=== PATIENT | female | born 2000 | race Caucasian/White ===

== ENCOUNTER 2024-02-21 16:10 | Outpatient (CLI) | payer OTHER, SELFPAY ==
[2024-02-21 16:43] LABS: Basophils Absolute Auto 0.1 K/mm3 (0.0-0.1); Basophils Percent Auto 0.7 % (0.2-1.2); Eosinophils Absolute Auto 0.1 K/mm3 (0-0.3); Eosinophils Percent Auto 1.1 % (0-4.4); Hematocrit 42.3 % (37.0-47.0); Hemoglobin 13.8 g/dL (12.0-15.0); Immature Granulocyte Absolute 0.02 K/mm3 (0.00-0.031); Immature Granulocyte Percent A 0.3 % (0-0.5); Lymphocytes Absolute Auto 2.08 K/mm3 (0.9-3.2); Mean Corpuscular HGB Conc 32.6 g/dl (32-36); Mean Corpuscular Hemoglobin 29.4 pg (26-34); Mean Platelet Volume 10.2 fl (7.4-10.4); Monocytes Absolute Auto 0.5 K/mm3 (0.1-0.6); Monocytes Percent Auto 6.3 % (2.6-8.5); Neutrophils Absolute Auto 4.7 K/mm3 (1.3-6.7); Neutrophils Percent Auto 63.6 % (45.5-73.1); Platelet Count Result 220 k/mm3 (150-375); Red Cell Distribution Width 12.1 % (11.5-14.5); White Blood Count 7.4 K/mm3 (4.5-10.0)
[2024-02-21 16:57] LABS: Alanine Aminotransferase 15 U/L (6-35); Albumin Level 5.1 g/dL (3.5-5.1); Alkaline Phosphatase 67 U/L (38-126); Anion Gap 8 mmol/L (4-12); Aspartate Amino Transferase 27 U/L (14-36); Bilirubin,Total 0.5 mg/dL (0.2-1.3); Blood Urea Nitrogen 12 mg/dL (7-17); Calcium 9.6 mg/dL (8.4-10.2); Carbon Dioxide 25 mmol/L (22-30); Chloride 103 mmol/L (98-107); Estimated Glomerular Filt Rate > 60; Glucose 76 mg/dL (65-110); Potassium 3.9 mmol/L (3.4-5.0); Sodium 136 mmol/L (137-145)
[2024-02-23 01:19] LABS: Progesterone 12.8 ng/mL
== END 2024-02-21 16:11 | disposition home or self-care (01) ==
PROVIDERS: PCP Internal Medicine; Visit Provider Obstetrics & Gynecology
DX: O36.80X0 Pregnancy with inconclusive fetal viability, not applicable or unspecified (principal); Z3A.00 Weeks of gestation of pregnancy not specified
CPT/HCPCS: 36415; 80053; 84144; 84702; 85025

== ENCOUNTER 2024-02-23 13:59 | Outpatient (CLI) | payer OTHER, SELFPAY | END 2024-02-23 14:00 | disposition home or self-care (01) | LOC: ANHLAB 14:01 | PROVIDERS: PCP Internal Medicine; Visit Provider Obstetrics & Gynecology | DX: O36.80X0 Pregnancy with inconclusive fetal viability, not applicable or unspecified (principal); O20.0 Threatened abortion; Z3A.01 Less than 8 weeks gestation of pregnancy | CPT/HCPCS: 36415; 84702; 86850; 86900; 86901 ==

== ENCOUNTER 2024-05-10 09:32 | Outpatient (CLI) | payer MEDICAID, SELFPAY ==
[2024-05-10 10:02] LABS: Hematocrit 37.3 % (37.0-47.0); Hemoglobin 12.5 g/dL (12.0-15.0); Mean Corpuscular HGB Conc 33.5 g/dl (32-36); Mean Corpuscular Hemoglobin 30.2 pg (26-34); Mean Corpuscular Volume 90.1 fl (80-100); Mean Platelet Volume 10.3 fl (7.4-10.4); Platelet Count Result 190 k/mm3 (150-375); Red Blood Count 4.14 M/mm3 (4.2-5.4); Red Cell Distribution Width 13.2 % (11.5-14.5); White Blood Count 8.5 K/mm3 (4.5-10.0)
[2024-05-10 10:50] LABS: HIV 1/2 Ab P24 Ag Result Negative (Negative)
[2024-05-10 10:57] LABS: Hepatitis B Surface Antigen Negative (Negative)
[2024-05-10 11:00] LABS: Rubella IgG Antibody > 110.0 IU/ML
[2024-05-11 10:19] LABS: Varicella IgG Antibody <135.00 index
[2024-05-11 10:33] LABS: Rapid Plasma Reagin Non-Reactive (NonReactive)
[2024-05-11 12:28] LABS: CMV IgG Antibody <0.60 U/mL
[2024-05-18 20:24] LABS: CF Result NEGATIVE (NEGATIVE)
== END 2024-05-10 09:33 | disposition home or self-care (01) ==
LOC: ANHLAB 09:33
PROVIDERS: Student in an Organized Health Care Education/Training Program; PCP Internal Medicine; Visit Provider Obstetrics & Gynecology
DX: Z34.90 Encounter for supervision of normal pregnancy, unspecified, unspecified trimester (principal)
CPT/HCPCS: 36415; 81220; 84702; 85027; 86592; 86644; 86703; 86747; 86762; 86787; 86850; 86900; 86901; 87086; 87088; 87340; G0432

== ENCOUNTER 2025-02-09 00:30 | Day surgery (SDC) | payer OTHER, SELFPAY ==
--- NOTE | 2025-02-02 15:32 | PC.NURSE ---
Report to the Outpatient Waiting Room, entrance under the green pavilion located off [facility], at time _0945_ on date _[id number]_. Planned Procedure Time: _1145_.? Time changes happen often and if your time is changed the preop area will call you the afternoon before. - You and your visitor will be asked to self-screen and do not enter if you have any COVID symptoms. Please call surgeon if you need to reschedule. - A mask is optional within the hospital at this time. Patients may have clear liquids (water, carbonated beverages, clear teas, apple juice) until 3 hours prior to surgery with a maximum of 20 ounces. - No food from midnight until time of surgery and no smoking, or chewing tobacco (or any form of nicotine). No chewing gum, candy or mints. Take only the following medications with a SIP of water on the morning of surgery: ___None____ DO NOT STOP ANY OF YOUR OTHER PRESCRIPTION MEDICATIONS PRIOR TO SURGERY EXCEPT THE FOLLOWING Hold all vitamins and supplements for 3 days per anesthesiologist. Medications to discontinue per physician Date to take last ksqy___[id number]____ Please no make-up, nail citizen of [place], hairspray, perfume, deodorant, or body powder the day of surgery.? No jewelry (including any body piercings) or valuables the day of surgery, leave them at home.? Please take a shower or bath the night before, or the morning of, surgery with an antibacterial soap.? Wear comfortable, loose fitting clothing.? - Jewelry must be removed prior to entering the operating room.? Rings and piercings that are not removed may be cut off. - The hospital will not accept responsibility for valuables.? - Please leave all valuables, including medications, at home the day of surgery. If you are going home after surgery, a licensed pedicab driver must drive you home.? - NO public transportation without another adult if you receive anesthesia. - We recommend that an adult stay with you for 24 hours following discharge. - We also recommend that you do not drive, make important decision, drink alcoholic beverages, or take any drugs that were not prescribed by your health care provider for at least 24 hours after your discharge time. Follow any additional instructions given to you from your surgeon. Telephone instructions given to __Gemma___and asked if any additional questions and then verbalized understanding. Patient advised to call surgeon office or pre surgery nurse liaison [phone] if any additional questions.
[2025-02-02 15:36] VITALS: BMI 21.0
[2025-02-09] VITALS (8 sets, daily range): BP systolic 83–123; BP diastolic 52–85; PULSE 63–79; RESP 14–20; TEMP 36.2–36.5; O2SAT 97–100; BMI 20.2
--- OUTSIDE RECORDS SUMMARY | 2025-02-09 00:32 | XMS_ITS | Clinical Summary ---
Author Organization [facility] Address [address] [place] [address] Care Team Providers Care Body Art Technician Name Role Phone Unavailable Primary Care Provider Unavailabl e Source Comments [facility],non-owned Affiliates and Associated Physician Practices is amultiple site organization consisting of ambulatory clinics and hospital sitesin [place], [place], [place] and [place]. This disclosure is being madepursuant to the Care Everywhere program and may not contain all information available regarding this patient. Last updated 18.[facility] Allergies Active Allergy Reactions Criticality Noted Date Comments Amoxicillin Unknown 04/18/2024 Doxycycline Unknown 04/18/2024 Penicillins Unknown Medium 04/18/2024 Medications * Be aware that medications may not be up to date on this document. Alwaysverify current medications with the patient. Vit-Fe Fumarate-FA ( vitamin) 28-0.8 MG tablet Take 1 (one) tablet by mouth once daily Active ferrous sulfate 325 (65 FE) MG tablet Take 1 (one) tablet by mouth once daily Active Resolved Problems Problem Noted Date Diagnosed Date Resolved Date PRISON: abnormality in pr egnancy (HCC) - Gastroschisis 04/18/2024 05/15/2024 Overview (05/15/2024): Images from the original note were not included. PRISON PATIENT--PLEASE CALL [phone] (ex 2) IF TRIAGED OR ADMITTED Care Provider: Dr. Kimmie Howard [place] [facility] [place] consultants involved: Claudy; JOEL-Jessica Diagnosis: Gastroschisis Planned surveillance: Initial PRISON appointment on 05/25/2024- Patient called on 05/15 to cancel all PRISON appointments. Did not want to reschedule at this time. Stated continuing care elsewhere. Delivery location: Delivery mode: Desired Delivery [place]: follow up: Pharmacy Technician Assistant: Autopsy indicated: Genetics note: Traffic Safety Administrator Concerns: Care plan based on evaluation and is subject to change based on assessment. See Images or Cardiac under Chart Review for US/ ECHO/ MRI reports. Social History Tobacco Use Types Packs/Day Years Used Date Smoking Tobacco: Never Smokeless Tobacco: Never Tobacco Cessation:Counseling Given: Not Answered Alcohol Use Standard Drinks/Week Comments Not Currently 0 (1 standard drink = 0.6 oz pur e alcohol) Comments No Sex and Gender Information Value Date Recorded Sex Assigned at Not on file Legal Sex Female 9:00 AM CDT Gender Identity Not on file Sexual Orientation Not on file Plan of Treatment Health Maintenance Due Date Last Done Comments PAP SMEAR 2001 HIV SCREENING 2016 HPV VACCINE (1 - 3-dose series) 2016 CHLAMYDIA/GONORRHEA SCREENING 2017 MENINGOCOCCAL (Group B) VACCINE SHARED DECISION-MAKING (1 of 2 - Standard) 2017 HEPATITIS C SCREENING 11/26/2019 DTAP/TDAP/TD VACCINES (1 - Tdap) 2020 HEPATITIS B VACCINE (1 of 3 - 19+ 3-dose series) 2020 COVID-19 VACCINE (2 - season) 2024 07/01/2023 DEPRESSION SCREENING 10/11/2024 INFLUENZA VACCINE (Season Ended) 2025 07/12/2019, 08/07/2015, 06/27/2014, Additional history exists ZOSTER VACCINE (1 of 2) 2051 HIB VACCINE Aged Out No longer eligi ble based on patient's age to complete this topic MENINGOCOCCAL GROUPS A/C/Y/W VACCINE Aged Out No longer eligible based on patient's age to complete this topic PNEUMOCOCCAL VACCINE Aged Out No long er eligible based on patient's age to complete this topic Insurance MEDICAID - [place]
--- OUTSIDE RECORDS SUMMARY | 2025-02-09 00:32 | XMS_ITS | Encounter Summary ---
Author Organization [employer] Address [address] [place] [address] Care Team Providers Care Nail Technician Teacher Name Role Phone Hilda Del Rio MD Primary Care Provider [phone] Reason for Visit * Reason Comments Medication Refill Encounter Details Date Type Department Care Team (Late st Contact Info) Description 11/20/2013 Refill [place] [facility] [address] [id number] [facility] [place] [address] Saundra Suarez MD [address] [place] [address] [address] [place] [address] Social History Tobacco Use Types Packs/Day Years Used Date Smoking Tobacco: Never Smokeless Tobacco: Never Alcohol Use Standard Drinks/Week Comments No 0 (1 standard drink = 0.6 oz pur e alcohol) Comments No Sex and Gender Information Value Date Recorded Sex Assigned at Not on file Legal Sex Female 4:12 AM PRODUCT STEWARD Gender Identity Not on file Sexual Orientation Not on file Occupation Industry Job Start Date Job End Date Not on file Not on file Not on file Not on file documented as of this encounter Plan of Treatment Not on file documented as of this encounter Visit Diagnoses Not on filedocumented in this encounter Care Teams Nail Technician Teacher Relationship Specialty Start Date End Date Hilda Del Rio MD PCP - General Pediatrics 09/17/13 documented as of this encounter
--- OUTSIDE RECORDS SUMMARY | 2025-02-09 00:32 | XMS_ITS | Encounter Summary ---
Author Organization [facility] Healthcare Address [address] [place] [address] Care Team Providers Care Bagging Machine Operator Name Role Phone Maya Uriostegui NP Primary Care Provider [phone] Encounter Details Date Type Department Care Team (Late st Contact Info) Description 02/08/2025 Encounter [facility] [address] [place] [id number] Social History Tobacco Use Types Packs/Day Years Used Date Smoking Tobacco: Never Passive Smoke Exposure: Never Smokeless Tobacco: Never Alcohol Use Standard Drinks/Week Comments No 0 (1 standard drink = 0.6 oz pur e alcohol) Social Connection and Isolation Panel [NHANES] A nswer Date Recorded In a typical week, how many times do you talk on the phone with family, friends, or neighbors? Three times a week 09/25/20 How often do you get togethe r with friends or relatives? Three times a week 09/25/2024 How often do you attend chur or christianity services? 1 to 4 times per year 09/25/2024 Do you belong to any clubs o r organizations such as buddhist groups, unions, fraternal or athletic groups, or school groups? No 09/25/2024 How often do you attend meet ings of the clubs or organizations you belong to? Never 09/25/2024 Are you , , di vorced, , never , or living with a partner? Living with partner 09/25/2024 AUDIT-C Answer Date Recorded Q1: How often do you have a drink containing alcohol? Never 02/05/2025 Q2: How many drinks containi ng alcohol do you have on a typical day when you are drinking? Patient does not drink Q3: How often do you have si x or more drinks on one occasion? Never 02/05/2025 Overall Financial Resource Strain (CARDIA) Answe r Date Recorded How hard is it for you to pa y for the very basics like food, housing, medical care, and heating? Not hard at all 09/25/2024 PHQ-2 Answer Date Recorded PHQ-2 Total Score (If total score is 3 or more points, staff should administer the PHQ-9) 0 02/05/2025 Hunger Vital Sign Answer Date Recorded Within the past 12 months, y ou worried that your food would run out before you got the money to buy more. Never true 09/25/20 24 Within the past 12 months, t he food you bought just didn't last and you didn't have money to get more. Never true 09/25/2024 PRAPARE - Transportation Answer Date Re corded In the past 12 months, has l ack of transportation kept you from medical appointments or from getting medications? No 09/10 In the past 12 months, has l ack of transportation kept you from meetings, work, or from getting things needed for daily living? No 09/25/2024 [place] Depression Scale Answer Date Recorded [place] Depression Scale Total 11 11/07/2024 The thought of harming myself has occurred to me . Never 11/07/2024 Housing Stability Vital Sign Answer Jose e Recorded In the last 12 months, was t here a time when you were not able to pay the mortgage or rent on time? No 09/25/2024 In the past 12 months, how m any times have you moved where you were living? 0 09/25/2024 At any time in the past 12 m [facility], were you homeless or living in a jail (including now)? No 09/25/2024 Personal Safety Answer Date Recorded Have you ever been in or are you currently in a harmful physical or emotional relationship or is someone making you feel afraid or unsafe? Denies 09/23/2024 Comments No Sex and Gender Information Value Date Recorded Sex Assigned at Not on file Legal Sex Female 11:28 PM SENIOR OPERATIONS ANALYST Gender Identity Not on file Sexual Orientation Not on file documented as of this encounter Miscellaneous Notes * Note - Kate Bradford RN - 02/07/2025 3:53 PM CDT This note was copied from a baby's chart. Consult Note Patient name: Mine Alicea Mother's Name: Merly Vitale Mother's Age: 23 y.o. 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 Discussed her daily milk volumes. Volumes are steady. I encouraged continued pumping. Mother has no other concerns at this time. Support and encouragement offered. Pumping History: Amount pumped per day: 28-30 oz documented in this encounter Plan of Treatment Not on file documented as of this encounter Visit Diagnoses Not on filedocumented in this encounter Care Teams Bagging Machine Operator Relationship Specialty Start Date End Date Maya Uriostegui NP [address] [address] [place] [address] PCP - General Internal Medicine 02/05/25 documented as of this encounter
--- OUTSIDE RECORDS SUMMARY | 2025-02-09 00:33 | XMS_ITS | Encounter Summary ---
Author Organization [employer] Address [address] [place] [address] Care Team Providers Care Continuous Absorption Process Operator Name Role Phone Hilda Del Rio MD Primary Care Provider [phone] Encounter Details Date Type Department Care Team (Latest Contact Info) Description 05/02/2007 Outpatient Historical [facility] JosepGomez MD [address] [facility] [address] [place] [address] Unspecified Chest Pain (Primary Dx) Social History Tobacco Use Types Packs/Day Years Used Date Smoking Tobacco: Never Assessed Comments Unknown Sex and Gender Information Value Date Recorded Sex Assigned at Not on file Legal Sex Female 4:12 AM GARMENT SORTER Gender Identity Not on file Sexual Orientation Not on file documented as of this encounter Plan of Treatment Not on file documented as of this encounter Visit Diagnoses Diagnosis Chest pain, unspecified- Primary documented in this encounter Care Teams Continuous Absorption Process Operator Relationship Specialty Start Date End Date Hilda Del Rio MD PCP - General Pediatrics 09/17/13 documented as of this encounter
--- OUTSIDE RECORDS SUMMARY | 2025-02-09 00:34 | XMS_ITS | Encounter Summary ---
Author Organization [employer] Address [address] [place] [address] Care Team Providers Care Scrum Coach Name Role Phone Hilda Del Rio MD Primary Care Provider [phone] Encounter Details Date Type Department Care Team (Late st Contact Info) Description 05/02/2007 Outpatient Historical [facility] Support Serv. (Peds Cardiology-[facility]) [address] [place] [address] Gomez Car MD [address] [place] [address] Social History Tobacco Use Types Packs/Day Years Used Date Smoking Tobacco: Never Assessed Comments Unknown Sex and Gender Information Value Date Recorded Sex Assigned at Not on file Legal Sex Female 4:12 AM SOIL FERTILITY EXTENSION SPECIALIST Gender Identity Not on file Sexual Orientation Not on file documented as of this encounter Plan of Treatment Not on file documented as of this encounter Visit Diagnoses Not on filedocumented in this encounter Care Teams Scrum Coach Relationship Specialty Start Date End Date Hilda Del Rio MD PCP - General Pediatrics 09/17/13 documented as of this encounter
--- OUTSIDE RECORDS SUMMARY | 2025-02-09 00:34 | XMS_ITS | Encounter Summary ---
Author Organization [facility] Address [address] [place] [address] Phone Care Team Providers Care Food Beverage Manager Name Role Phone Ruperto Stovall MD Primary Care Provider [phone] Provider, None Primary Care Provider Unavailabl e Provider, None Primary Care Provider Unavailabl e Encounter Details Date Type Department Care Team (Late st Contact Info) Description 09/22/2023 Lab Requisition [facility] [address] [place] [address] Steve Del Cid, PAC [address] [place] [address] Encounter for pre-employment examination Social History Tobacco Use Types Packs/Day Years Used Date Smoking Tobacco: Never Smokeless Tobacco: Never Alcohol Use Standard Drinks/Week Comments Yes 0 (1 standard drink = 0.6 oz pur e alcohol) occasionally Comments No Sex and Gender Information Value Date Recorded Sex Assigned at Not on file Legal Sex Female 8:11 PM CDT Gender Identity Not on file Sexual Orientation Not on file documented as of this encounter Plan of Treatment Not on file documented as of this encounter Procedures Procedure Name Priority Date/Time Associated Diagnosis Comments QUANTIFERON-TB GOLD PLUS Routine 09/22/2023 10:50 AM COLLAR SHAPER OPERATOR Encounter for pre-employment examination documented in this encounter Results * QUANTIFERON-TB GOLD PLUS (09/22/2023 10:50 AM COLLAR SHAPER OPERATOR) NIL CONTROL 0.00 <8.01 IU/mL 09/24/2023 10:[address] [facility] TB ANTIGEN 1 0.04 <0.35 IU/mL 09/24/2023 10:[address] [facility] TB ANTIGEN 2 0.00 <0.35 IU/mL 09/24/2023 10:[address] [facility] MITOGEN CONTROL 10.00 >0.49 IU/mL 09/24/20 10:[address] [facility] INTEPRETATION TB NEGATIVE NEGATIVE, NEGATIVE (TB antigen response less than 25% of internal negative control value) 09/24/2023 10:[address] [facility] Comment:No immune response t o Mycobacterium tuberculosis antigens was noted. M. tuberculosis infection unlikely. Blood No Phlebotomy Charged / Unknown 09/22/2023 10:50 AM COLLAR SHAPER OPERATOR 09/22/2023 12:21 PM [facility] - 09/24/2023 10:22 AM [facility] A POSITIVE QUANTIFERON-TB GOLD PLUS RESULT SHOULD NOT BE THE SOLE OR DEFINITIVE BASIS FOR DETERMINING INFECTION WITH M.TUBERCULOSIS. Diagnosing or excluding tuberculosis disease, and assessing the probability of LTBI, requires a combination of epidemiological, historical, medical and diagnostic findings (e.g., acid fast bacilli (AFB) smear and culture, chest xray) that should be taken into account when interpreting QFT-Plus results. Furthermore, the magnitude of the measured gamma interferon level cannot be correlated to stage or degree of infection, level of immune responsiveness, or likelihood for progression to active disease. The Nil control adjusts for background (e.g., elevated levels of circulating gamma interferon or presence of heterophile antibodies). The Mitogen control serves as an internal positive control and verifies each specimen tested can produce a gamma interferon response. Low mitogen may occur with insufficient lymphocytes, reduced lymphocyte activity due to improper specimen handling, filling/mixing of the mitogen tube, or inability of the patient's lymphocytes to generate gamma interferon. Infection with other Mycobacteria, including M. kansasii, M. szulgai, and M. marinum, may cause false positive results. A negative QuantiFERON-TB Gold Plus result does not preclude the possibility of M. tuberculosis infection or tuberculosis disease: false negative results can be due to incorrect blood sample collection/ improper handling of the specimen, stage of infection (e.g., specimen obtained prior to the development of cellular immune response), co-morbid conditions which affect immune function, or other individual immunological factors. The minimum number of lymphocytes required for a reliable test has not been established and may also be variable. Diagnostic testing for Mycobacterium tuberculosis using Interferon Gamma Release Assays should follow applicable published guidelines, including when testing in populations such as children, women, and HIV-infected or otherwise immunocompromised individuals. https://www.cdc.gov/tb/publications/guidelines/testing.htm us Steve Del Cid [facility] IMMUNOLOGY ORDERABLES Final Result [facility] [address] [place] [address], documented in this encounter Visit Diagnoses Diagnosis Encounter for pre-employment examination Health examination of defined subpopulation documented in this encounter Additional Health Concerns Infection Onset Date Last Indicated Resolved Time COVID - 19 08/21/2024 08/21/2024 08/21/2024 10:3 0 AM COLLAR SHAPER OPERATOR COVID - 19 09/18/2024 09/18/2024 09/18/2024 6:53 PM COLLAR SHAPER OPERATOR documented as of this encounter Care Teams Food Beverage Manager Relationship Specialty Start Date End Date Ruperto Stovall MD [facility] [place] [address] PCP - General Internal Medicine 05/18/23 12/12/23 Provider, None [place] PCP - General 12/13/23 09/17/24 Provider, None [place] PCP - General 09/18/24 documented as of this encounter
--- OUTSIDE RECORDS SUMMARY | 2025-02-09 00:34 | XMS_ITS | Encounter Summary ---
Author Organization [facility] Healthcare Address [address] [place] [address] Care Team Providers Care Branch Services Manager Name Role Phone No, Physician Primary Care Provider [phone] Maya Uriostegui NP Primary Care Provider [phone] Encounter Details Date Type Department Care Team (Late st Contact Info) Description 12/23/2024 Results Follow-Up [facility] Medical [facility] [address] [place] [id number] Eloisa Carr, ROGER [address] [facility] [address] [place] [address] Social History Tobacco Use Types Packs/Day Years [...] 09/25/2024 How often do you attend chur ch or islam services? 1 to 4 times per year 09/25/2024 Do you belong to any clubs o r organizations such as bahai groups, unions, fraternal or athletic groups, or school groups? No 09/25/2024 How often do you attend meet ings of the clubs or organizations you belong to? Never 09/25/2024 Are you , , di vorced, , never , or living with a partner? Living with partner 09/25/2024 Overall Financial Resource Strain (CARDIA) Answe r Date Recorded How hard is it for you to pa y for the very basics like food, housing, medical care, and heating? Not hard at all 09/25/2024 PHQ-2 Answer Date Recorded PHQ-2 Total Score (If total score is 3 or more points, staff should administer the PHQ-9) 0 06/17/2023 Hunger Vital Sign Answer Date Recorded Within [...] things needed for daily living? No 09/25/2024 [place] Depression Scale Answer Date Recorded [place] Depression Scale Total 11 11/07/2024 The thought [...] any time in the past [address] [facility], were you homeless or living in a chcf (including now)? No 09/25/2024 Personal Safety Answer Date Recorded Have you ever been in or are you currently in a harmful physical or emotional relationship or is someone making you feel afraid or unsafe? Denies 09/23/2024 Comments No Sex and Gender Information Value Date Recorded Sex Assigned at Not on file Legal Sex Female 11:28 PM [employer] Gender Identity Not on file Sexual Orientation Not on file documented as of this encounter Miscellaneous Notes * Result Encounter Note - Tiffany Samuel CMA - 12/23/2024 10:13 AM CDT Pt has called and results were relayed. Tiffany * Result Encounter Note - Tiffany Samuel CMA - 12/23/2024 9:20 AM CDT Called with no answer. Voicemail was left asking the patient to give clinic a call. Tiffany documented in this encounter Plan of Treatment Not on file documented as of this encounter Visit Diagnoses Not on filedocumented in this encounter Care Teams Branch Services Manager Relationship Specialty Start Date End Date No, Physician PCP - General 06/07/24 02/04/25 Maya Uriostegui NP [address] [address] PCP - General Internal Medicine 02/05/25 documented as of this encounter
--- OUTSIDE RECORDS SUMMARY | 2025-02-09 00:34 | XMS_ITS | Encounter Summary ---
Author Organization [facility] Address [address] [place] [address] Phone Care Team Providers Care Commercial Driver Name Role Phone Hilda Del Rio MD Primary Care Pro vider Donna Chaudhary MD Primary Care Provider Ruperto Stovall MD Primary Care Provider + No, Physician Primary Care Provider [phone] Maya Uriostegui NP Primary Care Provider [phone] Encounter Details Date Type Department Care Team (Late st Contact Info) Description 12/13/2018 Ophth Exam [facility] Ophthalmology [address] [place] [address] 1st [place] [id number] Christine Miles MD PhD [address] [id number] Social History Tobacco Use Types Packs/Day Years Used Date Smoking Tobacco: Never Smokeless Tobacco: Never Alcohol Use Standard Drinks/Week Comments No 0 (1 standard drink = 0.6 oz pur e alcohol) Comments No Sex and Gender Information Value Date Recorded Sex Assigned at Not on file Legal Sex Female 11:28 PM REFUND SPECIALIST Gender Identity Not on file Sexual Orientation Not on file documented as of this encounter Plan of Treatment Not on file documented as of this encounter Visit Diagnoses Not on filedocumented in this encounter Eye Exam Visual Acuity (Near card) Right eye Left eye Near sc 20/20 20/20 Tonometry (Tonopen, 4:16 PM) Right eye Left eye Pressure 17 17 Pupils Pupils Dark Light Shape React APD Right eye PERRL 4 2 Round Brisk None Left eye PERRL 4 2 Round Brisk None Visual Pate Right eye Left eye Full Full Extraocular Movement Right eye Left eye Full, Ortho Full, Ortho Neuro/Psych Oriented x3: Yes Mood/Affect: Normal Dilation Both eyes: 1.0% Mydriacyl, 1 .0% Cyclogyl @ 4:17 PM External Exam Right eye Left eye External Normal Normal There is a small nodule in the left occipital area, no redness/tenderness/warmth, about 1cm in diameter Slit Lamp Exam Right eye Left eye Lids/Lashes Normal. No obvious l id swelling, nontender, no erythema/warmth/pain. No proptosis Normal Conjunctiva/Sclera White and quiet. few follicles in the inferior palpebral conj, no granuloma White and quiet. few follicles in the inferior palpebral conj, no granuloma Cornea Clear. No KP Clear. No KP Anterior Chamber Deep and quiet. No hypopyon Alicia p and quiet. No hypopyon Iris Round and reactive. No nodules R ound and reactive. No nodules Lens Clear Clear Vitreous Normal Normal Fundus Exam Right eye Left eye Disc Normal. Sharp margin. No edema N ormal. Sharp margin. No edema C/D Ratio 0.25 0.25 Macula Normal. No exudates or macular s tar Normal. No exudates or macular star Vessels Normal. No exudates Normal Periphery Normal. No lesions Normal. No le caryn. Care Teams Commercial Driver Relationship Specialty Start Date End Date Hilda Del Rio MD PCP - General 01/20/12 07/26/19 Donna Chaudhary MD PCP - General Pediatrics 07/27/19 10/20/21 Ruperto Stovall MD [address] [place] [address] PCP - General Internal Medicine 10/21/21 06/06/24 No, Physician PCP - General 06/07/24 02/04/25 Maya Uriostegui NP [address] [address] PCP - General Internal Medicine 02/05/25 documented as of this encounter
--- OUTSIDE RECORDS SUMMARY | 2025-02-09 00:34 | XMS_ITS | Clinical Summary ---
Author Organization [facility] Address [address] [place] [id number] Phone Care Team Providers Care Hazard Waste Handler Name Role Phone Hilda Del Rio MD Primary Care Provider [phone] Allergies Active Allergy Reactions Criticality Noted Date Comments Penicillins Hives,Rash High 09/17/2013 Medications norethindrone-e .estradiol-iron (LO LOESTRIN FE) 1 mg-10 mcg (24)/10 mcg (2) Tablet per tablet Take 1 Tablet by mouth daily at bedtime. 28 Tablet 1 06/29/2017 2:08 PM CDT 06/29/2017 Active DULoxetine (CYMBALTA) 20 mg Capsule, Delayed Release(E.C.) Take 1 Capsule (20 mg) by mouth 2 times daily. 60 Capsule 1 06/29/2017 2:08 PM CDT 06/29/2017 Active Active Problems Problem Noted Date Diagnosed Date DMDD (disruptive mood dysregulation disorder) Anxiety disorder 11/13/2013 Affective psychosis, bipolar Severe episode of recurrent major depressive disorder, without psychotic features Family History Medical History Relation Name Comments Alcohol abuse Maternal Aunt Depression Maternal Uncle Depression Mother Relation Name Status Comments Father Alive Maternal Aunt Maternal Uncle Mother Alive Social History Tobacco Use Types Packs/Day Years Used Date Smoking Tobacco: Never Smokeless Tobacco: Never Tobacco Cessation:Counseling Given: No Alcohol Use Standard Drinks/Week Comments No 0 (1 standard drink = 0.6 oz pur e alcohol) Comments No Sex and Gender Information Value Date Recorded Sex Assigned at Not on file Legal Sex Female 4:12 AM WOOD ROOM HAND Gender Identity Not on file Sexual Orientation Not on file Occupation Industry Job Start Date Job End Date Not on file Not on file Not on file Not on file Last Filed Vital Signs Vital Sign Reading Time Taken Comments Blood Pressure 121/69 06/29/2017 9:19 AM CDT Pulse 80 06/29/2017 9:19 AM CDT Temperature 36.4 C (97.6 F) 06/29/2017 9:19 AM CDT Respiratory Rate 18 06/29/2017 9:19 AM CDT Oxygen Saturation 98% 06/29/2017 9:19 AM CDT Inhaled Oxygen Concentration - - Weight 38.3 kg (84 lb 6.4 oz) 06/27/2017 9:38 AM CDT Height 149.9 cm (4' 11 ) 06/23/2017 3:28 PM CDT Body Mass Index 17.05 06/23/2017 3:28 PM CDT Plan of Treatment Health Maintenance Due Date Last Done Comments HPV VACCINES (1 - 3-dose series) 2016 CHLAMYDIA SCREENING (ANNUAL) 11-24 YEARS 04/11/2018 04/11/2017, 01/23/2017 DTAP/TDAP/TD VACCINES (1 - Tdap) 2020 HEPATITIS B VACCINES (1 of 3 - 19+ 3-dose series) 2020 CERVICAL CANCER SCREENING 2022 HPV/Cotest (21-29) 2022 PAP SMEAR 2022 INFLUENZA VACCINE (#1) 2024 Procedures Procedure Name Priority Date/Time Associated Diagnosis Comments GC/CHLAMYDIA, URINE Routine 04/11/2017 8 :41 AM CDT from Last 3 Months or Most Recently Relevant to Health Maintenance Results * GC/CHLAMYDIA, URINE (04/11/2017 8:41 AM CDT) CHLAMYDIA DNA AMPLIFICATION NOT DETECTED Not Detected 04/12/2017 11:45 AM CDT [facility] GC DNA AMPLIFICATION NOT DETECTED Not Detected 04/12/2017 11:45 AM CDT [facility] Urine URINE SPECIMEN / Unknown Collection / Unknown 04/11/2017 8:41 AM CDT 04/11/2017 8:44 AM CDT [facility] - 04/12/2017 11:45 AM CDT Results should not be used for the evaluation of suspected sexual abuse or for other medico-legal indications. The only legally accepted results are from culture. Results cannot be used to assess therapeutic success or failure since nucleic acids may persist following antimicrobial therapy. This test was developed and its performance characteristics determined by [facility]. It has not been cleared by U.S. Food and Drug Administration.The FDA has determined that such clearance or approval is not necessary. This test is used for clinical purposes. It should not be regarded as investigational or for research.This laboratory is certified under the Clinical Laboratory Improvement Amendments of 1988 (CLIA-88) as qualified to perform high complexity clinical laboratory testing. Stephanie Chavira MD URINE ORDERABLES COM Final Result [facility] CLIA# [id number] [address] [id number] from Last 3 Months or Most Recently Relevant to Health Maintenance Insurance RX [employer] Member Subscriber Plan / Payer (Ef fective for All Dates) Name:Merly Abad Relation to Subscriber:Child Name:Merly Abad Payer ID:Not on file Group ID:[facility] Type:RX Commercial Address: [address] [employer]) [facility] [place] [id number] [place] [address] Advance Directives For more information, please contact: [phone] * Full Code (Latest Code Status on File) Date Activated Date Inactivated Comments 06/23/2017 4:13 PM 06/29/2017 4:14 PM * Full Code Date Activated Date Inactivated Comments 06/09/2017 12:12 PM 06/16/2017 7:12 PM * Full Code Date Activated Date Inactivated Comments 04/08/2017 9:30 PM 04/14/2017 6:41 PM Care Teams Hazard Waste Handler Relationship Specialty Start Date End Date Hilda Del Rio MD PCP - General Pediatrics 09/17/13
--- OUTSIDE RECORDS SUMMARY | 2025-02-09 00:34 | XMS_ITS | Encounter Summary ---
Author Organization [facility] Address [address] [place] [address] Care Team Providers Care Clinical Data Specialist Name Role Phone Hilda Del Rio MD Primary Care Provider [phone] Encounter Details Date Type Department Care Team (Late st Contact Info) Description 06/03/2007 Outpatient Historical [facility] Gomez Car MD [address] [place] [address] Social History Tobacco Use Types Packs/Day Years Used Date Smoking Tobacco: Never Assessed Comments Unknown Sex and Gender Information Value Date Recorded Sex Assigned at Not on file Legal Sex Female 4:12 AM PIECER UP Gender Identity Not on file Sexual Orientation Not on file documented as of this encounter Plan of Treatment Not on file documented as of this encounter Visit Diagnoses Not on filedocumented in this encounter Care Teams Clinical Data Specialist Relationship Specialty Start Date End Date Hilda Del Rio MD PCP - General Pediatrics 09/17/13 documented as of this encounter
--- OUTSIDE RECORDS SUMMARY | 2025-02-09 00:34 | XMS_ITS | Clinical Summary ---
Author Organization [facility] Address [address] [place] [address] Phone Care Team Providers Care Clip Wrapper Name Role Phone Provider, None Primary Care Provider Unavailabl e Allergies Active Allergy Reactions Criticality Noted Date Comments Azithromycin Hives 08/11/2023 Clindamycin Hives 11/08/2022 Doxycycline Hives 11/08/2022 Penicillins Hives 11/08/2022 Medications No known medications Active Problems Estimated Date of Delivery Comme nts Yes 10/26/2024 No known active problems Social History Tobacco Use Types Packs/Day Years Used Date Smoking Tobacco: Never Smokeless Tobacco: Never Tobacco Cessation:Counseling Given: Not Answered Alcohol Use Standard Drinks/Week Comments Yes 0 (1 standard drink = 0.6 oz pur e alcohol) occasionally Estimated Date of Delivery Comme nts Yes 10/26/2024 Sex and Gender Information Value Date Recorded Sex Assigned at Not on file Legal Sex Female 8:11 PM CDT Gender Identity Not on file Sexual Orientation Not on file Last Filed Vital Signs Vital Sign Reading Time Taken Comments Blood Pressure 123/81 09/19/2024 12:11 AM PHONE TRIAGE SPECIALIST Pulse 100 09/19/2024 12:11 AM PHONE TRIAGE SPECIALIST Temperature 36.9 C (98.4 F) 09/18/2024 5:49 PM PHONE TRIAGE SPECIALIST Respiratory Rate 18 09/19/2024 12:11 AM PHONE TRIAGE SPECIALIST Oxygen Saturation 100% 09/19/2024 12:11 AM PHONE TRIAGE SPECIALIST Inhaled Oxygen Concentration - - Weight 59.9 kg (132 lb) 09/18/2024 5:49 PM PHONE TRIAGE SPECIALIST Height 157.5 cm (5' 2 ) 09/18/2024 5:49 PM PHONE TRIAGE SPECIALIST Body Mass Index 24.14 09/18/2024 5:49 PM PHONE TRIAGE SPECIALIST Plan of Treatment Health Maintenance Due Date Last Done Comments Hepatitis C Virus (HCV) Screening 2001 Meningococcal B Immunization (1 of 2 - Standard) 2017 Pap Smear 2022 SARS-COV-2 Immunization ( season) 2024 Pneumococcal Immunization Combined Aged Out 03/14/2003, 08/24/2002, 05/24/2002, Additional history exists No longer eligible based on patient's age to complete this topic Hepatitis B Immunization Completed 003, 08/24/2002, 01/04/2002, Additional history exists Human Papillomavirus (HPV) Immunization Completed 12/28/2013, 08/21/2013, 06/26/2013 Meningococcal Immunization (ACWY) Completed 07/12/2019, 06/26/2013 Influenza Immunization Completed , 07/12/2019, 08/07/2015, Additional history exists DTaP/Tdap/Td Immunization Discontinued 2023, 06/22/2012, 03/01/2007, Additional history exists TdaP Immunization Completed 08/14/2024, 06/22/2012 Respiratory Syncytial Virus (RSV) Immunization (Adult) Completed 08/31/2024 Rotavirus Immunization Aged Out No lo nger eligible based on patient's age to complete this topic Insurance [place] * Guarantor: [facility] Account Type Relation to Patient Date of Phone Billing Address Institutional Other [id number] [place] [address] Care Teams Clip Wrapper Relationship Specialty Start Date End Date Provider, None [place] PCP - General 09/18/24
--- OUTSIDE RECORDS SUMMARY | 2025-02-09 00:34 | XMS_ITS | Clinical Summary ---
Author Organization [facility] Address [address] [place] [address] Care Team Providers Care Manager Financial Reporting Name Role Phone Maya Uriostegui NP Primary Care Provider [phone] Allergies Active Allergy Reactions Criticality Noted Date Comments Amoxicillin Rash Medium 12/21/2024 Azithromycin Hives Medium 08/11/2023 Clindamycin Rash,Hives Medium 12/13/2018 Doxycycline Hives Medium 11/08/2022 Penicillins Hives,Rash Medium 11/08/2022 Reaction: RASH as child Has tolerated cephalosporins Medications vit no.124/iron/fol ic ( VITAMIN ORAL) Take 1 capsule by mouth daily 02/09/20 24 Active acetaminophen 500 mg capsuleIndicati ons:Pain Take 2 capsules (1,000 mg total) by mouth every 6 (six) hours as needed for pain 60 tablet 09/26/20 24 025 Discontin ued(Thera py completed ) docusate sodium (COLACE) 100 mg capsuleIndicati ons:constipatio n,Stool Softener Take 1 capsule (100 mg total) by mouth 2 (two) times a day as needed for constipation 30 capsule 09/26/20 24 025 Discontin ued(Thera py completed ) ibuprofen (ADVIL,MOTRIN) 600 mg tabletIndicatio ns:Cramps Take 1 tablet (600 mg total) by mouth every 6 (six) hours as needed for pain 60 tablet 09/26/20 24 025 Discontin ued(Patie nt Reported) polyethylene glycol (MIRALAX) 17 gram/dose bulk powder Take 17 g by mouth daily as needed (constipation) 289 g 09/26/20 24 025 Discontin ued(Thera py completed ) lidocaine (LIDODERM) 5 % Place 1 patch on the skin daily as needed for pain Remove & discard patch within 12 hours or as directed by MD. 10 patch 09/26/20 24 025 Discontin ued(Thera py completed ) cetirizine (ZyrTEC) 10 mg tablet Take 1 tablet (10 mg total) by mouth daily as needed for allergies 30 tablet 2 09/26/20 24 025 Discontin ued(Thera py completed ) fluticasone propionate (FLONASE) 50 mcg/actuation nasal sprayIndication s:Allergic rhinitis, unspecified seasonality, unspecified trigger Administer 2 sprays into each nostril daily 18.2 mL 12/22/19 25 025 Discontin ued(Thera py completed ) Active Problems Problem Noted Date Diagnosed Date History of pre-eclampsia 02/05/2025 Wellness examination 02/05/2025 Assessment & Plan (02/05/2025 4:38 PM CDT): Routine health maintenance objectives discussed and orders placed for any outstanding screening studies. Physical exam performed as above. Routine annual labs obtained and will be reviewed with patient when results available. Encouraged regular physical activity--moderate activity for a total of 150 minutes per week over 3-5 days. Encouraged healthy diet with regular fresh fruits and vegetables limited in processed carbohydrates. Orders: CBC with auto differential; Future Comprehensive metabolic panel; Future Lipid panel; Future Anxiety 02/05/2025 Assessment & Plan (02/05/2025 4:38 PM CDT): Patient would like to hold off on any anxiety medication at this time. BMI 20.0-20.9, adult 02/05/2025 Assessment & Plan (02/05/2025 4:38 PM CDT): History of ovarian cyst 05/12/2023 Assessment & Plan (09/10/2023 10:29 AM CAR COOPER): Discussed nature of ovarian cyst. Patient aware to help manage/decrease occurrence of ovarian cyst a low-dose oral combined contraceptive pill is often therapeutic. Patient does not desire to be on a form of hormonal control at this time. Can use [id number] NSAIDs for pain relief if needed. Assessment & Plan (05/12/2023 11:31 AM CDT): Pelvic ultrasound results from ER visit on May 03, 2023 reviewed. Patient aware cyst has ruptured and appears to be resolving appropriately. Continue to monitor symptoms and call if pelvic pain returns. Does not desire a form of hormonal contraceptive to help manage cycles and prevent cyst formation at this time. Resolved Problems Problem Noted Date Diagnosed Date Resolved Date care following vaginal delivery 09/23/2024 02/05/2025 Overview (09/26/2024): # ID: Afebrile. No signs/symptoms of infection. VZV NI: declines Varivax. # Heme: Hgb 10.5 > EBL 200 mL. Hemodynamically stable. #Sinus Congestion: Zyrtec ordered. # CV/Pulm: #Pre-eclampsia without severe features - Blood pressures well controlled on no medications . Asymptomatic, denies STAFFORD/RUQ pain/vision changes. CBC/CMP notable for AST/ALT 46/28 , UPC 0.7. Enrolled in home blood pressure monitoring. Text received. # GI/: Tolerating PO. Voiding spontaneously. # Pain: Moderately controlled with above regimen. Lidocaine patch added. # MOC: Declines until visit. # MOF: . Urine drug screen not indicated. Patient informed of results: N/A. # Post DVT prophylaxis: The patient has the following MAJOR risk factors none and the following MINOR risk factors preeclampsia. SCDs ordered for VTE prophylaxis. # Disposition: Follow up task visit with MFM scheduled 10/12. Desires discharge home today. Service Coverage These phones are service phones and carried 03/05 in house: R1 (first call) [phone] R1 alt (second call) [phone] R4 (Chief) [phone] Poor growth affecting management of mother in second trimester 07/31/2024 11/07/2024 Overview (09/11/2024): EFW 9%, AC 7%, PI wnl S/p counseling 08/14/2024 PI elevated- >99% 08/22/2024 PI 91% 09/11/2024 EFW 4%, AC 3%, PI >99% Plan: Continue q3 week growth US Weekly dopplers with BPP Weekly NSTs Delivery currently scheduled for 37w [facility] precautions reviewed Assessment & Plan (09/04/2024 10:19 AM CAR COOPER): PI wnl, BPP 05/18, [facility] precautions reviewed Assessment & Plan (07/31/2024 11:48 AM CDT): Reviewed increased risk of stillbirth with FGR and importance of weekly dopplers and 2x/weekly testing. [facility] precautions reviewed. Maternal varicella, non-immune 06/14/2024 11/07/2024 Overview (06/14/2024): For Varivax pp Supervision of high-risk pre gnancy, unspecified trimester 05/17/2024 11/07/2024 Overview (09/21/2024): [x] Full M Care; [x] Blue Team Referring Provider: Danielito White [] or Medicare Insurance [x] Dating Criteria: LESLY = 1T US [] Labs: Rh [O+], Ab [Neg], Rubella [Im], HIV [Neg], HepBSAg [Neg], RPR [NR ], Hep C [Neg], Varicella [Non-Im ], GC/CT [no records] [x] Aneuploidy NIPT LR [] Carrier Screening [x] CBC/Hgb 12.8/37.3/192k [x] UCx: Insignificant growth 07/11/2024 [] Pap: Never had, needs PP [x] Flu Shot (Jun-Sep): 07/11/24 GT [] COVID: counseled on risks of maternal and and pt declines [] LD ASA (if indicated) starting at 12 weeks: [] EPDS [ 11]; [facility] referral- discussed 2nd Tri Labs: [x] Anatomy ultrasound: Gastroschisis [x] CBC/1hr gtt at 24-28wks: 10.8/33.1/206k, 1hr GTT 121 [x] Tdap (27-36wks): GIVEN 08/14/2024 AM 3rd Tri Labs: [x] CBC/HIV/RPR: 10.4/32.1/236k HIV [NR] RPR [NR] [x] GBS: Negative on 09/04/2024 [x] GC/CT (if indicated): neg/neg [x] testing: Twice weekly testing d/t FGR [x] RSV- desires at 32w 08/31/2024 au Counseling [x] MOD: FCC to schedule at 37 weeks 2/2 elevated dopplers [x] Place of delivery: [facility] [x] Epidural: likely desires but has questions- anesthesia consult placed [x] Blood Products: willing to accept [x] MOC: s/p counseling and pt declines and plans for condoms [x] Method of feeding: breast [x] Meat Carrier: discussed, handouts previously provided [x] PP Depression Discussed: Assessment & Plan (09/11/2024 11:20 AM CAR COOPER): Discussed that the plan could change at anytime. Discussed that if dopplers became worse or if testing was no longer reassuring we could change the plan. 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 Payal SUAREZ on 05/1608/14/2024 elevated dopplers, no longer good study candidate Plan: [x] Serial ultrasounds q4w starting at 24 weeks [x] 2x/weekly testing 2/2 FGR [x] [facility] consultation [x] IOL at 37 weeks 2/2 elevated dopplers History of chlamydia infection 03/19/2023 05/12/2024 Neck mass 10/21/2021 05/12/2024 Patient underweight 07/04/2017 05/12/20 Overview (07/04/2017): Enc pt to not skip meals; enc 3 meals / day with high fat healthy snacks. Encounter for contraceptive management 07/04/2017 05/12/2024 Assessment & Plan (07/04/2017 8:42 PM CDT): The precert for Nexplanon; will insert the implant during 1st 5 days of menstrual cycle; if patient not cooperative in limiting her mother know when her period starts, will have mother bring her in for Nexplanon insertion. Encounters Date Type Department Care Team Description 02/08/[address] [address] 02/05/2025 4:17 PM CDT - 02/05/2025 11:59 PM CDT Hospital Encounter [address] [address] Wellness examination; Dizziness; Near syncope; Screening, lipid Discharge Disposition: Discharge to home or self care 02/05/2025 4:15 PM CDT Lab [facility] Outpatient Lab at [address] [address] Wellness examination (Primary Dx) 02/05/2025 3:30 PM CDT Office Visit [facility] Primary Care at [address] [address] Maya Uriostegui NP BMI 20.0-20.9, adult (Primary Dx); Wellness examination; Dizziness; Near syncope; Screening, lipid; Anxiety 02/05/[address] [address] 01/26/[address] [address] 01/20/[address] [address] 01/09/[address] [address] 12/31/2024 Encounter [place] [address] [place] [address] 12/23/2024 Encounter [place] [address] [address] [place] [address] 12/23/2024 Results Follow-Up [facility] at [address] [place] [address] Eloisa Carr NP 12/21/2024 10:19 AM CDT - 12/21/2024 11:59 PM CDT Hospital Encounter [address] [address] Sore throat Discharge Disposition: Discharge to home or self care 12/21/2024 9:00 AM CDT Office Visit [facility] at [place] [address] [place] [address] Sapphire Laws NP Allergic rhinitis, unspecified seasonality, unspecified trigger (Primary Dx); Sore throat 12/17/2024 Encounter [place] [address] [place] [address] 12/10/2024 Encounter [place] [address] [place] [address] 12/05/2024 Encounter [place] [address] [place] [address] 11/26/2024 Encounter [address] [address] [place] [address] 11/14/2024 Encounter [place] [address] [address] [place] [address] from Last 3 Months Immunizations Immunization Administration Dates Next Due DTaP 03/01/2007, 3,05/24/2002,03/24,02/01/2002 HPV, Quadrivalent 12/28/2013,08/21/2013,06/26/20 13 Hep A, Pediatric 06/29/2014,06/26/2013 Hep B, Adolescent or Pediatric 06/20/2003,2001 Hep B, Unspecified 08/24/2002,2001 HiB 03/14/2003, 2,03/24/2002,02/01 IPV 03/01/2007, 3,03/24/2002,02/01 Influenza LAIV (Nasal) 06/22/2012,08/27/2011, Influenza, Live, Intranasal, Quadrivalent 08/07/2015,06/27/2014,06/26/2013 Influenza, Quadrivalent, Spl it, Preservative Free, Intramuscular 07/12/2019 Influenza, Trivalent, Cell Culture-based MDCK, Preservative Free, Antibiotic Free, Intramuscular 07/11/2024 Influenza, Trivalent, Preser vative Free, Intramuscular 08/27/2005 MMR 03/01/2007,03/14/2003 Meningococcal Conjugate (Menveo) 07/12/2019,06/11 Pneumococcal Conjugate 7-Valent 03/14/20 03,08/24/2002,05/24/2002,02/01 RSV, Bivalent, Protein Subun it Rsvpref, Diluent (Abrysvo) 08/31/2024 Tdap 08/14/2024,06/22/2012 Varicella 09/26/2024(Deferred: Patient Refused),03/01/2007,12/12/2002 Surgical History Surgery Date Site/Laterality Comments WISDOM TOOTH EXTRACTION AVULSION TOENAIL PLATE Medical History Medical History Date Comments Anxiety Ear infection 05/09/2024 double Patient underweight 07/04/2017 Enc pt to no t skip meals; enc 3 meals / day with high fat healthy snacks. Neck mass 10/21/2021 History of chlamydia infection 03/19/2023 Family History Medical History Relation Name Comments Hypertension Father Heart disease Mother Thyroid disease Mother Relation Name Status Comments Father Alive Mother Alive Social History Tobacco Use Types Packs/Day Years Used Date Smoking Tobacco: Never Passive Smoke Exposure: Never Smokeless Tobacco: Never Tobacco Cessation:Counseling Given: Not Answered Alcohol Use Standard Drinks/Week Comments No 0 [...] often do you attend chur ch or confucianist services? 1 to 4 times per year 09/25/2024 Do you belong to any clubs o r organizations such as hindu groups, unions, fraternal or athletic groups, or [...] things needed for daily living? No 09/25/2024 Salem Depression Scale Answer Date Recorded Salem Depression Scale Total 11 11/07/2024 The thought [...] any time in the past 12 m [facility], were you homeless or living in a intermediate (including now)? No 09/25/2024 Personal Safety Answer Date Recorded Have you ever been in or are you currently in a harmful physical or emotional relationship or is someone making you feel afraid or unsafe? Denies 09/23/2024 Comments No Sex and Gender Information Value Date Recorded Sex Assigned at Not on file Legal Sex Female 11:28 PM CAR COOPER Gender Identity Not on file Sexual Orientation Not on file Obstetrics History Para Term AB IAB SAB Ectopic Multiple Livin g Live Births 1 1 0 1 0 0 0 0 0 1 1 Date Outcome GA Total Labor Labor/2nd/3rd Weight Sex Type Anes PTL Jessie A1 A5 Name Clin 2023 35w 3d 0h 17m 0h 10m/0h 07m 2.02 kg (4 lb 7.3 oz) F Vagina l Epidur al Livin g 5 5 Inder w J Ivy manzano, Mini Esteves MD Complications:None Delivery Location:[facility] Main C ampus ([facility] 58LD) Last Filed Vital Signs Vital Sign Reading Time Taken Comments Blood Pressure 100/64 02/05/2025 3:38 PM CDT Pulse 103 02/05/2025 3:38 PM CDT Temperature 37.2 C (99 F) 02/05/2025 3:38 PM CDT Respiratory Rate 16 02/05/2025 3:38 PM CDT Oxygen Saturation 98% 02/05/2025 3:38 PM CDT Inhaled Oxygen Concentration - - Weight 51.3 kg (113 lb) 02/05/2025 3:38 PM CDT Height 157.5 cm (5' 2 ) 02/05/2025 3:38 PM CDT Body Mass Index 20.67 02/05/2025 3:38 PM CDT Plan of Treatment Health Maintenance Due Date Last Done Comments Meningococcal B Vaccine (1 o f 2 - Standard) 2017 Chlamydia and Gonorrhea (GC/ CT) Screening 08/24/2025 08/24/2024, 06/17/2023, 05/03/2023, Additional history exists Depression Screening 02/05/2026 02/05/2025, 11/07/2024, 06/17/2023, Additional history exists Regular Well Visit/Exam 18-64 02/05/2026, 03/19/2023, 03/12/2022 Cervical Cancer Screening 03/19/2026 03/19/2023 DTaP/Tdap/Td Vaccine (8 - Td or Tdap) 08/14/2034 08/14/2024, 06/22/2012, 03/01/2007, Additional history exists Pneumococcal vaccine <65 Completed 003, 08/24/2002, 05/24/2002, Additional history exists Hepatitis B Screening Completed 06/20/2003 , 08/24/2002, 01/04/2002, Additional history exists Varicella Vaccines Completed 03/01/2007, 12/12/2002 HPV Vaccines Completed 12/28/2013, 08/11, 06/26/2013 Influenza Vaccine Completed 07/11/2024, , 08/07/2015, Additional history exists Hepatitis C Screening Completed 07/31/2024 Medical Devices Implanted Type Area Lining Strap Closer Device Identifier Shelf Expiration Date Model / Serial / Lot Nexplanon Left: Arm Procedures Procedure Name Priority Date/Time Associated Diagnosis Comments EGFR Routine 02/05/2025 4:17 PM CDT Wellness examination Dizziness Near syncope DIFFERENTIAL AUTO Routine 02/05/2025 4:1 7 PM CDT Wellness examination Dizziness Near syncope FERRITIN Routine 02/05/2025 4:17 PM CDT Dizziness Near syncope FOLATE Routine 02/05/2025 4:17 PM CDT Dizziness Near syncope VITAMIN D 25 HYDROXY Routine 02/05/2025 4:17 PM CDT Dizziness VITAMIN B12 Routine 02/05/2025 4:17 PM CDT Dizziness Near syncope THYROID FUNCTION CASCADE Routine 02/05/2025 4:17 PM CDT Dizziness Near syncope LIPID PANEL Routine 02/05/2025 4:17 PM CDT Wellness examination Screening, lipid IRON PROFILE W/ IBC Routine 02/05/2025 4 :17 PM CDT Dizziness Near syncope COMPREHENSIVE METABOLIC PANEL Routine 02/05/2025 4:17 PM CDT Wellness examination Dizziness Near syncope CBC WITH AUTO DIFFERENTIAL Routine 02/05/2025 4:17 PM CDT Wellness examination Dizziness Near syncope THROAT CULTURE Routine 12/21/2024 10:19 AM CDT Sore throat POCT RAPID STREP Routine 12/21/2024 9:51 AM CDT Sore throat N. GONORRHOEAE/C. TRACHOMATIS AMPLIFICATION Routine 08/24/2024 1:38 PM CAR COOPER Supervision of high-risk , unspecified trimester HEPATITIS C ANTIBODY Routine 07/31/2024 10:20 AM CDT Supervision of high-risk , unspecified trimester PAP WITH REFLEX TO HIGH RISK HPV Routine 03/19/2023 11:54 AM CDT Well woman exam from Last 3 Months or Most Recently Relevant to Health Maintenance Results * eGFR (02/05/2025 4:17 PM CDT) eGFR >90 >=60 mL/min/1. 73 m2 Comment: Interpretive Data Reference Interval Normal >/= 90 mL/min/1.73m2 Mildly decreased* 60 - 89 mL/min/1.73m2 Mildly to moderately decreased 45 - 59 mL/min/1.73m2 Moderately to severely decreased 30 - 44 mL/min/1.73m2 Severely decreased 15 - 29 mL/min/1.73m2 Kidney Failure < 15 mL/min/1.73m2 *Relative to young adult level Estimated glomerular filtration rate is determined by the 2020 CKD-EPI equation recommended by the National Kidney Foundation (A Unifying Approach to GFR Estimation: Recommendations of the NKF-ASK Task Force on Reassessing the Inclusion of Race in Diagnosing Kidney Disease, JASN 2020). The CKD-EPI equation should not be used for patients with unstable renal function and has not been validated in children and those over 70. Current interpretive data was last reviewed 2021. Blood 02/05/2025 4:17 PM CDT 02/05/2025 10:13 PM CDT Maya Uriostegui NP LAB BLOOD ORDERABLES Final Re sult [facility] [id number] Department [place] [address] * Differential, auto (02/05/2025 4:17 PM CDT) Neutrophil abs 3.27 1.50 - 6.50 K/cumm Imm gran abs 0.01 0.00 - 0.10 K/cumm [facility] Lymphocyte abs 2.31 0.80 - 3.30 K/cumm [facility] Monocyte abs 0.42 0.20 - 0.80 K/cumm [facility] Eosinophil abs 0.10 0.00 - 0.50 K/cumm [facility] Basophil abs 0.03 0.00 - 0.10 K/cumm [facility] Neutrophil pct 53.3 % [facility] Comment: Interpretive Data Percent cell count reference ranges are not reported, since discordance with absolute values may lead to misinterpretation of CBC data. Current Interpretive Data was last revised on 2018. Imm gran pct 0.2 % [facility] Comment: Interpretive Data Percent cell count reference ranges are not reported, since discordance with absolute values may lead to misinterpretation of CBC data. Current Interpretive Data was last revised on 2018. Lymphocyte pct 37.6 % [facility] Comment: Interpretive Data Percent cell count reference ranges are not reported, since discordance with absolute values may lead to misinterpretation of CBC data. Current Interpretive Data was last revised on 2018. Monocyte pct 6.8 % [facility] Comment: Interpretive Data Percent cell count reference ranges are not reported, since discordance with absolute values may lead to misinterpretation of CBC data. Current Interpretive Data was last revised on 2018. Eosinophil pct 1.6 % [facility] Comment: Interpretive Data Percent cell count reference ranges are not reported, since discordance with absolute values may lead to misinterpretation of CBC data. Current Interpretive Data was last revised on 2018. Basophil pct 0.5 % [facility] Comment: Interpretive Data Percent cell count reference ranges are not reported, since discordance with absolute values may lead to misinterpretation of CBC data. Current Interpretive Data was last revised on 2018. Blood 02/05/2025 4:17 PM CDT 02/05/2025 9:35 PM CDT Artimplant AB SHRINKER LAB BLOOD ORDERABLES Final Re sult Performing Organization Address [facility] Co de Phone Number ASHLEY [phone] [place] [address] * Thyroid Function [place] (02/05/2025 4:17 PM CDT) TSH 1.85 0.30 - 4.20 mcIUnit/mL Blood 02/05/2025 4:17 PM CDT 02/05/2025 9:35 PM CDT Artimplant AB SHRINKER LAB BLOOD ORDERABLES Final Re sult Performing Organization Address [facility] Co de Phone Number [facility] [address] [place] [address] * (ABNORMAL) Iron profile w/ IBC (02/05/2025 4:17 PM CDT) Iron 56 35 - 145 mcg/dl TIBC 313 250 - 400 mcg/dL [facility] Transferrin saturation 18(L) 20 - 50 % [facility] Blood 02/05/2025 4:17 PM CDT 02/05/2025 9:35 PM CDT Maya Uriostegui SHRINKER LAB BLOOD ORDERABLES Final Re sult ASHLEY [address] [place] [address] * (ABNORMAL) CBC with auto differential (02/05/2025 4:17 PM CDT) Pathologist [facility] WBC 6.14 3.80 - 9.90 K/cumm Hgb 13.2 11.9 - 15.5 g/dL [facility] Hct 41.1 35.6 - 45.5 % [facility] Plt 247 150 - 400 K/cumm [facility] MPV 10.5 9.1 - 12.3 fL [facility] RBC 4.57 3.90 - 5.20 M/cumm [facility] MCV 89.9 81.3 - 96.4 fL [facility] MCH 28.9 27.1 - 33.3 pg [facility] MCHC 32.1(L) 32.3 - 35.7 g/dL [facility] CH RDW CV 12.6 11.1 - 14.9 % [facility] RDW SD 41.4 35.7 - 48.1 fL [facility] NRBC abs 0.00 0.00 - 0.01 K/cumm [facility] Blood 02/05/2025 4:17 PM CDT 02/05/2025 9:35 PM CDT Maya Uriostegui SHRINKER LAB BLOOD ORDERABLES Final Re sult ASHLEY [address] [place] [address] * Vitamin D 25 hydroxy (02/05/2025 4:17 PM CDT) Pathologist [facility] Vitamin D 25-OH 37 30 - 80 ng/mL Blood 02/05/2025 4:17 PM CDT 02/05/2025 9:35 PM CDT us Maya Therien SHRINKER LAB BLOOD ORDERABLES Final Re sult Performing Organization Address [facility]/ZIP Co de Phone Number ASHLEY AMEZCUA [id number] [facility] [place] [address] * Folate (02/05/2025 4:17 PM CDT) Folic acid >20.0 >=5.0 ng/mL Comment:Hemolysis present. R esults may be affected. Blood 02/05/2025 4:17 PM CDT 02/05/2025 9:35 PM CDT us Maya Therien SHRINKER LAB BLOOD ORDERABLES Final Re sult Performing Organization Address [facility] Co de Phone Number ASHLEY AMEZCUA [address] [facility] [place] [address] * Ferritin (02/05/2025 4:17 PM CDT) Ferritin 39 15 - 150 ng/mL Blood 02/05/2025 4:17 PM CDT 02/05/2025 9:35 PM CDT us Maya Therien SHRINKER LAB BLOOD ORDERABLES Final Re sult Performing Organization Address [facility] Co de Phone Number [place] AMEZCUA [address] [facility] [place] [address] * Vitamin B12 (02/05/2025 4:17 PM CDT) Vitamin B12 637 230 - 1,250 pg/mL Blood 02/05/2025 4:17 PM CDT 02/05/2025 9:35 PM CDT us Maya Therien SHRINKER LAB BLOOD ORDERABLES Final Re sult Performing Organization Address City/[facility]/ZIP Co de Phone Number ASHLEY AMEZCUA [phone] [facility] [place] [address] * Lipid panel (02/05/2025 4:17 PM CDT) Cholesterol 179 30 - 199 mg/dL Comment: Interpretive Data Ages < or = 19 years Acceptable: <170 mg/dL Borderline high: 170-199 mg/dL High: >or= 200 mg/dL Ages > or = 20 years Desirable: <200 mg/dL Borderline high: 200-239 mg/dL High: >or= 240 mg/dL Literature References: 1. Expert Panel on Integrated Guidelines for Cardiovascular Health and Risk Reduction in Children and Adolescents. Pediatrics 2011;128:S213 2. NCEP Expert Panel. Circulation 2004;110:227 Current Interpretive Data was last revised on 2018. Triglycerides 105 <=149 mg/dL ASHLEY AMEZCUA Comment: Interpretive Data Ages < or = 9 years Acceptable: <75 mg/dL Borderline high: 75-99 mg/dL High: >or= 100 mg/dL Ages 10 to 20 years Acceptable: <90 mg/dL Borderline high: 90-129 mg/dL High: >or= 130 mg/dL Ages > or = 20 years Desirable: <150 mg/dL Borderline high: 150-199 mg/dL High: 200-499 mg/dL Very high: >or= 499 mg/dL Literature References: 1. Expert Panel on Integrated Guidelines for Cardiovascular Health and Risk Reduction in Children and Adolescents. Pediatrics 2011;128:S213 2. NCEP Expert Panel. Circulation 2004;110:227 Current Interpretive Data was last revised on 2018. HDL 46 >=40 mg/dL ASHLEY AMEZCUA Comment: Interpretive Data Ages < or = 19 years Acceptable: >45 mg/dL Borderline low: 40-45 mg/dL Low: <40 mg/dL Ages > or = 20 years Desirable: >or= 60 mg/dL Low: <40 mg/dL Literature References: 1. Expert Panel on Integrated Guidelines for Cardiovascular Health and Risk Reduction in Children and Adolescents. Pediatrics 2011;128:S213 2. NCEP Expert Panel. Circulation 2004;110:227 Current Interpretive Data was last revised on 2018. LDL, calculated 114 <=129 mg/dL ASHLEY AMEZCUA Comment: Interpretive Data Ages < or = 19 years Acceptable: <110 mg/dL Borderline high: 110-129 mg/dL High: >or= 130 mg/dL Ages > or = 20 years Optimal: <100 mg/dL Near optimal: 100-129 mg/dL Borderline high: 130-159 mg/dL High: >160 mg/dL Calculated using the Miguel LDL-C estimating equation. This equation was implemented on 2024. Prior to this date LDL-C was estimated using the Friedewald equation. Literature References: 1. Expert Panel on Integrated Guidelines for Cardiovascular Health and Risk Reduction in Children and Adolescents. Pediatrics 2011;128:S213 2. NCEP Expert Panel. Circulation 2004;110:227 3. Miguel Ragland et al. RAMON Cardiol. 2020 February 08;5(5):540-548. doi: 10.1001/jamacardio.2020.0013 Current Interpretive Data was last revised on 2024. Non-HDL Cholesterol 133 mg/dL ASHLEY AMEZCUA Comment: Interpretive Data Ages < or = 19 years Acceptable: <120 mg/dL Borderline high: 120-144 mg/dL High: >145 mg/dL Ages > or = 20 years When triglycerides are >200 mg/dL, Non-HDL cholesterol is a secondary target of therapy with treatment goals that are 30 mg/dL greater than the LDL cholesterol target. Literature References: 1. Expert Panel on Integrated Guidelines for Cardiovascular Health and Risk Reduction in Children and Adolescents. Pediatrics 2011;128:S213 2. NCEP Expert Panel. Circulation 2004;110:227 Current Interpretive Data was last revised on 2018. Chol/HDL ratio 4 [facility] Blood 02/05/2025 4:17 PM CDT 02/05/2025 9:35 PM CDT us Maya Uriostegui NP LAB BLOOD ORDERABLES Final Re sult ASHLEY AMEZCUA [address] Department [place] [address] * (ABNORMAL) Comprehensive metabolic panel (02/05/2025 4:17 PM CDT) Sodium 141 135 - 145 mmol/L Potassium, pl 4.4 3.3 - 4.9 mmol/L [facility] Chloride 103 97 - 110 mmol/L [facility] CO2 26 22 - 32 mmol/L [facility] Anion gap 12 2 - 15 mmol/L [facility] BUN 15 6 - 25 mg/dL [facility] Creatinine 0.58(L) 0.60 - 1.10 mg/dL [facility] Glucose 89 70 - 199 mg/dL [facility] Comment: Interpretive Data Fasting glucose >/= 126 mg/dl is diagnostic for diabetes. Fasting is defined as no caloric intake for at least 8 hours. Fasting glucose between 100 mg/dl to 125 mg/dl is diagnostic of prediabetes. In a patient with classic symptoms of hyperglycemia or hyperglycemic crisis, a random glucose >/= 200 mg/dl is diagnostic for diabetes. In the absence of unequivocal hyperglycemia, results should be confirmed by repeat testing. The classification and Diagnosis of Diabetes Diabetes Care 2021; 46: S19-S40. Current interpretive data was last revised 2022. Calcium 10.0 8.5 - 10.3 mg/dL [facility] Bilirubin, total 0.2 0.1 - 1.2 mg/dL [facility] Protein, pl 7.9 6.5 - 8.5 g/dL [facility] Albumin 4.7 3.5 - 5.0 g/dL [facility] Alk phos 112 40 - 130 Units/L [facility] ALT 50(H) 7 - 45 Units/L [facility] AST 33 10 - 45 Units/L [facility] Blood 02/05/2025 4:17 PM CDT 02/05/2025 9:35 PM CDT Maya Uriostegui SHRINKER LAB BLOOD ORDERABLES Final Re sult ASHLEY [address] Department [place] [address] * Throat culture Throat (12/21/2024 10:19 AM CDT) Report Final Report: No growth of pathogens. Comment:Testing performed by : [facility], [address] [place]., [address] Throat 12/21/2024 10:1 9 AM CDT 12/21/2024 10:56 PM CDT Narrative ASHLEY - 12/22/2024 10:04 PM CDT Testing performed by [facility] Microbiology Laboratory ([phone]). Result [facility] Sapphire Laws NP LAB MICROBIOLOGY - GENERAL ORD ERABLES Final Result [facility] [address] Department [place] [address] * POCT rapid strep A (12/21/2024 9:51 AM CDT) [facility] Rapid Strep A, POC Negative Negative Swab 12/21/2024 9:51 AM CDT Result [facility] Sapphire Laws SHRINKER POINT OF CARE TEST ORDERABLES Final Result * N. gonorrhoeae/C. trachomatis Amplification Urine (08/24/2024 1:38 PM CAR COOPER) [facility] C. trachomatis Not Detected [facility] N. gonorrhoeae Not Detected [facility] Comment: Interpretive Data This assay detects Chlamydia trachomatis and Neisseria gonorrhoeae by nucleic acid amplification testing (NAAT). This assay has been cleared by the [place] Food and Drug administration. The performance characteristics of this test have been verified by the [facility] Molecular Infectious Disease laboratory. The performance characteristics of this test have not been evaluated in individuals less than 14 years of age. Current Interpretive Data was last revised on 2023. Urine (None) 08/24/2024 1:38 PM CAR COOPER 08/24/2024 2:19 PM CAR COOPER Result [facility] Renita Chong NP LAB MICROBIOLOGY - GENERAL ORDERABLES Final Result ASHLEY [facility] Department [place] [address] [facility] * Hepatitis C antibody Blood (07/31/2024 10:20 AM CDT) Hep C Ab Nonreactive Nonreactive Comment:Antibodies to HCV no t detected. Does NOT exclude the possibility of recent exposure to HCV. Current interpretive data was last revised on 22 Blood 07/31/2024 10:2 0 AM CDT 07/31/2024 11:35 AM CDT Renita Chong NP LAB MICROBIOLOGY - GENERAL ORDERABLES Final Result ASHLEY THOMAS [facility] Department [place] [address] * Pap with reflex to High Risk HPV (03/19/2023 11:54 AM CDT) Pathologist [facility] CLINICAL INFORMATION: Sis Arana Comment:Routine exam LMP Sis Arana Comment:[id number] Previous Pap Sis Arana Comment:NONE GIVEN Prev. Bx Sis Arana Comment:CE SOURCE: Sis Arana Comment:Cervix, Endocervix Pap, specimen adequacy Sis Arana Comment: Satisfactory for evaluation. Endocervical/transformation zone component present. HPV interp Sis Arana Comment:Negative for intraep ithelial lesion or malignancy. COMMENTS Sis Arana Comment: This Pap test has been evaluated with computer assisted technology. Registration Representative Rui Guzman Comment: JAF, CT(ASCP) CT Screening Location: [place] [address] [place] [address] Review video editor Sis Arana Comment: DDS, CT(ASCP) CT screening location: [place] [address] [place] [address] Comment Sis Arana Comment: EXPLANATORY NOTE: The Pap is a screening test for cervical cancer. It is not a diagnostic test and is subject to false negative and false positive results. It is most reliable when a satisfactory sample, regularly obtained, is submitted with relevant clinical findings and history, and when the Pap result is evaluated along with historic and current clinical information. Thin prep 03/19/2023 11:5 4 AM CDT 03/22/2023 6:46 AM CDT us Annabella Peralta NP LAB CYTOLOGY ORDERABLES Final Re sult [facility] Organization Address City/State/ZIP Co de Phone Number [facility] [address] [place] [address] from Last 3 Months or Most Recently Relevant to Health Maintenance Insurance [facility] [employer] [facility] HMO/PPO Address: [facility] [address] [place] [address] [facility] Advance Directives For more information, please contact: [phone] * Full Code (Latest Code Status on File) Date Activated Date Inactivated Comments 09/24/2024 2:46 AM 09/26/2024 7:22 PM * Full Code Date Activated Date Inactivated Comments 09/23/2024 11:02 AM 09/24/2024 2:46 AM Full CPR in case of cardiopulmonary arrest Care Teams Manager Financial Reporting Relationship Specialty Start Date End Date Maya Uriostegui NP [address] [facility] [address] [place] [address] PCP - General Internal Medicine 02/05/25
--- OUTSIDE RECORDS SUMMARY | 2025-02-09 00:34 | XMS_ITS | Encounter Summary ---
Author Organization [facility] Address [address] [place] [address] Care Team Providers Care Retail Agent Name Role Phone Hilda Del Rio MD Primary Care Provider Encounter Details Date Type Department Care Team (Late st Contact Info) Description 05/02/2007 Outpatient Historical [facility] [place] [address] [address] Gomez Car MD [address] [place] [id number] Social History Tobacco Use Types Packs/Day Years Used Date Smoking Tobacco: Never Assessed Comments Unknown Sex and Gender Information Value Date Recorded Sex Assigned at Not on file Legal Sex Female 4:12 AM [employer] Gender Identity Not on file Sexual Orientation Not on file documented as of this encounter Plan of Treatment Not on file documented as of this encounter Visit Diagnoses Not on filedocumented in this encounter Care Teams Retail Agent Relationship Specialty Start Date End Date Hilda Del Rio MD PCP - General Pediatrics 09/17/13 documented as of this encounter
--- OUTSIDE RECORDS SUMMARY | 2025-02-09 00:34 | XMS_ITS | Referral Summary ---
Author Organization [facility] ospital Address [address] [place] [address] Care Team Providers Care [employer] Name Role Phone Maya Uriostegui NP Primary Care Provider [phone] Encounters Date Type Department Care Team Description 02/08/[address] [address] 02/05/2025 4:17 PM CDT - 02/05/2025 11:59 PM CDT Hospital Encounter [address] [address] Wellness examination; Dizziness; Near syncope; Screening, lipid Discharge Disposition: Discharge to home or self care 02/05/2025 4:15 PM CDT Lab [facility] Outpatient Lab at [address] [address] Wellness examination (Primary Dx) 02/05/2025 Encounter [address] [address] [place] [address] 02/05/2025 3:30 PM CDT Office Visit [facility] Primary Care at [address] [address] Maya Uriostegui NP BMI 20.0-20.9, adult (Primary Dx); Wellness examination; Dizziness; Near syncope; Screening, lipid; Anxiety 01/26/2025 Encounter [address] [address] [place] [address] 01/20/2025 Encounter [address] [address] [place] [address] 01/09/2025 Encounter [address] [address] [place] [address] 12/31/2024 Encounter [address] [address] [place] [address] 12/23/2024 Encounter [address] [address] [place] [address] 12/23/2024 Results Follow-Up [facility] Convenient Care at [address] [place] [address] Eloisa Carr NP 12/21/2024 10:19 AM CDT - 12/21/2024 11:59 PM CDT Hospital Encounter [address] [address] Sore throat Discharge Disposition: Discharge to home or self care 12/21/2024 9:00 AM CDT Office Visit [facility] Convenient Care at [address] [address] [place] [address] Sapphire Laws NP Allergic rhinitis, unspecified seasonality, unspecified trigger (Primary Dx); Sore throat 12/17/2024 Encounter [address] [address] [place] [address] 12/10/2024 Encounter [address] [address] [place] [address] 12/05/2024 Encounter [address] [address] [place] [address] 11/26/2024 Encounter [address] [address] [place] [address] 11/14/2024 Encounter [address] [address] [place] [address] from Last 3 Months Allergies Active Allergy Reactions Criticality Noted Date Comments Amoxicillin Rash Medium 12/21/2024 Azithromycin Hives Medium 08/11/2023 Clindamycin Rash,Hives Medium 12/13/2018 Doxycycline Hives Medium 11/08/2022 Penicillins Hives,Rash Medium 11/08/2022 Reaction: RASH as child Has tolerated cephalosporins Medications vit no.124/iron/fol ic ( VITAMIN ORAL) Take 1 capsule by mouth daily 02/09/20 Active acetaminophen 500 mg capsuleIndicati ons:Pain Take [...] within 12 hours or as directed by . 10 patch 09/26/20 24 025 Discontin ued(Thera [...] daily 18.2 mL 12/22/19 25 025 Discontin ued(Jaydon drummond completed ) Active Problems Problem Noted Date [...] 05/12/2023 Assessment & Plan (09/10/2023 10:29 AM TRUCK SUPERVISOR): Discussed nature of ovarian cyst. Patient aware to help manage/decrease occurrence of ovarian cyst a low-dose oral combined contraceptive pill is often therapeutic. Patient does not desire to be on a form of hormonal control at this time. Can use [id number] NSAIDs for pain relief if needed. Assessment [...] carried 03/05 in house: R1 (first call) [phone] R1 alt (second call) [phone] R4 (Chief) [phone] Poor growth affecting management of mother in second trimester 07/31/2024 11/07/2024 Overview (09/11/2024): EFW 9%, AC 7%, PI diamante S/p counseling 08/14/2024 PI elevated- >99% 08/22/2024 PI 91% 09/11/2024 EFW 4%, AC 3%, PI >99% Plan: Continue q3 week growth US Weekly dopplers with BPP Weekly NSTs Delivery currently scheduled for 37w [facility] precautions reviewed Assessment & Plan (09/04/2024 10:19 AM TRUCK SUPERVISOR): PI diamante, BPP 05/18, [facility] precautions reviewed Assessment & Plan (07/31/2024 11:48 AM CDT): Reviewed increased risk of stillbirth with FGR and importance of weekly dopplers and 2x/weekly testing. FK precautions reviewed. Maternal varicella, non-immune 06/14/2024 11/07/2024 Overview (06/14/2024): For Varivax pp Supervision of high-risk pre gnancy, unspecified trimester 05/17/2024 11/07/2024 Overview (09/21/2024): [x] Full [facility] Care; [x] Blue Team Referring Provider: Danielito [...] 2/2 elevated dopplers [x] Place of delivery: [facility] [x] Epidural: likely desires but has questions- anesthesia consult placed [x] Blood Products: willing to accept [x] MOC: s/p counseling and pt declines and plans for condoms [x] Method of feeding: breast [x] Childcare Provider: discussed, handouts previously provided [x] PP Depression Discussed: Assessment & Plan (09/11/2024 11:20 AM TRUCK SUPERVISOR): Discussed that the plan could change at [...] weeks [x] 2x/weekly testing 2/2 FGR [x] [facility] consultation [x] IOL [...] mother bring her in for Nexplanon insertion. Immunizations Immunization Administration Dates Next Due DTaP [...] 08/31/2024 Tdap 08/14/2024,06/22/2012 Varicella 09/26/2024(Deferred: Patient Refused),03/01/2007,12/12/2002 Social History Tobacco Use Types Packs/Day Years [...] week 09/25/2024 How often [facility] you attend [facility] services? 1 to 4 times per year 09/25/2024 Do you belong to any clubs o r organizations such as faith groups, unions, fraternal or athletic groups, or [...] things needed for daily living? No 09/25/2024 Alexandria Depression Scale Answer Date Recorded [place] Depression Scale Total 11 11/07/2024 The thought [...] any time in the past 12 m [facility], were you homeless or living in a m[facility] (including now)? No 09/25/2024 Personal Safety Answer Date Recorded Have you ever been in or are you currently in a harmful physical or emotional relationship or is someone making you feel afraid or unsafe? Denies 09/23/2024 Comments No Sex and Gender Information Value Date Recorded Sex Assigned at Not on file Legal Sex Female 11:28 PM TRUCK SUPERVISOR Gender Identity Not on file Sexual Orientation [...] 02/05/2025 3:38 PM CDT Plan of Treatment Not on file Medical Devices Implanted Type Area Cardiovascular Surgeon Device Identifier Shelf Expiration Date Model / [...] GONORRHOEAE/C. TRACHOMATIS AMPLIFICATION Routine 08/24/2024 1:38 PM TRUCK SUPERVISOR Supervision of high-risk , unspecified trimester HEPATITIS [...] 4:17 PM CDT 02/05/2025 10:13 PM CDT us Maya Uriostegui NP LAB BLOOD ORDERABLES Final Re sult [facility] [address] Department [place] [address] * Differential, auto (02/05/2025 4:17 PM CDT) Neutrophil abs 3.27 1.50 - 6.50 K/cumm Imm gran abs 0.01 0.00 - 0.10 K/cumm [facility] Lymphocyte abs 2.31 0.80 - 3.30 K/cumm [facility] Monocyte abs 0.42 0.20 - 0.80 K/cumm [facility] Eosinophil abs 0.10 0.00 - 0.50 K/cumm [facility] Basophil abs 0.03 0.00 - 0.10 K/cumm [facility] Neutrophil pct 53.3 % [facility] Comment: Interpretive Data Percent cell count reference ranges are not reported, since discordance with absolute values may lead to misinterpretation of CBC data. Current Interpretive Data was last revised on 2018. Imm gran pct 0.2 % [facility] Comment: Interpretive Data Percent cell count reference ranges are not reported, since discordance with absolute values may lead to misinterpretation of CBC data. Current Interpretive Data was last revised on 2018. Lymphocyte pct 37.6 % [facility] Comment: Interpretive Data Percent cell count reference ranges are not reported, since discordance with absolute values may lead to misinterpretation of CBC data. Current Interpretive Data was last revised on 2018. Monocyte pct 6.8 % [facility] Comment: Interpretive Data Percent cell count reference ranges are not reported, since discordance with absolute values may lead to misinterpretation of CBC data. Current Interpretive Data was last revised on 2018. Eosinophil pct 1.6 % [facility] Comment: Interpretive Data Percent cell count reference ranges are not reported, since discordance with absolute values may lead to misinterpretation of CBC data. Current Interpretive Data was last revised on 2018. Basophil pct 0.5 % [facility] Comment: Interpretive Data Percent cell count reference ranges are not reported, since discordance with absolute values may lead to misinterpretation of CBC data. Current Interpretive Data was last revised on 2018. Blood 02/05/2025 4:17 PM CDT 02/05/2025 9:35 PM CDT Maya Uriostegui GEOTHERMAL INSTALLER LAB BLOOD ORDERABLES Final Re sult Performing Organization Address City/[facility]/ZIP Co de Phone Number ASHLEY [address] [place] [address] * Thyroid Function Lyman (02/05/2025 4:17 PM CDT) TSH 1.85 0.30 - 4.20 mcIUnit/mL Blood 02/05/2025 4:17 PM CDT 02/05/2025 9:35 PM CDT Maya Uriostegui GEOTHERMAL INSTALLER LAB BLOOD ORDERABLES Final Re sult Performing Organization Address [facility]/ZIP Co de Phone Number ASHLEY [address] Department [place] [address] * (ABNORMAL) Iron profile w/ IBC (02/05/2025 4:17 PM CDT) Iron 56 35 - 145 mcg/dl TIBC 313 250 - 400 mcg/dL [facility] Transferrin saturation 18(L) 20 - 50 % [facility] Blood 02/05/2025 4:17 PM CDT 02/05/2025 9:35 PM CDT Maya Uriostegui GEOTHERMAL INSTALLER LAB BLOOD ORDERABLES Final Re sult Performing Organization Address City/[facility]/ZIP Co de Phone Number ASHLEY AMEZCUA [address] [facility] [place] [address] * (ABNORMAL) CBC with auto differential (02/05/2025 4:17 PM CDT) WBC 6.14 3.80 - 9.90 K/cumm Hgb 13.2 11.9 - 15.5 g/dL [facility] Hct 41.1 35.6 - 45.5 % [facility] Plt 247 150 - 400 K/cumm [facility] MPV 10.5 9.1 - 12.3 fL [facility] RBC 4.57 3.90 - 5.20 M/cumm [facility] MCV 89.9 81.3 - 96.4 fL [facility] MCH 28.9 27.1 - 33.3 pg [facility] MCHC 32.1(L) 32.3 - 35.7 g/dL [facility] CH RDW CV 12.6 11.1 - 14.9 % [facility] CH RDW SD 41.4 35.7 - 48.1 fL [facility] NRBC abs 0.00 0.00 - 0.01 K/cumm [facility] Blood 02/05/2025 4:17 PM CDT 02/05/2025 9:35 PM CDT Maya Uriostegui GEOTHERMAL INSTALLER LAB BLOOD ORDERABLES Final Re sult Performing Organization Address [facility]/ZIP Co de Phone Number ASHLEY AMEZCUA [address] [facility] [place], [place] [phone] * Vitamin D 25 hydroxy (02/05/2025 4:17 PM CDT) Pathologist [facility] Vitamin D 25-OH 37 30 - 80 ng/mL Blood 02/05/2025 4:17 PM CDT 02/05/2025 9:35 PM CDT Maya Uriostegui GEOTHERMAL INSTALLER LAB BLOOD ORDERABLES Final Re sult Performing Organization Address City/[facility]/ZIP Co de Phone Number ASHLEY AMEZCUA [address] [facility] [place] [address] * Folate (02/05/2025 4:17 PM CDT) Pathologist [facility] Folic acid >20.0 >=5.0 ng/mL Comment:Hemolysis present. R esults may be affected. Blood 02/05/2025 4:17 PM CDT 02/05/2025 9:35 PM CDT Maya Uriostegui GEOTHERMAL INSTALLER LAB BLOOD ORDERABLES Final Re sult Performing Organization Address [facility] Co de Phone Number ASHLEY AMEZCUA [address] [facility] [place], [place] [phone] * Ferritin (02/05/2025 4:17 PM CDT) Pathologist [facility] Ferritin 39 15 - 150 ng/mL Blood 02/05/2025 4:17 PM CDT 02/05/2025 9:35 PM CDT Maya Uriostegui GEOTHERMAL INSTALLER LAB BLOOD ORDERABLES Final Re sult Performing Organization Address [facility] Co de Phone Number ASHLEY AMEZCUA [address] [place] [address] * Vitamin B12 (02/05/2025 4:17 PM CDT) Pathologist [facility] Vitamin B12 637 230 - 1,250 pg/mL Blood 02/05/2025 4:17 PM CDT 02/05/2025 9:35 PM CDT Maya Therolivia GEOTHERMAL INSTALLER LAB BLOOD ORDERABLES Final Re sult Performing Organization Address [facility] Co de Phone Number ASHLEY AMEZCUA [address] [facility] [place] [address] * Lipid panel (02/05/2025 4:17 PM CDT) [...] on 2018. Triglycerides 105 <=149 mg/dL [facility] Comment: Interpretive Data Ages < or = [...] 2018. LDL, calculated 114 <=129 mg/dL [facility] Comment: Interpretive Data Ages < or = 19 years Acceptable: <110 mg/dL Borderline high: 110-129 mg/dL High: >or= 130 mg/dL Ages > or = 20 years Optimal: <100 mg/dL Near optimal: 100-129 mg/dL Borderline high: 130-159 mg/dL High: >160 mg/dL Calculated using the Rivera LDL-C estimating equation. This equation was implemented on 2024. Prior to this date LDL-C was estimated using the Friedewald equation. Literature References: 1. Expert Panel on Integrated Guidelines for Cardiovascular Health and Risk Reduction in Children and Adolescents. Pediatrics 2011;128:S213 2. NCEP Expert Panel. Circulation 2004;110:227 3. Miguel Ragland et al. RAMON Cardiol. 2019February 08;5(5):540-548. doi: 10.1001/jamacardio.2020.0013 Current Interpretive Data was last revised on 2024. Non-HDL Cholesterol 133 mg/dL [facility] Comment: Interpretive Data Ages < or = [...] LAB BLOOD ORDERABLES Final Re sult ASHLEY [address] Department [place] [address] * (ABNORMAL) Comprehensive metabolic panel (02/05/2025 4:17 [...] 02/05/2025 9:35 PM CDT us Maya Uriostegui GEOTHERMAL INSTALLER LAB BLOOD ORDERABLES Final Re sult [facility] [address] Department of Laboratories [place], [place] [id number] * Throat culture Throat (12/21/2024 10:19 AM CDT) Report Final Report: No growth of pathogens. Comment:Testing performed by : [facility], [address] [place]., [address] Throat 12/21/2024 10:1 9 AM CDT 12/21/2024 10:56 PM CDT Narrative CERNER CH - 12/22/2024 10:04 PM CDT Testing performed by [facility] Microbiology Laboratory ([phone]). Sapphire Laws NP LAB MICROBIOLOGY - GENERAL ORD ERABLES Final Result ASHLEY AMEZCUA [address] Department [place] [address] * POCT rapid strep A (12/21/2024 9:51 AM CDT) [facility] Rapid Strep A, POC Negative Negative Swab 12/21/2024 9:51 AM CDT Sapphire Laws GEOTHERMAL INSTALLER POINT OF CARE TEST ORDERABLES Final Result * N. gonorrhoeae/C. trachomatis Amplification Urine (08/24/2024 1:38 PM TRUCK SUPERVISOR) [facility] C. trachomatis Not Detected [facility] N. gonorrhoeae Not Detected ASHLEY [facility] Comment: Interpretive Data This assay detects Chlamydia trachomatis and Neisseria gonorrhoeae by nucleic acid amplification testing (NAAT). This assay has been cleared by the [place] Food and Drug administration. The performance characteristics of this test have been verified by the [facility] Molecular Infectious Disease laboratory. The performance characteristics of this test have not been evaluated in individuals less than 14 years of age. Current Interpretive Data was last revised on 2023. Urine (None) 08/24/2024 1:38 PM TRUCK SUPERVISOR 08/24/2024 2:19 PM TRUCK SUPERVISOR Renita Chong NP LAB MICROBIOLOGY - GENERAL ORDERABLES Final Result ASHLEY THOMAS [address] [facility] Department [place] [address] [facility] * Hepatitis C antibody Blood (07/31/2024 10:20 AM CDT) [facility] Hep C Ab Nonreactive Nonreactive Comment:Antibodies to HCV no t detected. Does NOT exclude the possibility of recent exposure to HCV. Current interpretive data was last revised on 22 Blood 07/31/2024 10:2 0 AM CDT 07/31/2024 11:35 AM CDT us Renita Chong GEOTHERMAL INSTALLER LAB MICROBIOLOGY - GENERAL ORDERABLES Final Result Performing Organization Address [facility] Co de Phone Number ASHLEY [facility] Department of Laboratories [place] [phone] * Pap with reflex to High Risk HPV (03/19/2023 11:54 AM CDT) CLINICAL INFORMATION: Sis Arana Comment:Routine exam LMP Sis Arana Comment:[phone] Previous Pap Sis Arana Comment:NONE GIVEN Prev. Bx Sis Arana Comment:CE SOURCE: Sis Arana Comment:Cervix, Endocervix Pap, specimen adequacy Sis Arana Comment: Satisfactory for evaluation. Endocervical/transformation zone component present. HPV interp Sis Arana Comment:Negative for intraep ithelial lesion or malignancy. COMMENTS Sis Arana Comment: This Pap test has been evaluated with computer assisted technology. Energy Efficiency Specialist Rui Guzman Comment: JAF, CT(ASCP) CT Screening Location: [place] [address] [place] [address] Review timber inspector Sis Arana Comment: DDS, CT(ASCP) CT screening location: [place] [address] [place] [address] Comment Sis Arana Comment: EXPLANATORY NOTE: The [...] 03/22/2023 6:46 AM CDT us Annabella Peralta GEOTHERMAL INSTALLER LAB CYTOLOGY ORDERABLES Final Re sult Performing Organization Address City/[facility]/ZIP Co de Phone Number [facility] [address] [place] [address] from Last 3 Months or Most Recently Relevant to Health Maintenance Insurance [employer] Advance Directives For more information, please contact: [phone] * Full Code (Latest Code Status on File) Date Activated Date Inactivated Comments 09/24/2024 2:46 AM 09/26/2024 7:22 PM * Full Code Date Activated Date Inactivated Comments 09/23/2024 11:02 AM 09/24/2024 2:46 AM Full CPR in case of cardiopulmonary arrest Care Teams [employer] Relationship Specialty Start Date End Date aMya Uriostegui NP [address] [facility] [address] [place] [address] PCP - General Internal Medicine 02/05/25
--- NOTE | 2025-02-09 07:19 | PM.IMHP ---
H&P: HPI History of Present Illness Date/Time: 02/09/25 07:19 Chief Complaint: chronic tonsillitis [facility] Past Medical History Medical History (Updated 01/08/25 @ 14:19 by Phoenix Bradford MD) Allergic rhinitis Chronic dysfunction of both eustachian tubes Cryptic tonsil Chronic tonsillitis Ovarian cyst Encounter for Depo-Provera contraception Surgical History Surgical History History of wisdom tooth extraction No pertinent past surgical history Family History Family History Mother Anxiety Thyroid disorder Grandparent Lung cancer Hypertension Heart disease Cerebrovascular accident Thyroid disorder Social History Social History (Updated 01/08/25 @ 13:41 by Judy Botello) Social History: Caffeine- coffee Smoking status: Never smoker Alcohol intake: never Substance use: never Substance use type: does not use Do You Feel Safe in your Home?: Yes Lack of Transportation: No Lack of Food: Never True Current Housing: I Have Housing Concerned About Future Housing: No Difficulty Paying Gas/Electric Bills: No Difficulty Paying for Meds: No Currently Unemployed: No Education: Associate Degree Difficulty w/ Childcare or Family Care: No Living arrangements: other Additional living arrangements comments: partner Occupation/Education: occupation Additional occupation/education comments: [employer] Gender identity (if verbalized by the patient): Female Sexual Orientation (if Verbalized by the Patient): Straight or Heterosexual Meds Home Medications and Allergies Home Medications ?Medication ?Instructions ?Recorded ?Confirmed ?Type azelastine 137 mcg (0.1 %) nasal 1 spray intranasal Q12H 3 months 01/08/25 02/02/25 Rx spray #30 mL vit no.95-ferrous 1 tablet PO DAILY 02/02/25 02/02/25 History fumarate 28 mg-folic acid 800 mcg tablet () Allergies Allergy/AdvReac Type Severity Reaction Status Date / Time azithromycin Allergy Severe Hives Verified 02/02/25 15:34 clindamycin Allergy Mild Rash Verified 02/02/25 15:34 doxycycline Allergy Mild rash Verified 02/02/25 15:34 Penicillins Allergy Mild unknown Verified 02/02/25 15:34 Assessment and Plan Assessment and plan (1) Chronic tonsillitis: Code(s): J35.01 - Chronic tonsillitis Status: Acute (2) Cryptic tonsil: Code(s): J35.8 - Other chronic diseases of tonsils and adenoids Status: Acute Plan 24-year-old female with chronic tonsillitis, recurrent tonsil stones, and the Eustachian tube dysfunction bilaterally Bilateral chronically inflamed tonsils with cryptic tonsils. Hypertrophied nasal turbinates. [place] centralized - azelastine nasal spray was sent to pharmacy for 3 months - a thorough discussion with the patient including benefits ,alternatives and risks of tonsillectomy -Risks for tonsillectomy were discussed including but not limited to bleeding infection, injury to teeth, gums, lips and/or tongue. TMJ problems. Delayed bleeding that may require further surgery. All the questions were answered to the best of my ability and the patient wished to proceed. The procedures will be scheduled in a timely fashion.'
--- NOTE | 2025-02-09 07:20 | WPDHPUPDATE1 ---
History and Physical Update Update Date/Time: 02/09/25 07:20 History and Physical has been reviewed, including an updated exam of the patient. There are NO changes in the patient's condition. Risks, benefits, and alternatives have been discussed and questions answered. Patient agrees to proceed with procedure. 24-year-old female with chronic tonsillitis, recurrent tonsil stones, and the Eustachian tube dysfunction bilaterally Bilateral chronically inflamed tonsils with cryptic tonsils. Hypertrophied nasal turbinates. [place] centralized - azelastine nasal spray was sent to pharmacy for 3 months - a thorough discussion with the patient including benefits ,alternatives and risks of tonsillectomy -Risks for tonsillectomy were discussed including but not limited to bleeding infection, injury to teeth, gums, lips and/or tongue. TMJ problems. Delayed bleeding that may require further surgery. All the questions were answered to the best of my ability and the patient wished to proceed. The procedures will be scheduled in a timely fashion.
[2025-02-09] MEDS: LACTATED RINGERS 1,000 ML 30 ML IV CONT (11:00)
--- NOTE | 2025-02-09 11:03 | P.PNAN_ITS ---
Anes - Initial Pre Proc Eval Procedure: Operation Date: 02/09/25 11:45 Proposed Procedures p Tonsillectomy - Phoenix Bradford MD Date/Time: 02/09/25 11:03 Surgeon: Phoenix Bradford MD Pre Op Diagnosis: chronic tonsillitis Patient Data Age: 24 Gender: F Height: 1.57 m Weight: 52.3 kg Allergies Allergy/AdvReac Type Severity Reaction Status Date / Time azithromycin Allergy Severe Hives Verified 02/02/25 15:34 clindamycin Allergy Mild Rash Verified 02/02/25 15:34 doxycycline Allergy Mild rash Verified 02/02/25 15:34 Penicillins Allergy Mild unknown Verified 02/02/25 15:34 Home Medications ?Medication ?Instructions ?Recorded ?Confirmed ?Type azelastine 137 mcg (0.1 %) nasal 1 spray intranasal Q12H 3 months 01/08/25 02/02/25 Rx spray #30 mL vit no.95-ferrous 1 tablet PO DAILY 02/02/25 02/02/25 History fumarate 28 mg-folic acid 800 mcg tablet () Patient hx anesthesia problems: none Family hx anesthesia problems: none Results Review: All pre-operative results and documents have been reviewed as part of the pre- operative evaluation. [facility] Past Medical History Medical History (Updated 01/08/25 @ 14:19 by Phoenix Bradford MD) Allergic rhinitis Chronic dysfunction of both eustachian tubes Cryptic tonsil Chronic tonsillitis Ovarian cyst Encounter for Depo-Provera contraception Surgical History Surgical History History of wisdom tooth extraction No pertinent past surgical history Family History Family History Mother Anxiety Thyroid disorder Grandparent Lung cancer Hypertension Heart disease Cerebrovascular accident Thyroid disorder Social History Social History (Updated 01/08/25 @ 13:41 by Judy Botello) Social History: Caffeine- coffee Smoking status: Never smoker Alcohol intake: never Substance use: never Substance use type: does not use Do You Feel Safe in your Home?: Yes Lack of Transportation: No Lack of Food: Never True Current Housing: I Have Housing Concerned About Future Housing: No Difficulty Paying Gas/Electric Bills: No Difficulty Paying for Meds: No Currently Unemployed: No Education: Associate Degree Difficulty w/ Childcare or Family Care: No Living arrangements: other Additional living arrangements comments: partner Occupation/Education: occupation Additional occupation/education comments: [employer] Gender identity (if verbalized by the patient): Female Sexual Orientation (if Verbalized by the Patient): Straight or Heterosexual Anes - Eval Final PreProcedure Day of Procedure 02/09/25 11:03 Patient weight: normal Heart: regular rate and rhythm Lungs: clear to auscultation Airway: Mallampati scale class II Neurological: alert and oriented Last oral intake: >/= 8 hours ASA classification: I Emergent: no Anesthetic plan: proceed Anesthesia type and monitoring: general ETT and standard monitoring Results Review: All pre-operative results and documents have been reviewed as part of the pre- operative evaluation. Informed Consent: The patient's anesthetic plan and its attendant risks and benefits were discussed with the patient/family/POA. Questions were solicited and answers provided to the satisfaction of the patient/family/POA.
[2025-02-09] MEDS: ACETAMINOPHEN 500 MG TABLET 1000 MG PO (11:15)
[2025-02-09 11:30] LABS: BEDSIDEPREGUCG Negative (Negative)
--- NOTE | 2025-02-09 12:52 | P.OP_ITS ---
Procedure Note - Detailed Date of Procedure 02/09/25 Pre-op Diagnosis chronic tonsillitis Post-op Diagnosis Same Procedure Performed Tonsillectomy Surgeon Phoenix Bradford MD Anesthesia General Indications Chronic tonsillitis-Cryptic tonsils Description of Procedure The patient was seen in the preoperative area, informed consent was checked and confirmed. The patient was taken to the operating room, sedated and placed under general anesthesia with an endotracheal intubation. Eyes were taped and were prepped and draped in the usual sterile fashion. We started with tonsillectomy procedure. McIvor Mouth retractor was then placed, and the patient was suspended. Then, we proceeded with tonsillectomy, starting on the right side. The tonsil was retracted and dissected along its capsule using Bizact tonsillectomy device . Bleeding was controlled with a suction c autery and silk ties . We proceeded to the Left side. The tonsil retracted and dissected along its capsule using a Bizact tonsillectomy device. Bleeding was controlled with a suction cautery and silk ties. Tonsil fossae were examined for 5 minutes without tension removed and there was no bleeding. McIvor Mouth retractor was then removed and red rubber catheter was removed. Estimated Blood Loss 3 (ml) Pathology Yes (right and left tonsills) Complications No immediate complications Condition Stable Disposition PACU [facility] Billing Surgery - Charge Forward: Surgery Billing
[2025-02-09] MEDS: fentaNYL CITRATE INJ (*CRX) 100 MCG/2 ML VIAL 25 MCG IV PUSH (13:05)
[2025-02-09] MEDS: oxyCODONE HCL (*CRX) 5 MG TAB IR PO (13:50)
== END 2025-02-09 14:30 | disposition home or self-care (01) ==
PROVIDERS: PCP Family Medicine; Visit Provider Otolaryngology Otolaryngology/Facial Plastic Surgery
PROC: (CPT 42826; principal; 2025-02-09 11:45)
DX: J35.01 Chronic tonsillitis (principal); J35.8 Other chronic diseases of tonsils and adenoids; A42.89 Other forms of actinomycosis
CPT/HCPCS: 42826; 88304; A9270; J0330; J0690; J1100; J2250; J2405; J2704; J3010; J7120

== ENCOUNTER 2025-02-16 05:21 | Observation (INO) | payer OTHER, SELFPAY ==
[2025-02-16] VITALS (16 sets, daily range): BP systolic 94–123; BP diastolic 62–88; PULSE 68–103; RESP 12–20; TEMP 36.3–37.1; O2SAT 93–100; BMI 18.7
--- OUTSIDE RECORDS SUMMARY | 2025-02-16 05:23 | XMS_ITS | Encounter Summary ---
Author Organization [employer] Address [address] [place] [address] Care Team Providers Care Harvest Worker Field Crop Name Role Phone Hilda Del Rio MD Primary Care Provider [phone] Reason for Visit * Reason Comments Medication Refill Encounter Details Date Type Department Care Team (Late st Contact Info) Description 11/20/2013 Refill [place] [facility] [place] [id number] [facility] [place] [address] Saundra Suarez MD [address] [place] [address] [address] [place] [address] Social History Tobacco Use Types Packs/Day Years Used Date Smoking Tobacco: Never Smokeless Tobacco: Never Alcohol Use Standard Drinks/Week Comments No 0 (1 standard drink = 0.6 oz pur e alcohol) Comments No Sex and Gender Information Value Date Recorded Sex Assigned at Not on file Legal Sex Female 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
--- OUTSIDE RECORDS SUMMARY | 2025-02-16 05:23 | XMS_ITS | Encounter Summary ---
Author Organization [facility] Healthcare Address [address] [place] [address] Care Team Providers Care Verification Specialist Name Role Phone No, Physician Primary Care Provider [phone] Maya Uriostegui NP Primary Care Provider [phone] Encounter Details Date Type Department Care Team (Late st Contact Info) Description 12/23/2024 Results Follow-Up [facility] [place] [address] [place] [id number] Eloisa Carr, ROGER [address] [facility] [address] [place] [address] Social History Tobacco Use Types [...] often do you attend chur ch or synagogue services? 1 to 4 times per year 09/25/2024 Do you belong to any clubs o r organizations such as spiritism groups, unions, fraternal or athletic groups, or [...] things needed for daily living? No 09/25/2024 Randolph Depression Scale Answer Date Recorded Randolph Depression Scale Total 11 11/07/2024 The thought [...] any time in the past 12 m [facility], were you homeless or living in a detention (including now)? No 09/25/2024 Personal Safety Answer Date Recorded Have you ever been in or are you currently in a harmful physical or emotional relationship or is someone making you feel afraid or unsafe? 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
--- OUTSIDE RECORDS SUMMARY | 2025-02-16 05:23 | XMS_ITS | Encounter Summary ---
Author Organization [facility] Address [address] [place] [address] Care Team Providers Care Fence Erector Name Role Phone Hilda Del Rio MD Primary Care Provider [phone] Encounter Details Date Type Department Care Team (Late st Contact Info) Description 05/02/2007 Outpatient Historical [facility] Heart [place] [address] [address] Gomez Car MD 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
--- OUTSIDE RECORDS SUMMARY | 2025-02-16 05:23 | XMS_ITS | Encounter Summary ---
Author Organization [facility] Address [address] [place] [address] Care Team Providers Care Dethistler Operator Name Role Phone Hilda Del Rio MD Primary Care Provider [phone] Encounter Details Date Type Department Care Team (Late st Contact Info) Description 06/03/2007 Outpatient Historical [facility] Gomez Car MD [address] [facility] [place] [address] Social History Tobacco Use Types Packs/Day Years Used Date Smoking Tobacco: Never Assessed Comments Unknown Sex and Gender Information Value Date Recorded Sex Assigned at Not on file Legal Sex Female 4:12 AM CHILD [facility] WORKER Gender Identity Not on file Sexual Orientation Not on file documented as of this encounter Plan of Treatment Not on file documented as of this encounter Visit Diagnoses Not on filedocumented in this encounter Care Teams Dethistler Operator Relationship Specialty Start Date End Date Hilda Del Rio MD PCP - General Pediatrics 09/17/13 documented as of this encounter
--- OUTSIDE RECORDS SUMMARY | 2025-02-16 05:23 | XMS_ITS | Clinical Summary ---
Author Organization [facility] Address [address] [place] [address] Phone Care Team Providers Care Boiler Blower Name Role Phone Hilda Del Rio MD Primary Care Provider [phone] Allergies Active Allergy Reactions Criticality Noted Date [...] on file Legal Sex Female 4:12 AM HYDROGEOLOGIST Gender Identity Not on file Sexual Orientation [...] DETECTED Not Detected 04/12/2017 11:45 AM CDT [facility] GC DNA AMPLIFICATION NOT DETECTED Not Detected 04/12/2017 11:45 AM CDT [facility] [employer] [facility] Urine URINE SPECIMEN / Unknown Collection / Unknown 04/11/2017 8:41 AM CDT 04/11/2017 8:44 AM CDT [facility] - 04/12/2017 11:45 AM CDT Results should not be used for the evaluation of suspected sexual abuse or for other medico-legal indications. The only legally accepted results are from culture. Results cannot be used to assess therapeutic success or failure since nucleic acids may persist following antimicrobial therapy. This test was developed and its performance characteristics determined by [facility]. It has not been cleared by [place] [...] Chavira MD URINE ORDERABLES COM Final Result [facility] CLIA# [id number] [address] [id number] from Last 3 Months or Most Recently Relevant to Health Maintenance Insurance RX [employer] RX Member Subscriber Plan / Payer (Ef fective for All Dates) Name:Merly Abad Relation to Subscriber:Child Name:Merly Abad Payer ID:Not on file Group ID:[id number] Type:RX Commercial Address: [address] [employer] (INTERNAL) [facility] [employer] [facility] [place] [id number] [place] [id number] Advance Directives For more information, please contact: [phone] * Full Code (Latest Code Status on File) Date Activated Date Inactivated Comments 06/23/2017 4:13 PM 06/29/2017 4:14 PM * Full Code Date Activated Date Inactivated Comments 06/09/2017 12:12 PM 06/16/2017 7:12 PM * Full Code Date Activated Date Inactivated Comments 04/08/2017 9:30 PM 04/14/2017 6:41 PM Care Teams Boiler Blower Relationship Specialty Start Date End Date Hilda Del Rio MD PCP - General Pediatrics 09/17/13
--- OUTSIDE RECORDS SUMMARY | 2025-02-16 05:23 | XMS_ITS | Encounter Summary ---
Author Organization [facility] Address [address] [place] [address] Phone Care Team Providers Care Equities Analyst Name Role Phone Hilda Del Rio MD Primary Care Pro vider Donna Chaudhary MD Primary Care Provider [phone] Ruperto Stovall MD Primary Care Provider + No, Physician Primary Care Provider [phone] Maya Uriostegui NP Primary Care Provider [phone] Encounter Details Date Type Department Care Team (Late st Contact Info) Description 12/13/2018 Ophth Exam [facility] Ophthalmology [address] [place] [address] 1[address] [place] [phone] Christine Miles MD PhD [address] [id number] Social History Tobacco Use Types Packs/Day Years Used Date Smoking Tobacco: Never Smokeless Tobacco: Never Alcohol Use Standard Drinks/Week Comments No 0 (1 standard drink = 0.6 oz pur e alcohol) Comments No Sex and Gender Information Value Date Recorded Sex Assigned at Not on file Legal Sex Female 11:28 PM DAIRY TECHNICIAN Gender Identity Not on file Sexual [...] lesions Normal. No le caryn. Care Teams Equities Analyst Relationship Specialty Start Date End Date Hilda Del Rio MD PCP - General 01/20/12 07/26/19 Donna Chaudhary MD PCP - General Pediatrics 07/27/19 10/20/21 Ruperto Stovall MD [address] [place] [address] PCP - General Internal Medicine 10/21/21 06/06/24 No, Physician PCP - General 06/07/24 02/04/25 Maya Uriostegui NP [address] [address] PCP - General Internal Medicine 02/05/25 documented as of this encounter
--- OUTSIDE RECORDS SUMMARY | 2025-02-16 05:23 | XMS_ITS | Encounter Summary ---
Author Organization [employer] Address [address] [place] [address] Care Team Providers Care Movie Writer Name Role Phone Hilda Del Rio MD Primary Care Provider [phone] Encounter Details Date Type Department Care Team (Late st Contact Info) Description 05/02/2007 Outpatient Historical [facility] Support [facility] (Peds Cardiology[facility]) [address] [place] [address] Gomez Car MD [address] [place] [address] Social History Tobacco Use Types Packs/Day Years Used Date Smoking Tobacco: Never Assessed Comments Unknown Sex and Gender Information Value Date Recorded Sex Assigned at Not on file Legal Sex Female 4:12 AM BAKER BREAD Gender Identity Not on file Sexual Orientation Not on file documented as of this encounter Plan of Treatment Not on file documented as of this encounter Visit Diagnoses Not on filedocumented in this encounter Care Teams Movie Writer Relationship Specialty Start Date End Date Hilda Del Rio MD PCP - General Pediatrics 09/17/13 documented as of this encounter
--- OUTSIDE RECORDS SUMMARY | 2025-02-16 05:23 | XMS_ITS | Referral Summary ---
Author Organization [facility] Address [address] [place] [address] Care Team Providers Care Color Mixer Name Role Phone Maya Uriostegui NP Primary Care Provider [phone] Encounters Date Type Department Care Team Description 02/09/2025 Results Follow-Up [facility] Medical Group Primary Care at [address] [address] Maya Uriostegui NP 02/08/[address] [address] 02/05/2025 4:17 PM CDT - 02/05/2025 11:59 PM CDT Hospital Encounter [address] [address] Wellness examination; Dizziness; Near syncope; Screening, lipid Discharge Disposition: Discharge to home or self care 02/05/2025 4:15 PM CDT Lab [facility] Medical Group Outpatient Lab at [address] [phone] Wellness examination (Primary Dx) 02/05/[address] [address] 02/05/2025 3:30 PM CDT Office Visit [facility] Medical Group Primary Care at [address] [address] Maya Uriostegui NP BMI 20.0-20.9, adult (Primary Dx); Wellness examination; Dizziness; Near syncope; Screening, lipid; Anxiety 01/26/2025 Encounter [address] [address] [place] [address] 01/20/2025 Encounter [address] [place] [address] 01/09/2025 Encounter [address] [address] [place] [address] 12/31/2024 Encounter [address] [address] [place] [address] 12/23/[address] [place] [address] 12/23/2024 Results Follow-Up [facility] Medical Group Convenient Care at [place] [address] [place] [address] Eloisa Carr NP 12/21/2024 10:19 AM CDT - 12/21/2024 11:59 PM CDT Hospital Encounter [address] [address] Sore throat Discharge Disposition: Discharge to home or self care 12/21/2024 9:00 AM CDT Office Visit [facility] Medical Group Convenient Care at [place] [address] [place] [address] Sapphire Laws NP Allergic rhinitis, unspecified seasonality, unspecified trigger (Primary Dx); Sore throat 12/17/2024 Encounter [address] [address] [place] [address] 12/10/2024 Encounter [address] [address] [place] [address] 12/05/[address] [address] 11/26/[address] [place] [address] from Last 3 Months Allergies Active Allergy [...] 05/12/2023 Assessment & Plan (09/10/2023 10:29 AM CONSERVATION COORDINATOR): Discussed nature of ovarian cyst. Patient aware to help manage/decrease occurrence of ovarian cyst a low-dose oral combined contraceptive pill is often therapeutic. Patient does not desire to be on a form of hormonal control at this time. Can use [id number] NSAIDs for pain relief if needed. Assessment [...] carried 03/05 in house: R1 (first call) [phone] R1 alt (second call) [phone] R4 (Chief) [phone] Poor growth affecting management of mother in second trimester 07/31/2024 11/07/2024 Overview (09/11/2024): EFW 9%, AC 7%, PI diamante S/p counseling 08/14/2024 PI elevated- >99% 08/22/2024 PI 91% 09/11/2024 EFW 4%, AC 3%, PI >99% Plan: Continue q3 week growth US Weekly dopplers with BPP Weekly NSTs Delivery currently scheduled for 37w [facility] precautions reviewed Assessment & Plan (09/04/2024 10:19 AM CONSERVATION COORDINATOR): PI diamante, BPP 05/18, [facility] precautions reviewed Assessment & Plan (07/31/2024 11:48 AM CDT): Reviewed increased risk of stillbirth with FGR and importance of weekly dopplers and 2x/weekly testing. [facility] precautions reviewed. Maternal varicella, non-immune 06/14/2024 11/07/2024 Overview (06/14/2024): For Varivax pp Supervision of high-risk pre gnancy, unspecified trimester 05/17/2024 11/07/2024 Overview (09/21/2024): [x] Full [facility] Care; [x] Blue Team Referring Provider: Danielito [...] 2/2 elevated dopplers [x] Place of delivery: [facility] [x] Epidural: likely desires but has questions- anesthesia consult placed [x] Blood Products: willing to accept [x] MOC: s/p counseling and pt declines and plans for condoms [x] Method of feeding: breast [x] Photoengraving Helper: discussed, handouts previously provided [x] PP Depression Discussed: Assessment & Plan (09/11/2024 11:20 AM CONSERVATION COORDINATOR): Discussed that the plan could change at [...] weeks [x] 2x/weekly testing 2/2 FGR [x] medicine and pediatric surgery consultation [x] IOL [...] week 09/25/2024 How often do you attend [facility] or islam services? 1 to 4 times per year 09/25/2024 Do you belong to any clubs o r organizations such as anabaptist groups, unions, fraternal or athletic groups, or [...] things needed for daily living? No 09/25/2024 [place] Depression Scale Answer Date Recorded [place] Depression Scale Total 11 11/07/2024 The thought [...] any time in the past 12 m [facility], were you homeless or living in a group home (including now)? No 09/25/2024 Personal Safety Answer Date Recorded Have you ever been in or are you currently in a harmful physical or emotional relationship or is someone making you feel afraid or unsafe? Denies 09/23/2024 Comments No Sex and Gender Information Value Date Recorded Sex Assigned at Not on file Legal Sex Female 11:28 PM CONSERVATION COORDINATOR Gender Identity Not on file Sexual Orientation [...] on file Medical Devices Implanted Type Area Tooth Cutter Spur Device Identifier Shelf Expiration Date Model / [...] GONORRHOEAE/C. TRACHOMATIS AMPLIFICATION Routine 08/24/2024 1:38 PM CONSERVATION COORDINATOR Supervision of high-risk , unspecified trimester HEPATITIS [...] of Race in Diagnosing Kidney Disease, JASN 202). The CKD-EPI equation should not be used for patients with unstable renal function and has not been validated in children and those over 70. Current interpretive data was last reviewed 2021. Blood 02/05/2025 4:17 PM CDT 02/05/2025 10:13 PM CDT us Maya Uriostegui NP LAB BLOOD ORDERABLES Final Re sult [facility] [address] Department [place] [address] * Differential, auto (02/05/2025 4:17 PM CDT) Neutrophil abs 3.27 1.50 - 6.50 K/cumm Imm gran abs 0.01 0.00 - 0.10 K/cumm [facility] Lymphocyte abs 2.31 0.80 - 3.30 K/cumm [facility] Monocyte abs 0.42 0.20 - 0.80 K/cumm [facility] Eosinophil abs 0.10 0.00 - 0.50 K/cumm [facility] Basophil abs 0.03 0.00 - 0.10 K/cumm [facility] Neutrophil pct 53.3 % [facility] Comment: Interpretive Data Percent cell count reference ranges are not reported, since discordance with absolute values may lead to misinterpretation of CBC data. Current Interpretive Data was last revised on 2018. Imm gran pct 0.2 % [facility] Comment: Interpretive Data Percent cell count reference ranges are not reported, since discordance with absolute values may lead to misinterpretation of CBC data. Current Interpretive Data was last revised on 2018. Lymphocyte pct 37.6 % [facility] Comment: Interpretive Data Percent cell count reference ranges are not reported, since discordance with absolute values may lead to misinterpretation of CBC data. Current Interpretive Data was last revised on 2018. Monocyte pct 6.8 % [facility] Comment: Interpretive Data Percent cell count reference ranges are not reported, since discordance with absolute values may lead to misinterpretation of CBC data. Current Interpretive Data was last revised on 2018. Eosinophil pct 1.6 % [facility] Comment: Interpretive Data Percent cell count reference ranges are not reported, since discordance with absolute values may lead to misinterpretation of CBC data. Current Interpretive Data was last revised on 2018. Basophil pct 0.5 % [facility] Comment: Interpretive Data Percent cell count reference ranges are not reported, since discordance with absolute values may lead to misinterpretation of CBC data. Current Interpretive Data was last revised on 2018. Blood 02/05/2025 4:17 PM CDT 02/05/2025 9:35 PM CDT Maya Uriostegui STAFF WEAPONS OFFICER LAB BLOOD ORDERABLES Final Re sult Performing Organization Address [facility] de Phone Number [facility] [address] [employer] [place] [address] * Thyroid Function [place] (02/05/2025 4:17 PM CDT) TSH 1.85 0.30 - 4.20 mcIUnit/mL Blood 02/05/2025 4:17 PM CDT 02/05/2025 9:35 PM CDT Mayatiffanie Uriostegui STAFF WEAPONS OFFICER LAB BLOOD ORDERABLES Final Re sult Performing Organization Address [facility] de Phone Number [facility] [address] [employer] [place] [address] * (ABNORMAL) Iron profile w/ IBC (02/05/2025 4:17 PM CDT) Iron 56 35 - 145 mcg/dl TIBC 313 250 - 400 mcg/dL [facility] Transferrin saturation 18(L) 20 - 50 % [facility] Blood 02/05/2025 4:17 PM CDT 02/05/2025 9:35 PM CDT Maya Uriostegui STAFF WEAPONS OFFICER LAB BLOOD ORDERABLES Final Re sult Performing Organization Address City/[facility]/ZIP Co de Phone Number ASHLEY [address] [employer] [place] [address] * (ABNORMAL) CBC with auto differential (02/05/2025 4:17 PM CDT) Pathologist [facility] WBC 6.14 3.80 - 9.90 K/cumm Hgb 13.2 11.9 - 15.5 g/dL [facility] Hct 41.1 35.6 - 45.5 % [facility] Plt 247 150 - 400 K/cumm [facility] MPV 10.5 9.1 - 12.3 fL [facility] RBC 4.57 3.90 - 5.20 M/cumm [facility] MCV 89.9 81.3 - 96.4 fL [facility] MCH 28.9 27.1 - 33.3 pg [facility] MCHC 32.1(L) 32.3 - 35.7 g/dL [facility] RDW CV 12.6 11.1 - 14.9 % [facility] RDW SD 41.4 35.7 - 48.1 fL [facility] NRBC abs 0.00 0.00 - 0.01 K/cumm [facility] Blood 02/05/2025 4:17 PM CDT 02/05/2025 9:35 PM CDT Maya Uriostegui STAFF WEAPONS OFFICER LAB BLOOD ORDERABLES Final Re sult ASHLEY [address] [employer] [place] [address] * Vitamin D 25 hydroxy (02/05/2025 4:17 PM CDT) Pathologist [facility] Vitamin D 25-OH 37 30 - 80 ng/mL Blood 02/05/2025 4:17 PM CDT 02/05/2025 9:35 PM CDT Maya Uriostegui STAFF WEAPONS OFFICER LAB BLOOD ORDERABLES Final Re sult Performing Organization Address [facility] Co de Phone Number ASHLEY [address] [facility] [place] [address] * Folate (02/05/2025 4:17 PM CDT) Pathologist [facility] Folic acid >20.0 >=5.0 ng/mL Comment:Hemolysis present. R esults may be affected. Blood 02/05/2025 4:17 PM CDT 02/05/2025 9:35 PM CDT Maya Uriostegui STAFF WEAPONS OFFICER LAB BLOOD ORDERABLES Final Re sult Performing Organization Address [facility] Co de Phone Number ASHLEY [address] [place] [address] * Ferritin (02/05/2025 4:17 PM CDT) [facility] Ferritin 39 15 - 150 ng/mL Blood 02/05/2025 4:17 PM CDT 02/05/2025 9:35 PM CDT Maya Uriostegui STAFF WEAPONS OFFICER LAB BLOOD ORDERABLES Final Re sult Performing Organization Address [facility] Co de Phone Number ASHLEY [address] [employer] [place] [address] * Vitamin B12 (02/05/2025 4:17 PM CDT) [facility] Vitamin B12 637 230 - 1,250 pg/mL Blood 02/05/2025 4:17 PM CDT 02/05/2025 9:35 PM CDT Maya Uriostegui STAFF WEAPONS OFFICER LAB BLOOD ORDERABLES Final Re sult Performing Organization Address [facility] Co de Phone Number ASHLEY [address] [employer] [place] [address] * Lipid panel (02/05/2025 4:17 PM CDT) [...] on 2018. HDL 46 >=40 mg/dL [facility] Comment: Interpretive Data Ages < [...] revised on 2024. Non-HDL Cholesterol 133 mg/dL [facility] Comment: Interpretive Data Ages < or = [...] CDT 02/05/2025 9:35 PM CDT Maya Uriostegui NP LAB BLOOD ORDERABLES Final Re sult [facility] [address] [place] [address] * (ABNORMAL) Comprehensive metabolic panel (02/05/2025 4:17 [...] 02/05/2025 9:35 PM CDT us Maya Uriostegui STAFF WEAPONS OFFICER LAB BLOOD ORDERABLES Final Re sult [facility] [address] Department [place] [address] * Throat culture Throat (12/21/2024 10:19 AM CDT) Report Final Report: No growth of pathogens. Comment:Testing performed by : [facility], [address] [facility], [place]., [address] Throat 12/21/2024 10:1 9 AM CDT 12/21/2024 10:56 PM CDT Narrative [facility] - 12/22/2024 10:04 PM CDT Testing performed by [facility] Microbiology Laboratory ([phone]). Sapphire Laws NP LAB MICROBIOLOGY - GENERAL ORD ERABLES Final Result ASHLEY [address] Department [place] [address] * POCT rapid strep A (12/21/2024 9:51 AM CDT) [facility] Rapid Strep A, POC Negative Negative Swab 12/21/2024 9:51 AM CDT Sapphire Laws STAFF WEAPONS OFFICER POINT OF CARE TEST ORDERABLES Final Result * N. gonorrhoeae/C. trachomatis Amplification Urine (08/24/2024 1:38 PM CONSERVATION COORDINATOR) [facility] C. trachomatis Not Detected [facility] N. gonorrhoeae Not Detected ASHLEY [facility] Comment: Interpretive Data This assay detects Chlamydia trachomatis and Neisseria gonorrhoeae by nucleic acid amplification testing (NAAT). This assay has been cleared by the [place] Food and Drug administration. The performance characteristics of this test have been verified by the [facility] Molecular Infectious Disease laboratory. The performance characteristics of this test have not been evaluated in individuals less than 14 years of age. Current Interpretive Data was last revised on 2023. Urine (None) 08/24/2024 1:38 PM CONSERVATION COORDINATOR 08/24/2024 2:19 PM CONSERVATION COORDINATOR Renita Chong NP LAB MICROBIOLOGY - GENERAL ORDERABLES Final Result ASHLEY [facility] [place] [address] [facility] * Hepatitis C antibody Blood (07/31/2024 10:20 AM CDT) [facility] Hep C Ab Nonreactive Nonreactive Comment:Antibodies to HCV no t detected. Does NOT exclude the possibility of recent exposure to HCV. Current interpretive data was last revised on 22 Blood 07/31/2024 10:2 0 AM CDT 07/31/2024 11:35 AM CDT Renita Chong STAFF WEAPONS OFFICER LAB MICROBIOLOGY - GENERAL ORDERABLES Final Result ASHLEY THOMAS [facility] Department [place] [address] * Pap with reflex to High Risk HPV (03/19/2023 11:54 AM CDT) CLINICAL INFORMATION: Sis Arana Comment:Routine exam LMP Sis Arana Comment:[id number] Previous Pap Sis Arana Comment:NONE GIVEN Prev. Bx Sis Arana Comment:CE SOURCE: Sis Arana Comment:Cervix, Endocervix Pap, specimen adequacy Sis Arana Comment: Satisfactory for evaluation. Endocervical/transformation zone component present. HPV interp Sis Arana Comment:Negative for intraep ithelial lesion or malignancy. COMMENTS Sis Arana Comment: This Pap test has been evaluated with computer assisted technology. New Media Strategist Rui Guzman Comment: JAF, CT(ASCP) CT Screening Location: [place] [address] [place] [address] Review director of recruiting Sis Arana Comment: DDS, CT(ASCP) CT screening location: [place] [address] [place] [address] Comment Sis Aarna Comment: EXPLANATORY NOTE: The Pap is a [...] 03/22/2023 6:46 AM CDT us Annabella Peralta STAFF WEAPONS OFFICER LAB CYTOLOGY ORDERABLES Final Re sult [facility] Organization Address City/State/ZIP Co de Phone Number [facility] [address] [place] [address] from Last 3 Months or Most Recently Relevant to Health Maintenance Insurance [facility] [employer] [employer] [facility] Advance Directives For more information, please contact: [phone] * Full Code (Latest Code Status on File) Date Activated Date Inactivated Comments 09/24/2024 2:46 AM 09/26/2024 7:22 PM * Full Code Date Activated Date Inactivated Comments 09/23/2024 11:02 AM 09/24/2024 2:46 AM Full CPR in case of cardiopulmonary arrest Care Teams Color Mixer Relationship Specialty Start Date End Date Maya Uriostegui NP [address] [address] PCP - General Internal Medicine 02/05/25
--- OUTSIDE RECORDS SUMMARY | 2025-02-16 05:23 | XMS_ITS | Clinical Summary ---
Author Organization [facility] Address [address] [place] [address] Phone Care Team Providers Care Brush Machine Setter Name Role Phone Provider, None Primary Care Provider Unavailabl e Allergies Active Allergy Reactions Criticality Noted Date Comments Azithromycin Hives 08/11/2023 Clindamycin Hives 11/08/2022 Doxycycline Hives 11/08/2022 Penicillins Hives 11/08/2022 Medications No known medications Active Problems No known active problems Social History Tobacco Use Types Packs/Day Years Used Date Smoking Tobacco: Never Smokeless Tobacco: Never Tobacco Cessation:Counseling Given: Not Answered Alcohol Use Standard Drinks/Week Comments Yes 0 (1 standard drink = 0.6 oz pur e alcohol) occasionally Comments Unknown Sex and Gender Information Value Date Recorded Sex Assigned at Not on file Legal Sex Female 8:11 PM CDT Gender Identity Not on file Sexual Orientation Not on file Last Filed Vital Signs Vital Sign Reading Time Taken Comments Blood Pressure 123/81 09/19/2024 12:11 AM BANQUET LINE COOK Pulse 100 09/19/2024 12:11 AM BANQUET [employer] COOK Temperature 36.9 C (98.4 F) 09/18/2024 5:49 PM BANQUET LINE COOK Respiratory Rate 18 09/19/2024 12:11 AM BANQUET LINE COOK Oxygen Saturation 100% 09/19/2024 12:11 AM BANQUET LINE COOK Inhaled Oxygen Concentration - - Weight 59.9 kg (132 lb) 09/18/2024 5:49 PM BANQUET LINE COOK Height 157.5 cm (5' 2 ) 09/18/2024 5:49 PM BANQUET [employer] COOK Body Mass Index 24.14 09/18/2024 5:49 PM BANQUET LINE COOK Plan of Treatment Health Maintenance Due Date [...] Date of Phone Billing Address Institutional Other [address] [place] [address] Care Teams Brush Machine Setter Relationship Specialty Start Date End Date Provider, None [place] PCP - General 09/18/24
--- OUTSIDE RECORDS SUMMARY | 2025-02-16 05:23 | XMS_ITS | Encounter Summary ---
Author Organization [facility] Address [address] [place] [address] Care Team Providers Care Apprentice Carpenter Name Role Phone Maya Uriostegui NP Primary Care Provider [phone] Encounter Details Date Type Department Care Team (Late st Contact Info) Description 02/09/2025 Results Follow-Up [facility] Medical Group Primary Care at [address] [address] Maya Uriostegui NP [address] [place] [address] [address] [place] [address] Social History Tobacco Use Types Packs/Day Years [...] often do you attend chur ch or protestant services? 1 to 4 times per year 09/25/2024 Do you belong to any clubs o r organizations such as orthodoxy groups, unions, fraternal or athletic groups, or [...] things needed for daily living? No 09/25/2024 [place] Depression Scale Answer Date Recorded [place] Depression Scale Total 11 11/07/2024 The thought [...] in the past 12 m [facility], were you homeless or living in a longterm (including now)? No 09/25/2024 Personal Safety Answer Date Recorded Have you ever been in or are you currently in a harmful physical or emotional relationship or is someone making you feel afraid or unsafe? 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 No Reason for Warm Transfer: Patient returning call from practice Practice Accepted the Warm Transfer? Yes Additional Comments If YES above, and no barriers. * Telephone Encounter - Ivelisse David MA - 02/15/2025 8:39 AM CDT Lvm informing pt to call back to schedule an appt documented in this encounter Plan of Treatment Not on file documented as of this encounter Visit Diagnoses Not on filedocumented in this encounter Care Teams Apprentice Carpenter Relationship Specialty Start Date End Date Maya Uriostegui NP [address] [facility] [address] [place] [address] PCP - General Internal Medicine 02/05/25 documented as of this encounter
--- OUTSIDE RECORDS SUMMARY | 2025-02-16 05:23 | XMS_ITS | Encounter Summary ---
Author Organization [facility] Address [address] [place] [address] Care Team Providers Care Automatic Chief Name Role Phone Hilda Del Rio MD Primary Care Provider [phone] Encounter Details Date Type Department Care Team (Latest Contact Info) Description 05/02/2007 Outpatient Historical [facility] JosepGomez MD [address] [facility] [address] [place] [address] Unspecified Chest Pain (Primary Dx) Social History Tobacco Use Types Packs/Day Years Used Date Smoking Tobacco: Never Assessed Comments Unknown Sex and Gender Information Value Date Recorded Sex Assigned at Not on file Legal Sex Female 4:12 AM INSULATION PACKER Gender Identity Not on file Sexual Orientation Not on file documented as of this encounter Plan of Treatment Not on file documented as of this encounter Visit Diagnoses Diagnosis Chest pain, unspecified- Primary documented in this encounter Care Teams Automatic Chief Relationship Specialty Start Date End Date Hilda Del Rio MD PCP - General Pediatrics 09/17/13 documented as of this encounter
--- OUTSIDE RECORDS SUMMARY | 2025-02-16 05:23 | XMS_ITS | Clinical Summary ---
Author Organization [facility] [employer] Address [address] [place] [address] Care Team Providers Care Associate Music Professor Name Role Phone Unavailable Primary Care Provider Unavailabl e Source Comments [facility],non-owned Affiliates and Associated Physician Practices is amultiple site organization consisting of ambulatory clinics and hospital sitesin [place], [place], [place] and [place]. This disclosure is being madepursuant to the Care Everywhere program and may not contain all information available regarding this patient. Last updated 18.[facility] [employer] Allergies Active Allergy Reactions Criticality Noted Date [...] Problem Noted Date Diagnosed Date Resolved Date MCC: abnormality in pr egnancy (HCC) - Gastroschisis 04/18/2024 05/15/2024 Overview (05/15/2024): Images from the original note were not included. MCC PATIENT--PLEASE CALL [phone] (ex 2) IF TRIAGED OR ADMITTED Care Provider: Dr. Kimmie [place] [facility] [place] consultants involved: Claudy; JOEL-Jessica Diagnosis: Gastroschisis Planned surveillance: Initial MCC appointment on 05/25/2024- Patient called on 05/15 to cancel all MCC appointments. Did not want to reschedule at this time. Stated continuing care elsewhere. Delivery location: Delivery mode: Desired Delivery GA: follow up: Operating Room Assistant: Autopsy indicated: Genetics note: Engine Inspector Concerns: Care plan based on evaluation and [...]
--- OUTSIDE RECORDS SUMMARY | 2025-02-16 05:23 | XMS_ITS | Clinical Summary ---
Author Organization [facility] Address [address] [place] [address] Care Team Providers Care Investigation Officer Name Role Phone Maya Uriostegui NP Primary Care Provider [phone] Allergies Active Allergy Reactions Criticality Noted Date [...] 05/12/2023 Assessment & Plan (09/10/2023 10:29 AM SOCIAL SERVICES COORDINATOR): Discussed nature of ovarian cyst. Patient aware to help manage/decrease occurrence of ovarian cyst a low-dose oral combined contraceptive pill is often therapeutic. Patient does not desire to be on a form of hormonal control at this time. Can use [id number] NSAIDs for pain relief if needed. Assessment [...] carried 03/05 in house: R1 (first call) [phone] R1 alt (second call) [phone] R4 (Chief) [phone] Poor growth affecting management of mother in second trimester 07/31/2024 11/07/2024 Overview (09/11/2024): EFW 9%, AC 7%, PI wnl S/p counseling 08/14/2024 PI elevated- >99% 08/22/2024 PI 91% 09/11/2024 EFW 4%, AC 3%, PI >99% Plan: Continue q3 week growth US Weekly dopplers with BPP Weekly NSTs Delivery currently scheduled for 37w [facility] precautions reviewed Assessment & Plan (09/04/2024 10:19 AM SOCIAL SERVICES COORDINATOR): PI wnl, BPP 05/18, [facility] precautions reviewed Assessment & Plan (07/31/2024 11:48 AM CDT): Reviewed increased risk of stillbirth with FGR and importance of weekly dopplers and 2x/weekly testing. [facility] precautions reviewed. Maternal varicella, non-immune 06/14/2024 11/07/2024 [...] 2/2 elevated dopplers [x] Place of delivery: [facility] [x] Epidural: likely desires but has questions- anesthesia consult placed [x] Blood Products: willing to accept [x] MOC: s/p counseling and pt declines and plans for condoms [x] Method of feeding: breast [x] Principal Developer: discussed, handouts previously provided [x] PP Depression Discussed: Assessment & Plan (09/11/2024 11:20 AM SOCIAL SERVICES COORDINATOR): Discussed that the plan could change [...] weeks [x] 2x/weekly testing 2/2 FGR [x] [facility] medicine and pediatric surgery consultation [x] IOL [...] Department Care Team Description 02/09/2025 Results Follow-Up [facility] Primary Care at [address] [address] Maya Uriostegui NP 02/08/[address] [address] 02/05/2025 4:17 PM CDT - 02/05/2025 11:59 PM CDT Hospital Encounter [address] [address] Wellness examination; Dizziness; Near syncope; Screening, lipid Discharge Disposition: Discharge to home or self care 02/05/2025 4:15 PM CDT Lab [facility] Outpatient Lab at [address] [address] Wellness examination (Primary Dx) 02/05/2025 3:30 PM CDT Office Visit [facility] Primary Care at [address] [address] Maya Uriostegui NP BMI 20.0-20.9, adult (Primary Dx); Wellness examination; Dizziness; Near syncope; Screening, lipid; Anxiety 02/05/[address] [address] 01/26/[address] [address] 01/20/[address] [place] [address] 01/09/2025 Encounter [address] [address] [place] [address] 12/31/[address] [address] 12/23/[address] [address] 12/23/2024 Results Follow-Up [facility] [place] [address] [place] [address] Eloisa Carr NP 12/21/2024 10:19 AM CDT - 12/21/2024 11:59 PM CDT Hospital Encounter [address] [address] Sore throat Discharge Disposition: Discharge to home or self care 12/21/2024 9:00 AM CDT Office Visit [facility] [address] [place] [address] Sapphire Laws NP Allergic rhinitis, unspecified seasonality, unspecified trigger (Primary Dx); Sore throat 12/17/[address] [address] 12/10/2024 Encounter [address] [address] [place] [address] 12/05/2024 Encounter [address] [address] [place] [address] 11/26/[address] [address] from Last 3 Months Immunizations Immunization Administration [...] often do you attend chur ch or jainism services? 1 to 4 times per year 09/25/2024 Do you belong to any clubs o r organizations such as confucianism groups, unions, fraternal or athletic groups, or [...] things needed for daily living? No 09/25/2024 [place] Depression Scale Answer Date Recorded [place] Depression Scale Total 11 11/07/2024 The thought [...] any time in the past 12 m [facility], were you homeless or living in a penitentiary (including now)? No 09/25/2024 Personal Safety Answer Date Recorded Have you ever been in or are you currently in a harmful physical or emotional relationship or is someone making you feel afraid or unsafe? Denies 09/23/2024 Comments No Sex and Gender Information Value Date Recorded Sex Assigned at Not on file Legal Sex Female 11:28 PM SOCIAL SERVICES COORDINATOR Gender Identity Not on file Sexual [...] Livin g 5 5 Inder w J Dannb Mini Diego MD Complications:None Delivery Location:[facility] ([facility] 58LD) Last Filed Vital Signs Vital Sign [...] Completed 07/31/2024 Medical Devices Implanted Type Area Supply Chain Generalist Device Identifier Shelf Expiration Date Model / [...] GONORRHOEAE/C. TRACHOMATIS AMPLIFICATION Routine 08/24/2024 1:38 PM SOCIAL SERVICES COORDINATOR Supervision of high-risk , unspecified trimester [...] NP LAB BLOOD ORDERABLES Final Re sult [facility] [address] [place] [address] * Differential, auto (02/05/2025 4:17 PM CDT) Neutrophil abs 3.27 1.50 - 6.50 K/cumm Imm gran abs 0.01 0.00 - 0.10 K/cumm [facility] Lymphocyte abs 2.31 0.80 - 3.30 K/cumm [facility] Monocyte abs 0.42 0.20 - 0.80 K/cumm [facility] Eosinophil abs 0.10 0.00 - 0.50 K/cumm [facility] Basophil abs 0.03 0.00 - 0.10 K/cumm [facility] Neutrophil pct 53.3 % [facility] Comment: Interpretive Data Percent cell count reference ranges are not reported, since discordance with absolute values may lead to misinterpretation of CBC data. Current Interpretive Data was last revised on 2018. Imm gran pct 0.2 % [facility] Comment: Interpretive Data Percent cell count reference ranges are not reported, since discordance with absolute values may lead to misinterpretation of CBC data. Current Interpretive Data was last revised on 2018. Lymphocyte pct 37.6 % [facility] Comment: Interpretive Data Percent cell count reference ranges are not reported, since discordance with absolute values may lead to misinterpretation of CBC data. Current Interpretive Data was last revised on 2018. Monocyte pct 6.8 % [facility] Comment: Interpretive Data Percent cell [...] 4:17 PM CDT 02/05/2025 9:35 PM CDT Finomial INDUSTRIAL MAINTENANCE ELECTRICIAN LAB BLOOD ORDERABLES Final Re sult Performing Organization Address [facility]/ZIP Co de Phone Number ASHLEY [address] [place], [place] [id number] * Thyroid Function [place] (02/05/2025 4:17 PM CDT) TSH 1.85 0.30 - 4.20 mcIUnit/mL Blood 02/05/2025 4:17 PM CDT 02/05/2025 9:35 PM CDT [employer] INDUSTRIAL MAINTENANCE ELECTRICIAN LAB BLOOD ORDERABLES Final Re sult Performing Organization Address [facility]/ZIP Co de Phone Number KALPANASANTIAGO AMEZCUA [address] [place] [address] * (ABNORMAL) Iron profile w/ IBC (02/05/2025 4:17 PM CDT) Iron 56 35 - 145 mcg/dl TIBC 313 250 - 400 mcg/dL [facility] Transferrin saturation 18(L) 20 - 50 % [facility] Blood 02/05/2025 4:17 PM CDT 02/05/2025 9:35 PM CDT Maya Uriostegui INDUSTRIAL MAINTENANCE ELECTRICIAN LAB BLOOD ORDERABLES Final Re sult Performing Organization Address City/[facility]/ZIP Co de Phone Number ASHLEY AMEZCUA [address] [place] [address] * (ABNORMAL) CBC with auto differential (02/05/2025 4:17 PM CDT) WBC 6.14 3.80 - 9.90 K/cumm Hgb 13.2 11.9 - 15.5 g/dL [facility] Hct 41.1 35.6 - 45.5 % [facility] Plt 247 150 - 400 K/cumm [facility] MPV 10.5 9.1 - 12.3 fL [facility] RBC 4.57 3.90 - 5.20 M/cumm [facility] MCV 89.9 81.3 - 96.4 fL [facility] MCH 28.9 27.1 - 33.3 pg [facility] MCHC 32.1(L) 32.3 - 35.7 g/dL [facility] RDW CV 12.6 11.1 - 14.9 % [facility] RDW SD 41.4 35.7 - 48.1 fL [facility] NRBC abs 0.00 0.00 - 0.01 K/cumm [facility] Blood 02/05/2025 4:17 PM CDT 02/05/2025 9:35 PM CDT Maya Uriostegui INDUSTRIAL MAINTENANCE ELECTRICIAN LAB BLOOD ORDERABLES Final Re sult Performing Organization Address City/[facility]/ZIP Co de Phone Number ASHLEY AMEZCUA [address] [place] [address] * Vitamin D 25 hydroxy (02/05/2025 4:17 PM CDT) Vitamin D 25-OH 37 30 - 80 ng/mL Blood 02/05/2025 4:17 PM CDT 02/05/2025 9:35 PM CDT us Maya Uriostegui INDUSTRIAL MAINTENANCE ELECTRICIAN LAB BLOOD ORDERABLES Final Re sult Performing Organization Address [facility] Co de Phone Number ASHLEY AMEZCUA [address] [facility] [place] [address] * Folate (02/05/2025 4:17 PM CDT) Folic acid >20.0 >=5.0 ng/mL Comment:Hemolysis present. R esults may be affected. Blood 02/05/2025 4:17 PM CDT 02/05/2025 9:35 PM CDT us Maya Uriostegui INDUSTRIAL MAINTENANCE ELECTRICIAN LAB BLOOD ORDERABLES Final Re sult Performing Organization Address [facility] Co de Phone Number KALPANASANTIAGO AMEZCUA [address] [place] [address] * Ferritin (02/05/2025 4:17 PM CDT) Ferritin 39 15 - 150 ng/mL Blood 02/05/2025 4:17 PM CDT 02/05/2025 9:35 PM CDT us Maya Uriostegui INDUSTRIAL MAINTENANCE ELECTRICIAN LAB BLOOD ORDERABLES Final Re sult Performing Organization Address [facility] Co de Phone Number KALPANASANTIAGO [address] [place] [address] * Vitamin B12 (02/05/2025 4:17 PM CDT) Vitamin B12 637 230 - 1,250 pg/mL Blood 02/05/2025 4:17 PM CDT 02/05/2025 9:35 PM CDT us Maya Uriostegui INDUSTRIAL MAINTENANCE ELECTRICIAN LAB BLOOD ORDERABLES Final Re sult Performing Organization Address [facility] Co de Phone Number ASHLEY AMEZCUA [address] Department [place] [address] * Lipid panel (02/05/2025 4:17 PM CDT) [...] NCEP Expert Panel. Circulation 2004;110:227 3. Miguel M et al. RAMON Cardiol. 2020 February 08;5(5):540-548. [...] last revised on 2018. Chol/HDL ratio 4 A[facility]LEY AMEZCUA Blood 02/05/2025 4:17 PM CDT 02/05/2025 9:35 PM CDT us Maya Uriostegui NP LAB BLOOD ORDERABLES Final Re sult [facility] AMEZCUA [address] [place] [address] * (ABNORMAL) Comprehensive metabolic panel [...] classification and Diagnosis of Diabetes Diabetes Care 202; 46: S19-S40. Current interpretive data was last [...] CDT 02/05/2025 9:35 PM CDT Maya Uriostegui INDUSTRIAL MAINTENANCE ELECTRICIAN LAB BLOOD ORDERABLES Final Re sult [facility] [address] [place] [address] * Throat culture Throat (12/21/2024 10:19 AM CDT) Report Final Report: No growth of pathogens. Comment:Testing performed by : [facility], [address] [facility], [place]., [address] Throat 12/21/2024 10:1 9 AM CDT 12/21/2024 10:56 PM CDT Narrative ASHLEY - 12/22/2024 10:04 PM CDT Testing performed by [facility] Microbiology Laboratory ([phone]). Result [facility] Sapphire Laws NP LAB MICROBIOLOGY - GENERAL ORD ERABLES Final Result [facility] [address] [facility] Department [place] [address] * POCT rapid strep A (12/21/2024 9:51 AM CDT) Rapid Strep A, POC Negative Negative Swab 12/21/2024 9:51 AM CDT Result [facility] Sapphire Laws NP POINT OF CARE TEST ORDERABLES Final Result * N. gonorrhoeae/C. trachomatis Amplification Urine (08/24/2024 1:38 PM SOCIAL SERVICES COORDINATOR) [facility] C. trachomatis Not Detected [facility] N. gonorrhoeae Not Detected [facility] Comment: Interpretive Data This assay detects Chlamydia trachomatis and Neisseria gonorrhoeae by nucleic acid amplification testing (NAAT). This assay has been cleared by the [place] Food and Drug administration. The performance characteristics of this test have been verified by the [facility] Molecular Infectious Disease laboratory. The performance characteristics of this test have not been evaluated in individuals less than 14 years of age. Current Interpretive Data was last revised on 2023. Urine (None) 08/24/2024 1:38 PM SOCIAL SERVICES COORDINATOR 08/24/2024 2:19 PM SOCIAL SERVICES COORDINATOR Result [facility] Renita Chong NP LAB MICROBIOLOGY - GENERAL ORDERABLES Final Result [facility] [place] [address] [facility] * Hepatitis C antibody Blood (07/31/2024 10:20 AM CDT) Hep C Ab Nonreactive Nonreactive Comment:Antibodies to HCV no t detected. Does NOT exclude the possibility of recent exposure to HCV. Current interpretive data was last revised on 22 Blood 07/31/2024 10:2 0 AM CDT 07/31/2024 11:35 AM CDT Renita Chong NP LAB MICROBIOLOGY - GENERAL ORDERABLES Final Result [facility] [place] [address] * Pap with reflex to High Risk HPV (03/19/2023 11:54 AM CDT) CLINICAL INFORMATION: Sis Arana Comment:Routine exam LMP Sis Arana Comment:[id number] Previous Pap Sis Arana Comment:NONE GIVEN Prev. Bx Sis Arana Comment:CE SOURCE: Sis Arana Comment:Cervix, Endocervix Pap, specimen adequacy Sis Arana Comment: Satisfactory for evaluation. Endocervical/transformation zone component present. HPV interp Sis Arana Comment:Negative for intraep ithelial lesion or malignancy. COMMENTS Sis Arana Comment: This Pap test has been evaluated with computer assisted technology. Dryer Operator Rui Guzman Comment: JAF, CT(ASCP) CT Screening Location: [place] [address] [address] Review propulsion systems engineer Sis Arana Comment: DDS, CT(ASCP) CT screening location: [place] [address] [address] [address] Comment Sis Arana Comment: EXPLANATORY NOTE: The [...] NP LAB CYTOLOGY ORDERABLES Final Re sult [facility] [address] [place] [address] from Last 3 Months or Most Recently Relevant to Health Maintenance Insurance [facility] [employer] [employer] [facility] Advance Directives For more information, please contact: [phone] * Full Code (Latest Code Status on File) Date Activated Date Inactivated Comments 09/24/2024 2:46 AM 09/26/2024 7:22 PM * Full Code Date Activated Date Inactivated Comments 09/23/2024 11:02 AM 09/24/2024 2:46 AM Full CPR in case of cardiopulmonary arrest Care Teams Investigation Officer Relationship Specialty Start Date End Date Maya Uriostegui NP [address] [place] [address] PCP - General Internal Medicine 02/05/25
--- OUTSIDE RECORDS SUMMARY | 2025-02-16 05:23 | XMS_ITS | Encounter Summary ---
Author Organization [facility] Address [address] [place] [address] Phone Care Team Providers Care Gambling Box Person Name Role Phone Ruperto Stovall MD Primary Care Provider [phone] Provider, None Primary Care Provider Unavailabl e Provider, None Primary Care Provider Unavailabl e Encounter Details Date Type Department Care Team (Late st Contact Info) Description 09/22/2023 Lab Requisition [facility] Services [address] [place] [address] Steve Del Cid, PAC [address] [place] [address] Encounter for pre-employment examination Social [...] QUANTIFERON-TB GOLD PLUS Routine 09/22/2023 10:50 AM FREIGHT CALLER Encounter for pre-employment examination documented in this encounter Results * QUANTIFERON-TB GOLD PLUS (09/22/2023 10:50 AM FREIGHT CALLER) NIL CONTROL 0.00 <8.01 IU/mL 09/24/2023 10:22 AM [facility] TB ANTIGEN 1 0.04 <0.35 IU/mL 09/24/2023 10:22 AM [facility] TB ANTIGEN 2 0.00 <0.35 IU/mL 09/24/2023 10:22 AM [facility] MITOGEN CONTROL 10.00 >0.49 IU/mL 09/24/20 10:22 AM [facility] INTEPRETATION TB NEGATIVE NEGATIVE, NEGATIVE (TB antigen response less than 25% of internal negative control value) 09/24/2023 10:22 AM [facility] Comment:No immune response t o Mycobacterium tuberculosis antigens was noted. M. tuberculosis infection unlikely. Blood No Phlebotomy Charged / Unknown 09/22/2023 10:50 AM FREIGHT CALLER 09/22/2023 12:21 PM [facility] - 09/24/2023 10:22 AM [facility] A POSITIVE QUANTIFERON-TB GOLD PLUS RESULT SHOULD [...] immunocompromised individuals. https://www.cdc.gov/tb/publications/guidelines/testing.htm us Steve Del Cid [facility] IMMUNOLOGY ORDERABLES Final Result [facility] [address] [place] [address], documented in this encounter Visit Diagnoses Diagnosis Encounter for pre-employment examination Health examination of defined subpopulation documented in this encounter Additional Health Concerns Infection Onset Date Last Indicated Resolved Time COVID - 19 08/21/2024 08/21/2024 08/21/2024 10:3 0 AM FREIGHT CALLER COVID - 19 09/18/2024 09/18/2024 09/18/2024 6:53 PM FREIGHT CALLER documented as of this encounter Care Teams Gambling Box Person Relationship Specialty Start Date End Date Ruperto Stovall MD [facility] [place] [address] PCP - General Internal Medicine 05/18/23 12/12/23 Provider, None [place] PCP - General 12/13/23 09/17/24 Provider, None [place] PCP - General 09/18/24 documented as of this encounter
--- OUTSIDE RECORDS SUMMARY | 2025-02-16 05:44 | XMS_ITS | Encounter Summary ---
Author Organization [employer] Address [address] [place] [address] Care Team Providers Care Button Sewing Machine Operator Name Role Phone Hilda Del Rio MD Primary Care Provider [phone] Reason for Visit * Reason Comments Medication Refill Encounter Details Date Type Department Care Team (Late st Contact Info) Description 11/20/2013 Refill [place] [facility] [place] [facility] [place] [address] Saundra Suarez MD [address] [place] [address] [address] [place] [address] Social History Tobacco Use Types Packs/Day Years Used Date Smoking Tobacco: Never Smokeless Tobacco: Never Alcohol Use Standard Drinks/Week Comments No 0 (1 standard drink = 0.6 oz pur e alcohol) Comments No Sex and Gender Information Value Date Recorded Sex Assigned at Not on file Legal Sex Female 4:12 AM MOBILE ENGINEER Gender Identity Not on file Sexual Orientation Not on file Occupation Industry Job Start Date Job End Date Not on file Not on file Not on file Not on file documented as of this encounter Plan of Treatment Not on file documented as of this encounter Visit Diagnoses Not on filedocumented in this encounter Care Teams Button Sewing Machine Operator Relationship Specialty Start Date End Date Hilda Del Rio MD PCP - General Pediatrics 09/17/13 documented as of this encounter
--- OUTSIDE RECORDS SUMMARY | 2025-02-16 05:44 | XMS_ITS | Encounter Summary ---
Author Organization [facility] Address [address] [place] [address] Care Team Providers Care Chemical Plant Technical Director Name Role Phone Hilda Del Rio MD Primary Care Provider [phone] Encounter Details Date Type Department Care Team (Latest Contact Info) Description 05/02/2007 Outpatient Historical [facility] JosepGomez MD [address] [facility] [place] [address] Unspecified Chest Pain (Primary Dx) Social History Tobacco Use Types Packs/Day Years Used Date Smoking Tobacco: Never Assessed Comments Unknown Sex and Gender Information Value Date Recorded Sex Assigned at Not on file Legal Sex Female 4:12 AM PARACHUTE CUSHION INSTALLER Gender Identity Not on file Sexual Orientation Not on file documented as of this encounter Plan of Treatment Not on file documented as of this encounter Visit Diagnoses Diagnosis Chest pain, unspecified- Primary documented in this encounter Care Teams Chemical Plant Technical Director Relationship Specialty Start Date End Date Hilda Del Rio MD PCP - General Pediatrics 09/17/13 documented as of this encounter
--- OUTSIDE RECORDS SUMMARY | 2025-02-16 05:44 | XMS_ITS | Clinical Summary ---
Author Organization [facility] Address [address] [place] [address] Care Team Providers Care Screen Printer Name Role Phone Unavailable Primary Care Provider Unavailabl e Source Comments [facility],non-owned Affiliates and Associated Physician Practices is amultiple site organization consisting of ambulatory clinics and hospital sitesin [place], [place], [place] and [place]. This disclosure is being madepursuant to the Care Everywhere program and may not contain all information available regarding this patient. Last updated 18.[facility] Allergies Active Allergy Reactions Criticality Noted Date [...] Problem Noted Date Diagnosed Date Resolved Date CORRECTION: abnormality in pr egnancy (HCC) - Gastroschisis 04/18/2024 05/15/2024 Overview (05/15/2024): Images from the original note were not included. CORRECTION PATIENT--PLEASE CALL [phone] (ex 2) IF TRIAGED OR ADMITTED Care Provider: Dr. Kimmie Howard [place] [facility] [place] consultants involved: Claudy; JOEL-Jessica Diagnosis: Gastroschisis Planned surveillance: Initial CORRECTION appointment on 05/25/2024- Patient called on 05/15 to cancel all CORRECTION appointments. Did not want to reschedule at this time. Stated continuing care elsewhere. Delivery location: Delivery mode: Desired Delivery GA: follow up: Image Consultant: Autopsy indicated: Genetics note: Pit Shovel Operator Concerns: Care plan based on evaluation and [...]
--- OUTSIDE RECORDS SUMMARY | 2025-02-16 05:44 | XMS_ITS | Encounter Summary ---
Author Organization [employer] Address [address] [place] [address] Care Team Providers Care Road Machine Operator Name Role Phone Hilda Del Rio MD Primary Care Provider [phone] Encounter Details Date Type Department Care Team (Late st Contact Info) Description 05/02/2007 Outpatient Historical [facility] (Peds Cardiology-[facility]) [address] [place] [address] Gomez Car MD [address] [place] [address] Social History Tobacco Use Types Packs/Day Years Used Date Smoking Tobacco: Never Assessed Comments Unknown Sex and Gender Information Value Date Recorded Sex Assigned at Not on file Legal Sex Female 4:12 AM SAMPLE CHECKER Gender Identity Not on file Sexual Orientation Not on file documented as of this encounter Plan of Treatment Not on file documented as of this encounter Visit Diagnoses Not on filedocumented in this encounter Care Teams Road Machine Operator Relationship Specialty Start Date End Date Hilda Del Rio MD PCP - General Pediatrics 09/17/13 documented as of this encounter
--- OUTSIDE RECORDS SUMMARY | 2025-02-16 05:44 | XMS_ITS | Data Portability ---
Author Organization [facility] [place] Address [address] [place] [address] Assessment No assessment recorded. Plan of Treatment Reminders Order Date Submit Date Provider Last Modified By Organization Details Last Modified Time Details Appointments None recorded. Lab None recorded. Referral None recorded. Procedures None recorded. Surgeries None recorded. Imaging US, obstetric, transvagina l 2023 [email or web address], [address], [place], [address], 20:58:23 US, obstetric, transvagina l [email or web address], [facility] [address], [place], [address], 22:05:31 Medication Orders None recorded. Patient TargetsNo targets recorded. Patient InstructionsNo instructions recorded. Reason for Referral None Reported. Results Created Date Observation Date Name Description Value Unit Range Abnormal Flag Note LastModifiedBy Organization Detail LastModifiedTime 02/21/20 24 02/21/2024 US, obste tric, trans vagin al No observ ation record ed. [email or web address] [facility] [address], [place], [address], 02/21/2024 16:48:36 02/21/20 24 02/21/2024 US, obste tric, follo w-up No observ ation record ed. [address], [place], [address], 02/22/2024 12:18:58 02/29/20 24 02/29/2024 US, obste tric, trans vagin al No observ ation record ed. [email or web address] [facility] [address], [place], [address], 02/29/2024 12:25:35 02/29/20 24 02/29/2024 US, obste tric, trans vagin al No observ ation record ed. [address], [place], [address], 03/01/2024 13:03:17 Result Notes None recorded. Procedures Surgical History Date Name Laterality Status Provider Name and Address Organization Details Recorded Time 4 Date of Last Pap Smear completed [facility]na [facility] 02/21/2024 16:11:17 3 Date of [facility] 16:11:17 Imaging Results Imaging Date Name Status LastModified by Organization Details LastModified Time 02/21/2024 US, obstetric, transvaginal completed [email or web address] [facility] [address], [place], [address], 02/21/2024 16:48:36 02/21/2024 US, obstetric, follow-up completed [email or web address] [address], [place], [address], 02/22/2024 12:18:58 02/29/2024 US, obstetric, transvaginal completed [email or web address] [facility] [address], [place], [address], 02/29/2024 12:25:35 02/29/2024 US, obstetric, transvaginal completed [address], [place], [address], 03/01/2024 13:03:17 Procedure Notes None recorded. Medical Equipment None Reported. Allergies Allergen ID Allergen Name Allergen Category Reaction Reaction Severity Criticality Documentation Date Start Date Code Code System Note Provider Name and Address Organization Details Recorded Time 06927 Product containin g penicilli n (product) medicatio n Not available Not available Not available 02/21/2024 52910 8001 SNOMED Corinna Karel [facility] 16:11:32 Medications Name Sig Start Date Stop Date Status Note LastModified by Organization Details LastModified Time medroxyprogester one 10 mg tablet active Not Available Not Avail able Not Available metronidazole 500 mg tablet 02/21 completed Not Available Not Available Not Available azithromycin 500 mg tablet 02/21 completed Not Available Not Available Not Available nitrofurantoin monohydrate/macr ocrystals 100 mg capsule 02/21 completed Not Available Not Available Not Available Vitals Date Recorded Body height Body mass index (BMI) Body weight Systolic blood pressure Diastolic blood pressure Provider Name and Address Organization Details Last Updated DateTime 02/21/2024 154.94 cm 18.9 kg/m2 37460.24 g 104 mm[Hg] 69 mm[Hg] Corinna Karel [facility] 16:11:06 Social History Question Answer Notes LastModified by Organizat ion Details LastModified Time What Is Your Level Of Alcohol Consumption? None [email or web address] Information not available 02/21/2024 Are You Blind Or Do You Have Difficulty Seeing? No [email or web address] Information not available 02/21/2024 What Is Your Level Of Caffeine Consumption? Moderate [email or web address] Information not available 02/21/2024 How Much Tobacco Do You Chew? None [email or web address] Information not available 02/21/2024 In The 14 Days Before Symptom Onset, Have You Had Close Contact With A Laboratory-confirme d COVID-19 While That Case Was Ill? No [email or web address] Information n ot available 02/21/2024 In The 14 Days Before Symptom Onset, Have You Had Close Contact With A Person Who Is Under Investigation For COVID-19 While That Person Was Ill? No [email or web address] Information not available 02/21/2024 Have You Been To An Area Known To Be High Risk For COVID-19? No [email or web address] Information not available 02/21/2024 Are You Deaf Or Do You Have Serious Difficulty Hearing? No [email or web address] Information not available 02/21/2024 What Type Of Diet Are You Following? REGULAR [email or web address] Information n ot available 02/21/2024 What Is The Highest Grade Or Level Of School You Have Completed Or The Highest Degree You Have Received? [id number] [email or web address] Information not available 02/21/2024 Are There Any Guns Present In Your Home? No [email or web address] Information not available 02/21/2024 Do You Use Protection During Sex? No [email or web address] Information not available 02/21/2024 Do You Use Your Seat Belt Or Car Seat Routinely? Yes Information not available 02/21/2024 Are You Sexually Active? Yes [email or web address] Information not available 02/21/2024 Do You Have Smoke And Carbon Monoxide Detectors In Your Home? No [email or web address] Information not available 02/21/2024 How Much Tobacco Do You Smoke? No [email or web address] Information not available 02/21/2024 Do You Feel Stressed (tense, Restless, Nervous, Or Anxious, Or Unable To Sleep At Night)? [id number] Information not available 02/21/2024 Do You Use Any Illicit Or Recreational Drugs? No [email or web address] Information not available 02/21/2024 Do You Use Sunscreen Routinely? No [email or web address] Information not available 02/21/2024 Have You Used IV Drugs? No [email or web address] Information not available 02/21/2024 Sex: Unknown Functional Status Question Answer Note LastModified by Organizat ion Details LastModified Time Do you have difficulty walking or climbing stairs? No [email or web address] Information not available 02/21/2024 Are you able to walk? YESWOREST Information not available 02/21/2024 Are you able to care for yourself? Yes [email or web address] Information not available 02/21/2024 Do you have difficulty dressing or bathing? No [email or web address] Information not available 02/21/2024 What is your exercise level? Occasional [email or web address] Information not available 02/21/2024 Mental Status None recorded. Family History Nothing Reported. Medical History Condition Response Allergies (Food, seasonal, environmental ) N Other N Breast Cancer N Drug/Latex Allergies/Reactions N Blood Transfusion N Dermatologic Disorders N Lung Disease N Defects or Inherited Disease N Breast Problem N Gestational Diabetes N Hematologic disorders N Anesthesia Complications N History of STI N Deep Vein Thrombosis N Polycystic ovary syndrome N Anxiety Disorder N Autoimmune disease N Arthritis N Infertility N Polyps N Acid Reflux (GERD) N History of abnormal pap N Cancer N Stroke N Varicosities N Neurologic/Epilepsy N Endometriosis N High Cholesterol N Headaches N Fibromyalgia N Kidney Disease N Heart Problems N Kidney or Bladder Problems N Thyroid Problems N GI Problems N Eating Disorder N Anemia N Art (IVF or FET) N Psychiatric Illness N Ovarian Cancer N Diabetes N Pulmonary (TB, Asthma) N Hepatitis/Liver Disease N No Past Medical History N Eczema N Urinary Tract Infection N Abuse/Domestic Violence N Asthma N Trauma/Violence N Depression/ depression N Heart Disease N Pre-Eclampsia N Hypertension N Osteoporosis N Thrombophilias N Gynecological History Statement/Question Response Abnormal Pap N Date of Last Mammogram 06/11/2023 Date of LMP 12/29/2023 On BCP's at Conception? N N Was last menstrual period normal Y STIs/STDs N HPV Vaccine Y Current Control Method Sexually Active? Y None Date of Last Pap Smear 11/11/2023 Sexual Problems? N Desired Control Method None LMP Approximate N Obstetrics History GPAL:G 0 P 0 0 0 0 Past Encounters Encounter ID Performer Location Encounter Start Date Encounter Closed Date Diagnosis/Indication Diagnosis SNOMED-CT Code Diagnosis ICD10 Code Diagnosis Note [id number] Abdulaziz Benedict MD [facility] [address] [address] 02/21/2024 15:07:11 02/21/2024 16:23:46 Uncertain viability of [id number] O36.80X0 O20.0 Z3A.01 [id number] Abdulaziz Benedict MD [facility] [address] [address] 02/21/2024 15:07:45 02/22/2024 01:44:20 of unknown location [id number] 50444 O26.90 This patient is a 23-year-ol d female with amenorrhea and a positive test. She possibly has a very early gestation. Ultrasound did not reveal an intrauteri ne gestationa l sac. There may be a pseudo sac forming. There is a worrisome lesion in the right adnexa. Worrisome for ectopic . I discussed all these findings with the patient. We discussed observatio n and serial HCGs. Discussed future ultrasound . Discussed precaution s for pain. Spent over 20 minutes face-to-fa ce. More than 50% was counseling . We will perform serial HCGs. We will follow up with her after the 2nd set. [id number] Abdulaziz Benedict MD [facility] [address] [address] 02/29/2024 09:56:36 02/29/2024 10:35:51 screening [id number] Z36.87 Z3A.01 Health Concerns Section Related Observation LastModified by Organization Detai ls LastModified Time None Recorded Concern Status LastModified by Organization Details LastModified Time None Recorded Advance Directives Directive None Recorded Payers Encounter Date Sequence Insurance Name Policy Number Policy Grimm Covered Member ID Grimm Member ID Guarantor Name 02/21/2024 1 [facility] [id number] Charles Vitale [id number] Merly Vitale 02/21/2024 1 [facility] [id number] Charlse Vitale [id number] Merly Vitale 02/29/2024 1 [facility] [id number] Charles Vitale [id number] Merly Vitale Notes Date Note Type Note Provider Name and Address Organization Details Recorded Time 02/21/2024 text/html This patient is a 23-year-old female with amenorrhea and a positive test. She possibly has a very early gestation. Ultrasound did not reveal an intrauterine gestational sac. There may be a pseudo sac forming. There is a worrisome lesion in the right adnexa. Worrisome for ectopic . I discussed all these findings with the patient. We discussed observation and serial HCGs. Discussed future ultrasound. Discussed precautions for pain. Spent over 20 minutes syni-oe-sewo. More than 50% was counseling. We will perform serial HCGs. We will follow up with her after the 2nd set. Abdulaziz Benedict MD [address], [place], [address], [facility] 02/21/2024 22:41:54 OBGyn Episode No OBEpisode recorded.
--- OUTSIDE RECORDS SUMMARY | 2025-02-16 05:44 | XMS_ITS | Encounter Summary ---
Author Organization [facility] Address [address] [place] [address] Care Team Providers Care Material Hauler Name Role Phone Hilda Del Rio MD Primary Care Provider [phone] Encounter Details Date Type Department Care Team (Late st Contact Info) Description 06/03/2007 Outpatient Historical [facility] Gomez Car MD [address] 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
--- OUTSIDE RECORDS SUMMARY | 2025-02-16 05:44 | XMS_ITS | Encounter Summary ---
Author Organization [facility] Address [address] [place] [address] Phone Care Team Providers Care Financial Aid Director Name Role Phone Ruperto [place] MD Primary Care Provider [phone] Provider, None Primary Care Provider Unavailabl e Provider, None Primary Care Provider Unavailabl e Encounter Details Date Type Department Care Team (Late st Contact Info) Description 09/22/2023 Lab Requisition [facility] [address] [place] [address] Steve Del Cid, PAC [address] [place] [address] Encounter for pre-employment examination Social [...] QUANTIFERON-TB GOLD PLUS Routine 09/22/2023 10:50 AM MEDICAL RADIATION TECH Encounter for pre-employment examination documented in this encounter Results * QUANTIFERON-TB GOLD PLUS (09/22/2023 10:50 AM MEDICAL RADIATION TECH) NIL CONTROL 0.00 <8.01 IU/mL 09/24/2023 10:22 AM [facility] TB ANTIGEN 1 0.04 <0.35 IU/mL 09/24/2023 10:22 AM [facility] TB ANTIGEN 2 0.00 <0.35 IU/mL 09/24/2023 10:22 AM [facility] MITOGEN CONTROL 10.00 >0.49 IU/mL 09/24/20 10:22 AM [facility] INTEPRETATION TB NEGATIVE NEGATIVE, NEGATIVE (TB antigen response less than 25% of internal negative control value) 09/24/2023 10:22 AM [facility] Comment:No immune response t o Mycobacterium tuberculosis antigens was noted. M. tuberculosis infection unlikely. Blood No Phlebotomy Charged / Unknown 09/22/2023 10:50 AM MEDICAL RADIATION TECH 09/22/2023 12:21 PM [facility] - 09/24/2023 10:22 AM [facility] A POSITIVE QUANTIFERON-TB GOLD PLUS [...] immunocompromised individuals. https://www.cdc.gov/tb/publications/guidelines/testing.htm us Steve Del Cid [facility] IMMUNOLOGY ORDERABLES Final Result [facility] [address] [place] [address], documented in this encounter Visit Diagnoses Diagnosis Encounter for pre-employment examination Health examination of defined subpopulation documented in this encounter Additional Health Concerns Infection Onset Date Last Indicated Resolved Time COVID - 19 08/21/2024 08/21/2024 08/21/2024 10:3 0 AM MEDICAL RADIATION TECH COVID - 19 09/18/2024 09/18/2024 09/18/2024 6:53 PM MEDICAL RADIATION TECH documented as of this encounter Care Teams Financial Aid Director Relationship Specialty Start Date End Date Ruperto [place] MD [facility] [place] [address] PCP - General Internal Medicine 05/18/23 12/12/23 Provider, None [place] PCP - General 12/13/23 09/17/24 Provider, None [place] PCP - General 09/18/24 documented as of this encounter
--- OUTSIDE RECORDS SUMMARY | 2025-02-16 05:44 | XMS_ITS | Encounter Summary ---
Author Organization [facility] Address [address] [place] [address] Care Team Providers Care 3Rd Mate Name Role Phone Hilda Del Rio MD Primary Care Provider [phone] Encounter Details Date Type Department Care Team (Late st Contact Info) Description 05/02/2007 Outpatient Historical [facility] [address] [address] Gomez Car MD 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
--- OUTSIDE RECORDS SUMMARY | 2025-02-16 05:45 | XMS_ITS | Encounter Summary ---
Author Organization [facility] Address [address] [place] [address] Care Team Providers Care Carroting Machine Operator Name Role Phone Maya Uriostegui NP Primary Care Provider [phone] Encounter Details Date Type Department Care Team (Late st Contact Info) Description 02/09/2025 Results Follow-Up [facility] Primary Care at [address] [address] Maya Uriostegui NP [address] [place] [address] [address] [place] [address] Social History Tobacco Use Types [...] often do you attend chur ch or quaker services? 1 to 4 times per year 09/25/2024 Do you belong to any clubs o r organizations such as samaritan groups, unions, fraternal or athletic groups, or [...] things needed for daily living? 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
--- OUTSIDE RECORDS SUMMARY | 2025-02-16 05:45 | XMS_ITS | Clinical Summary ---
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 The only legally accepted results are from culture. Results cannot be used to assess therapeutic success or failure since nucleic acids may persist following antimicrobial therapy. This test was developed and its performance characteristics determined by [facility]. It has not been cleared by [...] Chavira MD URINE ORDERABLES COM Final Result [facility] CLIA# [id number] [address] [id number] from Last 3 Months or Most Recently Relevant to Health Maintenance Insurance RX [employer] RX Member Subscriber Plan / Payer (Ef fective for All Dates) Name:Merly Abad Relation to Subscriber:Child Name:Merly Abad Payer ID:Not on file Group ID:[facility] Type:RX Commercial Address: [address] [employer] (INTERNAL) [facility] [employer] [place] [id number] [place] [address] Advance Directives For more information, please contact: [phone] * Full Code (Latest Code Status on File) Date Activated Date Inactivated Comments 06/23/2017 4:13 PM 06/29/2017 4:14 PM * Full Code Date Activated Date Inactivated Comments 06/09/2017 12:12 PM 06/16/2017 7:12 PM * Full Code Date Activated Date Inactivated Comments 04/08/2017 9:30 PM 04/14/2017 6:41 PM Care Teams Chair Installer Relationship Specialty Start Date End Date Hilda Del Rio MD PCP - General Pediatrics 09/17/13
--- OUTSIDE RECORDS SUMMARY | 2025-02-16 05:45 | XMS_ITS | Encounter Summary ---
Author Organization [facility] Healthcare Address [address] [place] [address] Care Team Providers Care Line Maintainer Section Name Role Phone No, Physician Primary Care Provider [phone] Maya Uriostegui NP Primary Care Provider [phone] Encounter Details Date Type Department Care Team (Late st Contact Info) Description 12/23/2024 Results Follow-Up [facility] Medical Group Convenient Care at [place] [address] [place] [phone] Eloisa Carr, ROGER [address] [facility] [address] [place] [address] Social History Tobacco Use Types [...] often do you attend chur ch or nondenominational services? 1 to 4 times per year [...] things needed for daily living? No 09/25/2024 [place] Depression Scale Answer Date Recorded [place] Depression Scale Total 11 11/07/2024 The thought [...] any time in the past 12 m [facility], were you homeless or living in a care home (including now)? No 09/25/2024 Personal Safety Answer Date Recorded Have you ever been in or are you currently in a harmful physical or emotional relationship or is someone making you feel afraid or unsafe? 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
--- OUTSIDE RECORDS SUMMARY | 2025-02-16 05:45 | XMS_ITS | Referral Summary ---
Author Organization [facility] Address [address] [place] [address] Care Team Providers Care Piper Helper Name Role Phone Maya Uriostegui NP Primary Care Provider [phone] Encounters Date Type Department Care Team Description 02/09/2025 Results Follow-Up [facility] Medical Group Primary Care at [address] [address] Maya Uriostegui NP 02/08/[address] [address] 02/05/2025 4:17 PM CDT - 02/05/2025 11:59 PM CDT Hospital Encounter [address] [address] Wellness examination; Dizziness; Near syncope; Screening, lipid Discharge Disposition: Discharge to home or self care 02/05/2025 4:15 PM CDT Lab [facility] Medical Group Outpatient Lab at [address] [phone] Wellness examination (Primary Dx) 02/05/[address] [address] 02/05/2025 3:30 PM CDT Office Visit [facility] Medical Group Primary Care at [address] [address] Maya Uriostegui NP BMI 20.0-20.9, adult (Primary Dx); Wellness examination; Dizziness; Near syncope; Screening, lipid; Anxiety 01/26/2025 Encounter [place] [address] [place] [address] 01/20/2025 Encounter [address] [place] [address] 01/09/2025 Encounter [address] [address] [place] [address] 12/31/2024 Encounter [place] [address] [place] [address] 12/23/[address] [place] [address] 12/23/2024 Results Follow-Up [facility] Medical Group Convenient Care at [place] [address] [place] [address] Eloisa Carr NP 12/21/2024 10:19 AM CDT - 12/21/2024 11:59 PM CDT Hospital Encounter [address] [address] Sore throat Discharge Disposition: Discharge to home or self care 12/21/2024 9:00 AM CDT Office Visit [facility] Medical [facility] Convenient Care at [place] [address] [place] [place] [address] Sapphire Laws NP Allergic rhinitis, unspecified seasonality, unspecified trigger (Primary Dx); Sore throat 12/17/2024 Encounter [place] [address] [address] [place] [address] 12/10/2024 Encounter [place] [address] [address] [place] [address] 12/05/[address] [address] 11/26/[address] [place] [address] from Last 3 Months Allergies Active Allergy [...] 05/12/2023 Assessment & Plan (09/10/2023 10:29 AM MEDICINE TECHNOLOGIST): Discussed nature of ovarian cyst. Patient aware to help manage/decrease occurrence of ovarian cyst a low-dose oral combined contraceptive pill is often therapeutic. Patient does not desire to be on a form of hormonal control at this time. Can use osrn-fzv-[id number] NSAIDs for pain relief if needed. Assessment [...] carried 03/05 in house: R1 (first call) [phone] R1 alt (second call) [phone] R4 (Chief) [phone] Poor growth affecting management of mother in second trimester 07/31/2024 11/07/2024 Overview (09/11/2024): EFW 9%, AC 7%, PI diamante S/p counseling 08/14/2024 PI elevated- >99% 08/22/2024 PI 91% 09/11/2024 EFW 4%, AC 3%, PI >99% Plan: Continue q3 week growth US Weekly dopplers with BPP Weekly NSTs Delivery currently scheduled for 37w [facility] precautions reviewed Assessment & Plan (09/04/2024 10:19 AM MEDICINE TECHNOLOGIST): PI diamante, BPP 05/18, [facility] precautions reviewed Assessment & Plan (07/31/2024 11:48 AM CDT): Reviewed increased risk of stillbirth with FGR and importance of weekly dopplers and 2x/weekly testing. [facility] precautions reviewed. Maternal varicella, non-immune 06/14/2024 11/07/2024 Overview (06/14/2024): For Varivax pp Supervision of high-risk pre gnancy, unspecified trimester 05/17/2024 11/07/2024 Overview (09/21/2024): [x] Full [facility] Care; [x] Blue Team Referring Provider: [...] 2/2 elevated dopplers [x] Place of delivery: [facility] [x] Epidural: likely desires but has questions- anesthesia consult placed [x] Blood Products: willing to accept [x] MOC: s/p counseling and pt declines and plans for condoms [x] Method of feeding: breast [x] Environmental Sampling Technician: discussed, handouts previously provided [x] PP Depression Discussed: Assessment & Plan (09/11/2024 11:20 AM MEDICINE TECHNOLOGIST): Discussed that the plan could change at [...] week 09/25/2024 How often do you attend [facility] or mormon services? 1 to 4 times per year [...] things needed for daily living? No 09/25/2024 Troy Depression Scale Answer Date Recorded [place] Depression Scale Total 11 11/07/2024 The thought [...] any time in the past 12 m [facility], were you homeless or living in a senior care (including now)? No 09/25/2024 Personal Safety Answer Date Recorded Have you ever been in or are you currently in a harmful physical or emotional relationship or is someone making you feel afraid or unsafe? Denies 09/23/2024 Comments No Sex and Gender Information Value Date Recorded Sex Assigned at Not on file Legal Sex Female 11:28 PM MEDICINE TECHNOLOGIST Gender Identity Not on file Sexual Orientation [...] on file Medical Devices Implanted Type Area Rubber Curer Device Identifier Shelf Expiration Date Model / [...] GONORRHOEAE/C. TRACHOMATIS AMPLIFICATION Routine 08/24/2024 1:38 PM MEDICINE TECHNOLOGIST Supervision of high-risk , unspecified trimester HEPATITIS [...] LAB BLOOD ORDERABLES Final Re sult ASHLEY [address] Department [place] [address] * Differential, auto (02/05/2025 4:17 PM CDT) Neutrophil abs 3.27 1.50 - 6.50 K/cumm Imm gran abs 0.01 0.00 - 0.10 K/cumm [facility] Lymphocyte abs 2.31 0.80 - 3.30 K/cumm [facility] Monocyte abs 0.42 0.20 - 0.80 K/cumm [facility] Eosinophil abs 0.10 0.00 - 0.50 K/cumm [facility] Basophil abs 0.03 0.00 - 0.10 K/cumm [facility] Neutrophil pct 53.3 % [facility] Comment: Interpretive Data Percent cell count [...] revised on 2018. Eosinophil pct 1.6 % [facility] Comment: Interpretive Data Percent cell count reference ranges are not reported, since discordance with absolute values may lead to misinterpretation of CBC data. Current Interpretive Data was last revised on 2018. Basophil pct 0.5 % [facility] Comment: Interpretive Data Percent cell count reference ranges are not reported, since discordance with absolute values may lead to misinterpretation of CBC data. Current Interpretive Data was last revised on 2018. Blood 02/05/2025 4:17 PM CDT 02/05/2025 9:35 PM CDT Maya Uriostegui BIOMETRIC TECHNICIAN LAB BLOOD ORDERABLES Final Re sult Performing Organization Address [place] de Phone Number [facility] [address] [place] [address] * Thyroid Function [place] (02/05/2025 4:17 PM CDT) TSH 1.85 0.30 - 4.20 mcIUnit/mL Blood 02/05/2025 4:17 PM CDT 02/05/2025 9:35 PM CDT Mayatiffanie Uriostegui BIOMETRIC TECHNICIAN LAB BLOOD ORDERABLES Final Re sult Performing Organization Address [place] de Phone Number [place] [address] [place] [address] * (ABNORMAL) Iron profile w/ IBC (02/05/2025 4:17 PM CDT) Iron 56 35 - 145 mcg/dl TIBC 313 250 - 400 mcg/dL [facility] Transferrin saturation 18(L) 20 - 50 % [facility] Blood 02/05/2025 4:17 PM CDT 02/05/2025 9:35 PM CDT Maya Uriostegui BIOMETRIC TECHNICIAN LAB BLOOD ORDERABLES Final Re sult Performing Organization Address [facility]/ZIP Co de Phone Number ASHLEY [address] [place] [address] * (ABNORMAL) CBC with auto differential (02/05/2025 4:17 PM CDT) Pathologist [facility] WBC 6.14 3.80 - 9.90 K/cumm Hgb 13.2 11.9 - 15.5 g/dL [facility] CH Hct 41.1 35.6 - 45.5 % [facility] CH Plt 247 150 - 400 K/cumm [facility] CH MPV 10.5 9.1 - 12.3 fL [facility] CH RBC 4.57 3.90 - 5.20 M/cumm [facility] CH MCV 89.9 81.3 - 96.4 fL [facility] CH MCH 28.9 27.1 - 33.3 pg [facility] MCHC 32.1(L) 32.3 - 35.7 g/dL [facility] CH RDW CV 12.6 11.1 - 14.9 % [facility] CH RDW SD 41.4 35.7 - 48.1 fL [facility] CH NRBC abs 0.00 0.00 - 0.01 K/cumm [facility] CH Blood 02/05/2025 4:17 PM CDT 02/05/2025 9:35 PM CDT Maya Uriostegui BIOMETRIC TECHNICIAN LAB BLOOD ORDERABLES Final Re sult ASHLEY [address] [place] [address] * Vitamin D 25 hydroxy (02/05/2025 4:17 PM CDT) Pathologist [facility] Vitamin D 25-OH 37 30 - 80 ng/mL Blood 02/05/2025 4:17 PM CDT 02/05/2025 9:35 PM CDT Maya Uriostegui BIOMETRIC TECHNICIAN LAB BLOOD ORDERABLES Final Re sult Performing Organization Address [place] Co de Phone Number ASHLEY AMEZCUA [address] [facility] [place] [address] * Folate (02/05/2025 4:17 PM CDT) Pathologist [facility] Folic acid >20.0 >=5.0 ng/mL Comment:Hemolysis present. R esults may be affected. Blood 02/05/2025 4:17 PM CDT 02/05/2025 9:35 PM CDT Maya Uriostegui BIOMETRIC TECHNICIAN LAB BLOOD ORDERABLES Final Re sult Performing Organization Address [facility] Co de Phone Number ASHLEY AMEZCUA [address] [place] [place] [address] * Ferritin (02/05/2025 4:17 PM CDT) [facility] Ferritin 39 15 - 150 ng/mL Blood 02/05/2025 4:17 PM CDT 02/05/2025 9:35 PM CDT Maya Uriostegui BIOMETRIC TECHNICIAN LAB BLOOD ORDERABLES Final Re sult Performing Organization Address [place] Co de Phone Number ASHLEY AMEZCUA [address] [place] [address] * Vitamin B12 (02/05/2025 4:17 PM CDT) [facility] Vitamin B12 637 230 - 1,250 pg/mL Blood 02/05/2025 4:17 PM CDT 02/05/2025 9:35 PM CDT Maya Uriostegui BIOMETRIC TECHNICIAN LAB BLOOD ORDERABLES Final Re sult Performing Organization Address [place] Co de Phone Number ASHLEY AMEZCUA [address] [place] [address] * Lipid panel (02/05/2025 4:17 PM CDT) [...] LAB BLOOD ORDERABLES Final Re sult ASHLEY [address] Department [place] [address] * (ABNORMAL) Comprehensive metabolic panel (02/05/2025 4:17 [...] 02/05/2025 9:35 PM CDT us Maya Uriostegui BIOMETRIC TECHNICIAN LAB BLOOD ORDERABLES Final Re sult [facility] [address] [place] [address] * Throat culture Throat (12/21/2024 10:19 AM CDT) Report Final Report: No growth of pathogens. Comment:Testing performed by : [facility], [address] [facility], [place]., [address] Throat 12/21/2024 10:1 9 AM CDT 12/21/2024 10:56 PM CDT Narrative [facility] - 12/22/2024 10:04 PM CDT Testing performed by [facility] Microbiology Laboratory ([phone]). Sapphire Laws NP LAB MICROBIOLOGY - GENERAL ORD ERABLES Final Result ASHLEY AMEZCUA [address] Department [place] [address] * POCT rapid strep A (12/21/2024 9:51 AM CDT) [facility] Rapid Strep A, POC Negative Negative Swab 12/21/2024 9:51 AM CDT Sapphire Laws BIOMETRIC TECHNICIAN POINT OF CARE TEST ORDERABLES Final Result * N. gonorrhoeae/C. trachomatis Amplification Urine (08/24/2024 1:38 PM MEDICINE TECHNOLOGIST) [facility] C. trachomatis Not Detected [facility] N. gonorrhoeae Not Detected ASHLEY [facility] Comment: Interpretive Data This assay detects Chlamydia trachomatis and Neisseria gonorrhoeae by nucleic acid amplification testing (NAAT). This assay has been cleared by the [place] Food and Drug administration. The performance characteristics of this test have been verified by the [facility] Molecular Infectious Disease laboratory. The performance characteristics of this test have not been evaluated in individuals less than 14 years of age. Current Interpretive Data was last revised on 2023. Urine (None) 08/24/2024 1:38 PM MEDICINE TECHNOLOGIST 08/24/2024 2:19 PM MEDICINE TECHNOLOGIST Renita Chong NP LAB MICROBIOLOGY - GENERAL ORDERABLES Final Result ASHLEY [facility] [address] [facility] Department [place] [address] [facility] * Hepatitis C antibody Blood (07/31/2024 10:20 AM CDT) [facility] Hep C Ab Nonreactive Nonreactive Comment:Antibodies to HCV no t detected. Does NOT exclude the possibility of recent exposure to HCV. Current interpretive data was last revised on 22 Blood 07/31/2024 10:2 0 AM CDT 07/31/2024 11:35 AM CDT Renita Chong BIOMETRIC TECHNICIAN LAB MICROBIOLOGY - GENERAL ORDERABLES Final Result ASHLEY THOMAS [address] [facility] Department [place] [address] * Pap with reflex to High Risk HPV (03/19/2023 11:54 AM CDT) CLINICAL INFORMATION: Sis Arana Comment:Routine exam LMP Sis Arana Comment:[id number] Previous Pap Sis Arana Comment:NONE GIVEN Prev. Bx Sis Arana Comment:CE SOURCE: Sis Arana Comment:Cervix, Endocervix Pap, specimen adequacy Sis Arana Comment: Satisfactory for evaluation. Endocervical/transformation zone component present. HPV interp Sis Arana Comment:Negative for intraep ithelial lesion or malignancy. COMMENTS Sis Arana Comment: This Pap test has been evaluated with computer assisted technology. Ecommerce Marketing Specialist Rui Guzman Comment: JAF, CT(ASCP) CT Screening Location: [place] [address] [place] [address] Review emergency department rn Sis Arana Comment: DDS, CT(ASCP) CT screening location: [place] [address] [place] [address] Comment Sis Arana Comment: EXPLANATORY NOTE: The [...] 03/22/2023 6:46 AM CDT us Annabella Peralta BIOMETRIC TECHNICIAN LAB CYTOLOGY ORDERABLES Final Re sult [facility] Organization Address City/State/ZIP Co de Phone Number [facility] [address] [place] [address] from Last 3 Months or Most Recently Relevant to Health Maintenance Insurance [employer] [facility] [employer] [facility] [facility] [employer] Advance Directives For more information, please contact: [phone] * Full Code (Latest Code Status on File) Date Activated Date Inactivated Comments 09/24/2024 2:46 AM 09/26/2024 7:22 PM * Full Code Date Activated Date Inactivated Comments 09/23/2024 11:02 AM 09/24/2024 2:46 AM Full CPR in case of cardiopulmonary arrest Care Teams Piper Helper Relationship Specialty Start Date End Date Maya Uriostegui NP [address] [address] PCP - General Internal Medicine 02/05/25
--- OUTSIDE RECORDS SUMMARY | 2025-02-16 05:45 | XMS_ITS | Encounter Summary ---
Author Organization [facility] Address [address] [place] [address] Phone Care Team Providers Care Senior Consultant Name Role Phone Hilda Del Rio MD Primary Care Pro vider Donna Chaudhary MD Primary Care Provider Ruperto Sotvall MD Primary Care Provider + No, Physician Primary Care Provider [phone] Maya Uriostegui NP Primary Care Provider [phone] Encounter Details Date Type Department Care Team (Late st Contact Info) Description 12/13/2018 Ophth Exam [facility] Ophthalmology [address] [place] [address] 1st [place] [id number] Christine Miles MD PhD [address] [id number] Social History Tobacco Use Types Packs/Day Years Used Date Smoking Tobacco: Never Smokeless Tobacco: Never Alcohol Use Standard Drinks/Week Comments No 0 (1 standard drink = 0.6 oz pur e alcohol) Comments No Sex and Gender Information Value Date Recorded Sex Assigned at Not on file Legal Sex Female 11:28 PM 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 No le caryn. Care Teams Senior Consultant Relationship Specialty Start Date End Date Hilda Del Rio MD PCP - General 01/20/12 07/26/19 Donna Chaudhary MD PCP - General Pediatrics 07/27/19 10/20/21 Ruperto Stovall MD [address] [facility] [place] [address] PCP - General Internal Medicine 10/21/21 06/06/24 No, Physician PCP - General 06/07/24 02/04/25 Maya Uriostegui NP [address] [address] PCP - General Internal Medicine 02/05/25 documented as of this encounter
--- OUTSIDE RECORDS SUMMARY | 2025-02-16 05:45 | XMS_ITS | Clinical Summary ---
Author Organization [facility] Address [address] [place] [address] Phone Care Team Providers Care Painter Touch Up Name Role Phone Provider, None Primary Care [...] Comments Blood Pressure 123/81 09/19/2024 12:11 AM PASTRY MIXER Pulse 100 09/19/2024 12:11 AM PASTRY MIXER Temperature 36.9 C (98.4 F) 09/18/2024 5:49 PM PASTRY MIXER Respiratory Rate 18 09/19/2024 12:11 AM PASTRY MIXER Oxygen Saturation 100% 09/19/2024 12:11 AM PASTRY MIXER Inhaled Oxygen Concentration - - Weight 59.9 kg (132 lb) 09/18/2024 5:49 PM PASTRY MIXER Height 157.5 cm (5' 2 ) 09/18/2024 5:49 PM PASTRY MIXER Body Mass Index 24.14 09/18/2024 5:49 PM PASTRY MIXER Plan of Treatment Health Maintenance Due Date [...] Date of Phone Billing Address Institutional Other [address] [place] [address] Care Teams Painter Touch Up Relationship Specialty Start Date End Date Provider, None [place] PCP - General 09/18/24
--- OUTSIDE RECORDS SUMMARY | 2025-02-16 05:45 | XMS_ITS | Clinical Summary ---
Author Organization [facility] Address [address] [place] [address] Care Team Providers Care Card Boxer Name Role Phone Maya Uriostegui NP Primary Care Provider [phone] Allergies Active Allergy Reactions Criticality Noted Date [...] 05/12/2023 Assessment & Plan (09/10/2023 10:29 AM FLOOR COVERING PRINTER ASSISTANT): Discussed nature of ovarian cyst. Patient aware to help manage/decrease occurrence of ovarian cyst a low-dose oral combined contraceptive pill is often therapeutic. Patient does not desire to be on a form of hormonal control at this time. Can use [id number] NSAIDs for pain relief if needed. Assessment [...] carried 03/05 in house: R1 (first call) [phone] R1 alt (second call) [phone] R4 (Chief) [phone] Poor growth affecting management of mother in second trimester 07/31/2024 11/07/2024 Overview (09/11/2024): EFW 9%, AC 7%, PI wnl S/p counseling 08/14/2024 PI elevated- >99% 08/22/2024 PI 91% 09/11/2024 EFW 4%, AC 3%, PI >99% Plan: Continue q3 week growth US Weekly dopplers with BPP Weekly NSTs Delivery currently scheduled for 37w [facility] precautions reviewed Assessment & Plan (09/04/2024 10:19 AM FLOOR COVERING PRINTER ASSISTANT): PI wnl, BPP 05/18, [facility] precautions reviewed Assessment & Plan (07/31/2024 11:48 AM CDT): Reviewed increased risk of stillbirth with FGR and importance of weekly dopplers and 2x/weekly testing. [facility] precautions reviewed. Maternal varicella, non-immune 06/14/2024 11/07/2024 Overview (06/14/2024): For Varivax pp Supervision of high-risk pre gnancy, unspecified trimester 05/17/2024 11/07/2024 Overview (09/21/2024): [x] Full M Care; [x] Blue Team Referring Provider: Danieilto White [] or Medicare Insurance [x] Dating [...] 2/2 elevated dopplers [x] Place of delivery: [facility] [x] Epidural: likely desires but has questions- anesthesia consult placed [x] Blood Products: willing to accept [x] MOC: s/p counseling and pt declines and plans for condoms [x] Method of feeding: breast [x] Economic Geographer: discussed, handouts previously provided [x] PP Depression Discussed: Assessment & Plan (09/11/2024 11:20 AM FLOOR COVERING PRINTER ASSISTANT): Discussed that the plan could change at [...] weeks [x] 2x/weekly testing 2/2 FGR [x] [facility] consultation [x] IOL [...] Department Care Team Description 02/09/2025 Results Follow-Up [facility] Primary Care at [address] [address] Maya Uriostegui NP 02/08/[address] [address] 02/05/2025 4:17 PM CDT - 02/05/2025 11:59 PM CDT Hospital Encounter [address] [address] Wellness examination; Dizziness; Near syncope; Screening, lipid Discharge Disposition: Discharge to home or self care 02/05/2025 4:15 PM CDT Lab [facility] Group Outpatient Lab at [address] [address] Wellness examination (Primary Dx) 02/05/2025 3:30 PM CDT Office Visit [facility] Primary Care at [address] [address] Maya Uriostegui NP BMI 20.0-20.9, adult (Primary Dx); Wellness examination; Dizziness; Near syncope; Screening, lipid; Anxiety 02/05/[address] [address] 01/26/[address] [address] 01/20/[address] [place] [address] 01/09/2025 Encounter [place] [address] [place] [address] 12/31/[address] [address] 12/23/[address] [address] 12/23/2024 Results Follow-Up [facility] [address] [place] [address] Eloisa Carr NP 12/21/2024 10:19 AM CDT - 12/21/2024 11:59 PM CDT Hospital Encounter [address] [address] Sore throat Discharge Disposition: Discharge to home or self care 12/21/2024 9:00 AM CDT Office Visit [facility] [address] [place] [address] Sapphire Laws NP Allergic rhinitis, unspecified seasonality, unspecified trigger (Primary Dx); Sore throat 12/17/[address] [address] 12/10/2024 Encounter [address] [address] [place] [address] 12/05/2024 Encounter [address] [address] [place] [address] 11/26/[address] [address] from Last 3 Months Immunizations Immunization Administration [...] often do you attend chur ch or faith services? 1 to 4 times per year 09/25/2024 Do you belong to any clubs o r organizations such as baptist groups, unions, fraternal or athletic groups, or [...] things needed for daily living? No 09/25/2024 Irvine Depression Scale Answer Date Recorded [place] Depression Scale Total 11 11/07/2024 The thought [...] any time in the past 12 m [facility], were you homeless or living in a fdc (including now)? No 09/25/2024 Personal Safety Answer Date Recorded Have you ever been in or are you currently in a harmful physical or emotional relationship or is someone making you feel afraid or unsafe? Denies 09/23/2024 Comments No Sex and Gender Information Value Date Recorded Sex Assigned at Not on file Legal Sex Female 11:28 PM FLOOR COVERING PRINTER ASSISTANT Gender Identity Not on file Sexual Orientation [...] J Dannb Mini Diego MD Complications:None Delivery Location:[facility] ([facility] 58LD) Last Filed Vital Signs Vital Sign [...] Completed 07/31/2024 Medical Devices Implanted Type Area Summer Clerk Device Identifier Shelf Expiration Date Model / [...] GONORRHOEAE/C. TRACHOMATIS AMPLIFICATION Routine 08/24/2024 1:38 PM FLOOR COVERING PRINTER ASSISTANT Supervision of high-risk , unspecified trimester HEPATITIS [...] NP LAB BLOOD ORDERABLES Final Re sult [facility] [address] [place] [address] * Differential, auto (02/05/2025 4:17 PM CDT) Neutrophil abs 3.27 1.50 - 6.50 K/cumm Imm gran abs 0.01 0.00 - 0.10 K/cumm [facility] Lymphocyte abs 2.31 0.80 - 3.30 K/cumm [facility] Monocyte abs 0.42 0.20 - 0.80 K/cumm [facility] Eosinophil abs 0.10 0.00 - 0.50 K/cumm [facility] Basophil abs 0.03 0.00 - 0.10 K/cumm [facility] Neutrophil pct 53.3 % [facility] Comment: Interpretive Data Percent cell count reference ranges are not reported, since discordance with absolute values may lead to misinterpretation of CBC data. Current Interpretive Data was last revised on 2018. Imm gran pct 0.2 % [facility] Comment: Interpretive Data Percent cell count reference ranges are not reported, since discordance with absolute values may lead to misinterpretation of CBC data. Current Interpretive Data was last revised on 2018. Lymphocyte pct 37.6 % [facility] Comment: Interpretive Data Percent cell count [...] 4:17 PM CDT 02/05/2025 9:35 PM CDT [employer] ROUNDING AND BACKING MACHINE OPERATOR LAB BLOOD ORDERABLES Final Re sult Performing Organization Address [facility]/ZIP Co de Phone Number ASHLEY SEVEN [address] [employer] [place], [place] [id number] * Thyroid Function [place] (02/05/2025 4:17 PM CDT) TSH 1.85 0.30 - 4.20 mcIUnit/mL Blood 02/05/2025 4:17 PM CDT 02/05/2025 9:35 PM CDT [employer] ROUNDING AND BACKING MACHINE OPERATOR LAB BLOOD ORDERABLES Final Re sult Performing Organization Address [facility]/ZIP Co de Phone Number KALPANASANTIAGO AMZECUA [address] [place] [address] * (ABNORMAL) Iron profile w/ IBC (02/05/2025 4:17 PM CDT) Iron 56 35 - 145 mcg/dl TIBC 313 250 - 400 mcg/dL CERNER [facility] Transferrin saturation 18(L) 20 - 50 % [facility] Blood 02/05/2025 4:17 PM CDT 02/05/2025 9:35 PM CDT Maya Uriostegui ROUNDING AND BACKING MACHINE OPERATOR LAB BLOOD ORDERABLES Final Re sult Performing Organization Address City/[facility]/ZIP Co de Phone Number ASHLEY AMEZCUA [address] [place] [address] * (ABNORMAL) CBC with auto [...] CDT 02/05/2025 9:35 PM CDT Maya Uriostegui ROUNDING AND BACKING MACHINE OPERATOR LAB BLOOD ORDERABLES Final Re sult Performing Organization Address City/[facility]/ZIP Co de Phone Number ASHLEY AMEZCUA [address] [place] [address] * Vitamin D 25 hydroxy (02/05/2025 4:17 PM CDT) Vitamin D 25-OH 37 30 - 80 ng/mL Blood 02/05/2025 4:17 PM CDT 02/05/2025 9:35 PM CDT us Maya Uriostegui ROUNDING AND BACKING MACHINE OPERATOR LAB BLOOD ORDERABLES Final Re sult Performing Organization Address [facility] Co de Phone Number ASHLYE AMEZCUA [address] [address] [facility] [place] [address] * Folate (02/05/2025 4:17 PM CDT) Folic acid >20.0 >=5.0 ng/mL Comment:Hemolysis present. R esults may be affected. Blood 02/05/2025 4:17 PM CDT 02/05/2025 9:35 PM CDT us Maya Uriostegui ROUNDING AND BACKING MACHINE OPERATOR LAB BLOOD ORDERABLES Final Re sult Performing Organization Address [facility] Co de Phone Number KALPANASANTIAGO AMEZCUA [address] [place] [address] * Ferritin (02/05/2025 4:17 PM CDT) Ferritin 39 15 - 150 ng/mL Blood 02/05/2025 4:17 PM CDT 02/05/2025 9:35 PM CDT us Maya Uriostegui ROUNDING AND BACKING MACHINE OPERATOR LAB BLOOD ORDERABLES Final Re sult Performing Organization Address [facility] Co de Phone Number KALPANASANTIAGO [address] [place] [address] * Vitamin B12 (02/05/2025 4:17 PM CDT) Vitamin B12 637 230 - 1,250 pg/mL Blood 02/05/2025 4:17 PM CDT 02/05/2025 9:35 PM CDT us Maya Uriostegui ROUNDING AND BACKING MACHINE OPERATOR LAB BLOOD ORDERABLES Final Re sult Performing Organization Address [facility] Co de Phone Number ASHLEY AMEZCUA [address] [place] [address] * Lipid panel (02/05/2025 4:17 PM CDT) [...] BLOOD ORDERABLES Final Re sult ASHLEY AMEZCUA [address] [place] [address] * (ABNORMAL) Comprehensive metabolic panel [...] CDT 02/05/2025 9:35 PM CDT Maya Uriostegui ROUNDING AND BACKING MACHINE OPERATOR LAB BLOOD ORDERABLES Final Re sult [facility] [address] [place] [address] * Throat culture Throat (12/21/2024 10:19 AM CDT) Report Final Report: No growth of pathogens. Comment:Testing performed by : [facility], [address], [place]., [address] Throat 12/21/2024 10:1 9 AM CDT 12/21/2024 10:56 PM CDT Narrative ASHLEY - 12/22/2024 10:04 PM CDT Testing performed by [facility] Microbiology Laboratory ([phone]). Result [facility] Sapphire Laws NP LAB MICROBIOLOGY - GENERAL ORD ERABLES Final Result [facility] [address] [facility] [place] [address] * POCT rapid strep A (12/21/2024 9:51 AM CDT) Rapid Strep A, POC Negative Negative Swab 12/21/2024 9:51 AM CDT Result [facility] Sapphire Laws NP POINT OF CARE TEST ORDERABLES Final Result * N. gonorrhoeae/C. trachomatis Amplification Urine (08/24/2024 1:38 PM FLOOR COVERING PRINTER ASSISTANT) [facility] C. trachomatis Not Detected [facility] N. gonorrhoeae Not Detected [facility] Comment: Interpretive Data This assay detects Chlamydia trachomatis and Neisseria gonorrhoeae by nucleic acid amplification testing (NAAT). This assay has been cleared by the [place] Food and Drug administration. The performance characteristics of this test have been verified by the [facility] Molecular Infectious Disease laboratory. The performance characteristics of this test have not been evaluated in individuals less than 14 years of age. Current Interpretive Data was last revised on 2023. Urine (None) 08/24/2024 1:38 PM FLOOR COVERING PRINTER ASSISTANT 08/24/2024 2:19 PM FLOOR COVERING PRINTER ASSISTANT Result [facility] Renita Chong NP LAB MICROBIOLOGY - GENERAL ORDERABLES Final Result ASHLEY [facility] [address] [facility] [place] [address] [facility] * Hepatitis C antibody Blood (07/31/2024 10:20 AM CDT) Hep C Ab Nonreactive Nonreactive Comment:Antibodies to HCV no t detected. Does NOT exclude the possibility of recent exposure to HCV. Current interpretive data was last revised on 22 Blood 07/31/2024 10:2 0 AM CDT 07/31/2024 11:35 AM CDT Renita Chong NP LAB MICROBIOLOGY - GENERAL ORDERABLES Final Result ASHLEY THOMAS [facility] [place] [address] * Pap with reflex to High Risk HPV (03/19/2023 11:54 AM CDT) CLINICAL INFORMATION: Sis Arana Comment:Routine exam LMP Sis Arana Comment:[id number] Previous Pap Sis Arana Comment:NONE GIVEN Prev. Bx Sis Arana Comment:CE SOURCE: Sis Arana Comment:Cervix, Endocervix Pap, specimen adequacy Sis Arana Comment: Satisfactory for evaluation. Endocervical/transformation zone component present. HPV interp Sis Arana Comment:Negative for intraep ithelial lesion or malignancy. COMMENTS Sis Arana Comment: This Pap test has been evaluated with computer assisted technology. Taxi Dancer Rui Guzman Comment: JAF, CT(ASCP) CT Screening Location: [place] [address] [address] [address] Review surveying teacher Sis Arana Comment: DDS, CT(ASCP) CT screening location: [place] [address] [address] [address] Comment Sis Arana Comment: EXPLANATORY NOTE: The [...] LAB CYTOLOGY ORDERABLES Final Re sult [facility] [employer] [facility] [address] [place] [address] from Last 3 Months or Most Recently Relevant to Health Maintenance Insurance [facility] [employer] [facility] Advance Directives For more information, please contact: [phone] * Full Code (Latest Code Status on File) Date Activated Date Inactivated Comments 09/24/2024 2:46 AM 09/26/2024 7:22 PM * Full Code Date Activated Date Inactivated Comments 09/23/2024 11:02 AM 09/24/2024 2:46 AM Full CPR in case of cardiopulmonary arrest Care Teams Card Boxer Relationship Specialty Start Date End Date Maya Uriostegui NP [address] [place] [address] PCP - General Internal Medicine 02/05/25
--- NOTE | 2025-02-16 05:58 | ED_ITS ---
HPI - General Adult General Chief complaint: Unspecified Stated complaint: post op bleeding Time Seen by Provider: 02/16/25 05:35 Source: patient Mode of arrival: ambulatory Limitations: no limitations History of Present Illness HPI narrative: 24-year-old here with complaints of bleeding from the mouth which started few hours ago. Patient states that she was in deep sleep , felt blood in the mouth , she states she had tonsillectomy a week ago . she state her bleeding is better but occasionally spits up blood . Onset (ago): hour(s) (2) Location: mouth Severity: mild Pain Consistency: intermittent Exacerbating factors: none Associated symptoms: denies other symptoms Related Data Home Medications ?Medication ?Instructions ?Recorded ?Confirmed ?Last Taken ?Type vit no.95-ferrous 1 tablet PO DAILY 02/02/25 02/02/25 Unknown History fumarate 28 mg-folic acid 800 mcg tablet () Allergies Allergy/AdvReac Type Severity Reaction Status Date / Time azithromycin Allergy Severe Hives Verified 02/16/25 05:22 clindamycin Allergy Mild Rash Verified 02/16/25 05:22 doxycycline Allergy Mild rash Verified 02/16/25 05:22 Penicillins Allergy Mild unknown Verified 02/16/25 05:22 amoxicillin AdvReac Rash Verified 02/16/25 05:22 Review of Systems 2 Review of Systems: All systems reviewed & are unremarkable except as noted in HPI and below Constitutional: Constitutional: Reports no additional constitutional complaints Eyes: Eyes: Reports no additional eye complaints ENT: Reports as per HPI Cardiovascular: Cardiovascular: Reports no additional cardiovascular complaints Respiratory: Respiratory: Reports no additional respiratory complaints Gastrointestinal: Gastrointestinal: Reports no additional gastrointestinal complaints Musculoskeletal: Musculoskeletal: Reports no additional musculoskeletal complaints [facility] Past Medical History Medical History (Updated 02/16/25 @ 06:03 by Ricardo Escobar MD) Allergic rhinitis Chronic dysfunction of both eustachian tubes Cryptic tonsil Chronic tonsillitis Ovarian cyst Encounter for Depo-Provera contraception Surgical History Surgical History History of wisdom tooth extraction No pertinent past surgical history Family History Family History Mother Anxiety Thyroid disorder Grandparent Lung cancer Hypertension Heart disease Cerebrovascular accident Thyroid disorder Social History Social History (Updated 01/08/25 @ 13:41 by Judy Monroy Social History: Caffeine- coffee Smoking status: Never smoker Tobacco type: e-cigarettes/vaping Smoking end date: 02/02/23 Alcohol intake: never Substance use: never Substance use type: does not use Do You Feel Safe in your Home?: Yes Lack of Transportation: No Lack of Food: Never True Current Housing: I Have Housing Concerned About Future Housing: No Difficulty Paying Gas/Electric Bills: No Difficulty Paying for Meds: No Currently Unemployed: No Education: Associate Degree Difficulty w/ Childcare or Family Care: No Living arrangements: other Additional living arrangements comments: partner Occupation/Education: occupation Additional occupation/education comments: [employer] Gender identity (if verbalized by the patient): Female Sexual Orientation (if Verbalized by the Patient): Straight or Heterosexual Spiritual care concerns: No Exam 2 Narrative: GENERAL: Well-appearing, well-nourished, and in no acute distress. HEAD: Normocephalic, atraumatic. EYES: PERRLA and EOMI. ENT: there is small blood clot on the right tonsillar pillar NECK: Supple. CHEST: Clear to auscultation. No respiratory distress. HEART: Regular rate and rhythm. No murmur heard. Normal peripheral pulses. EXTREMITIES: Normal range of motion. No edema. SKIN: Warm, dry, no rash. NEURO: No focal deficits. Alert and oriented x3. PSYCH: Normal mood and affect. Course Course Emergency Course: Dr. Wilson is here to see the pt . Vital Signs Vital signs: Vital Signs Temperature 36.6 C 02/16/25 05:33 Pulse Rate 103 H 02/16/25 05:33 Respiratory Rate 14 02/16/25 05:33 Blood Pressure 113/74 02/16/25 05:33 Pulse Oximetry 99 02/16/25 05:33 Temperature 36.6 C 02/16/25 05:33 Pulse Rate 82 02/16/25 05:42 Respiratory Rate 17 02/16/25 05:42 Blood Pressure 113/74 02/16/25 05:42 Pulse Oximetry 100 02/16/25 05:42 Medical Decision Making Vital Signs Vital Signs: Vital Signs Temperature 36.6 C 02/16/25 05:33 Pulse Rate 103 H 02/16/25 05:33 Respiratory Rate 14 02/16/25 05:33 Blood Pressure 113/74 02/16/25 05:33 Pulse Oximetry 99 02/16/25 05:33 Temperature 36.6 C 02/16/25 05:33 Pulse Rate 82 02/16/25 05:42 Respiratory Rate 17 02/16/25 05:42 Blood Pressure 113/74 02/16/25 05:42 Pulse Oximetry 100 02/16/25 05:42 Lab Data 02/16/25 06:11 02/16/25 06:11 Labs: Lab Results 02/16/25 Range/Units 06:11 WBC 4.7 (4.5-10.0) K/mm3 RBC 4.85 (4.2-5.4) M/mm3 Hgb 13.9 (12.0-15.0) g/dL Hct 42.9 (37.0-47.0) % MCV 88.5 (80-100) fl MCH 28.7 (26-34) pg MCHC 32.4 (32-36) g/dl RDW 11.9 (11.5-14.5) % Plt Count 207 (150-375) k/mm3 MPV 10.7 H (7.4-10.4) fl Immature Gran % (Auto) 0.2 (0-0.5) % Neut % (Auto) 49.0 (45.5-73.1) % Lymph % (Auto) 38.9 (18.3-44.2) % [place] % (Auto) 9.4 H (2.6-8.5) % Eos % (Auto) 2.1 (0-4.4) % Baso % (Auto) 0.4 (0.2-1.2) % Lymph # (Auto) 1.83 (0.9-3.2) K/mm3 [place] # (Auto) 0.4 (0.1-0.6) K/mm3 Eos # (Auto) 0.1 (0-0.3) K/mm3 Baso # (Auto) 0.0 (0.0-0.1) K/mm3 Abs Immat Gran (auto) 0.01 (0.00-0.031) K/mm3 Absolute Neuts (auto) 2.3 (1.3-6.7) K/mm3 Absolute Nucleated RBC 0.000 (0.0-0.012) K/mm3 Nucleated RBC % 0.0 (0.0-0.2) % PT 14.1 (11.1-14.7) Seconds INR 1.0 Sodium 142 (137-145) mmol/L Potassium 3.6 (3.4-5.0) mmol/L Chloride 101 (98-107) mmol/L Carbon Dioxide 26 (22-30) mmol/L Anion Gap 15 H (4-12) mmol/L BUN 20 H (7-17) mg/dL Creatinine 0.52 L (0.7-1.0) mg/dL Estim Creat Clear Calc 103 ml/min Estimated GFR > 60 (59 - ) Glucose 76 (65-110) mg/dL Calcium 9.9 (8.4-10.2) mg/dL Discharge Plan Discharge Clinical Impression: Post-tonsillectomy hemorrhage Patient Disposition: Still a Patient Condition: Stable Time of Disposition: 06:49
[2025-02-16 06:21] LABS: Basophils Percent Auto 0.4 % (0.2-1.2); Eosinophils Absolute Auto 0.1 K/mm3 (0-0.3); Eosinophils Percent Auto 2.1 % (0-4.4); Hematocrit 42.9 % (37.0-47.0); Hemoglobin 13.9 g/dL (12.0-15.0); Immature Granulocyte Absolute 0.01 K/mm3 (0.00-0.031); Immature Granulocyte Percent A 0.2 % (0-0.5); Lymphocytes Absolute Auto 1.83 K/mm3 (0.9-3.2); Lymphocytes Percent Auto 38.9 % (18.3-44.2); Mean Corpuscular HGB Conc 32.4 g/dl (32-36); Mean Corpuscular Hemoglobin 28.7 pg (26-34); Mean Corpuscular Volume 88.5 fl (80-100); Mean Platelet Volume 10.7 fl (7.4-10.4); Monocytes Absolute Auto 0.4 K/mm3 (0.1-0.6); Monocytes Percent Auto 9.4 % (2.6-8.5); Neutrophils Absolute Auto 2.3 K/mm3 (1.3-6.7); Platelet Count Result 207 k/mm3 (150-375); Red Blood Count 4.85 M/mm3 (4.2-5.4); Red Cell Distribution Width 11.9 % (11.5-14.5); White Blood Count 4.7 K/mm3 (4.5-10.0)
[2025-02-16 06:25] LABS: Anion Gap 15 mmol/L (4-12); Blood Urea Nitrogen 20 mg/dL (7-17); Calcium 9.9 mg/dL (8.4-10.2); Carbon Dioxide 26 mmol/L (22-30); Chloride 101 mmol/L (98-107); Estimated CRCL calculation 103 ml/min; Estimated Glomerular Filt Rate > 60; Glucose 76 mg/dL (65-110); Potassium 3.6 mmol/L (3.4-5.0); Sodium 142 mmol/L (137-145)
[2025-02-16 06:34] LABS: Prothrombin Time 14.1 Seconds (11.1-14.7)
[2025-02-16] MEDS: SODIUM CHLORIDE 0.9% IV 1,000 ML 125 ML IV CONT (06:40)
--- OUTSIDE RECORDS SUMMARY | 2025-02-16 06:48 | XMS_ITS | Encounter Summary ---
Author Organization [facility] Address [address] [place] [address] Phone Care Team Providers Care Stationary Engineer Apprentice Name Role Phone Ruperto Stovall MD Primary Care Provider [phone] Provider, None Primary Care Provider Unavailabl e Provider, None Primary Care Provider Unavailabl e Encounter Details Date Type Department Care Team (Late st Contact Info) Description 09/22/2023 Lab Requisition [facility] Laboratory Services [address] [place] [address] Steve Del Cid, PAC [address] [place] [address] Encounter for pre-employment examination Social [...] QUANTIFERON-TB GOLD PLUS Routine 09/22/2023 10:50 AM MUD LOGGER Encounter for pre-employment examination documented in this encounter Results * QUANTIFERON-TB GOLD PLUS (09/22/2023 10:50 AM MUD LOGGER) NIL CONTROL 0.00 <8.01 IU/mL 09/24/2023 10:22 AM [facility] TB ANTIGEN 1 0.04 <0.35 IU/mL 09/24/2023 10:22 AM [facility] TB ANTIGEN 2 0.00 <0.35 IU/mL 09/24/2023 10:22 AM [facility] MITOGEN CONTROL 10.00 >0.49 IU/mL 09/24/20 10:22 AM [facility] INTEPRETATION TB NEGATIVE NEGATIVE, NEGATIVE (TB antigen response less than 25% of internal negative control value) 09/24/2023 10:22 AM [facility] Comment:No immune response t o Mycobacterium tuberculosis antigens was noted. M. tuberculosis infection unlikely. Blood No Phlebotomy Charged / Unknown 09/22/2023 10:50 AM MUD LOGGER 09/22/2023 12:21 PM [facility] - 09/24/2023 10:22 AM [facility] A POSITIVE QUANTIFERON-TB GOLD PLUS RESULT [...] individuals. https://www.cdc.gov/tb/publications/guidelines/testing.htm us Steve Del Cid [facility] IMMUNOLOGY ORDERABLES Final Result [facility] [address] [place] [address], documented in this encounter Visit Diagnoses Diagnosis Encounter for pre-employment examination Health examination of defined subpopulation documented in this encounter Additional Health Concerns Infection Onset Date Last Indicated Resolved Time COVID - 19 08/21/2024 08/21/2024 08/21/2024 10:3 0 AM MUD LOGGER COVID - 19 09/18/2024 09/18/2024 09/18/2024 6:53 PM MUD LOGGER documented as of this encounter Care Teams Stationary Engineer Apprentice Relationship Specialty Start Date End Date Ruperto Stovall MD [facility] [place] [address] PCP - General Internal Medicine 05/18/23 12/12/23 Provider, None [place] PCP - General 12/13/23 09/17/24 Provider, None [place] PCP - General 09/18/24 documented as of this encounter
--- OUTSIDE RECORDS SUMMARY | 2025-02-16 06:48 | XMS_ITS | Clinical Summary ---
Author Organization [facility] [email or web address] Address [address] [place] [address] Care Team Providers Care Hide Shaker Name Role Phone Unavailable Primary Care Provider Unavailabl e Source Comments [facility] [email or web address],non-owned Affiliates and Associated Physician Practices is amultiple site organization consisting of ambulatory clinics and hospital sitesin [place], [place], [place] and [place]. This disclosure is being madepursuant to the Care Everywhere program and may not contain all information available regarding this patient. Last updated 18.[facility] [email or web address] Allergies Active Allergy Reactions Criticality Noted Date [...] Problem Noted Date Diagnosed Date Resolved Date ALF: abnormality in pr egnancy (HCC) - Gastroschisis 04/18/2024 05/15/2024 Overview (05/15/2024): Images from the original note were not included. ALF PATIENT--PLEASE CALL [phone] (ex 2) IF TRIAGED OR ADMITTED Care Provider: Dr. Kimmie Howard [place] Care Nelson consultants involved: Claudy; JOEL-Jessica Diagnosis: Gastroschisis Planned surveillance: Initial ALF appointment on 05/25/2024- Patient called on 05/15 to cancel all ALF appointments. Did not want to reschedule at this time. Stated continuing care elsewhere. Delivery location: Delivery mode: Desired Delivery [place]: follow up: Manager Clinical: Autopsy indicated: Genetics note: Envelope Fold Operator Concerns: Care plan based on evaluation [...]
--- OUTSIDE RECORDS SUMMARY | 2025-02-16 06:48 | XMS_ITS | Encounter Summary ---
Author Organization [facility] Address [address] [place] [address] Care Team Providers Care Home Administrator Name Role Phone Hilda Del Rio MD Primary Care Provider [phone] Encounter Details Date Type Department Care Team (Late st Contact Info) Description 05/02/2007 Outpatient Historical [facility] [place] [address] [address] Gomez Car MD [address] [place] [id number] Social History Tobacco Use Types Packs/Day Years Used Date Smoking Tobacco: Never Assessed Comments Unknown Sex and Gender Information Value Date Recorded Sex Assigned at Not on file Legal Sex Female 4:12 AM NEGATIVE SPOTTER Gender Identity Not on file Sexual Orientation Not on file documented as of this encounter Plan of Treatment Not on file documented as of this encounter Visit Diagnoses Not on filedocumented in this encounter Care Teams Home Administrator Relationship Specialty Start Date End Date iHlda Del Rio MD PCP - General Pediatrics 09/17/13 documented as of this encounter
--- OUTSIDE RECORDS SUMMARY | 2025-02-16 06:48 | XMS_ITS | Encounter Summary ---
Author Organization [facility] Address [address] [place] [address] Care Team Providers Care Mill Manager Name Role Phone Hilda Del Rio MD Primary Care Provider [phone] Encounter Details Date Type Department Care Team (Latest Contact Info) Description 05/02/2007 Outpatient Historical [facility] JosepGomez MD [address] [facility] [place] [address] Unspecified Chest Pain (Primary Dx) Social History Tobacco Use Types Packs/Day Years Used Date Smoking Tobacco: Never Assessed Comments Unknown Sex and Gender Information Value Date Recorded Sex Assigned at Not on file Legal Sex Female 4:12 AM TIMBER DEADENER Gender Identity Not on file Sexual Orientation Not on file documented as of this encounter Plan of Treatment Not on file documented as of this encounter Visit Diagnoses Diagnosis Chest pain, unspecified- Primary documented in this encounter Care Teams Mill Manager Relationship Specialty Start Date End Date Hilda Del Rio MD PCP - General Pediatrics 09/17/13 documented as of this encounter
--- OUTSIDE RECORDS SUMMARY | 2025-02-16 06:48 | XMS_ITS | Encounter Summary ---
Author Organization [facility] Address [address] [place] [address] Care Team Providers Care Direct Marketing Specialist Name Role Phone Hilda Del Rio MD Primary Care Provider [phone] Encounter Details Date Type Department Care Team (Late st Contact Info) Description 06/03/2007 Outpatient Historical [facility] Gomez Car MD [address] [facility] [facility] [address] [place] [address] Social History Tobacco Use Types Packs/Day Years Used Date Smoking Tobacco: Never Assessed Comments Unknown Sex and Gender Information Value Date Recorded Sex Assigned at Not on file Legal Sex Female 4:12 AM CHECKOUT SUPERVISOR Gender Identity Not on file Sexual Orientation Not on file documented as of this encounter Plan of Treatment Not on file documented as of this encounter Visit Diagnoses Not on filedocumented in this encounter Care Teams Direct Marketing Specialist Relationship Specialty Start Date End Date Hilda Del Rio MD PCP - General Pediatrics 09/17/13 documented as of this encounter
--- OUTSIDE RECORDS SUMMARY | 2025-02-16 06:48 | XMS_ITS | Encounter Summary ---
Author Organization [facility] Address [address] [place] [address] Care Team Providers Care Sand Carrier Name Role Phone Hilda Del Rio MD Primary Care Provider [phone] Reason for Visit * Reason Comments Medication Refill Encounter Details Date Type Department Care Team (Late st Contact Info) Description 11/20/2013 Refill [place] [facility] [place] [address] [facility] [place] [address] Saundra Suarez MD [address] [place] [address] [address] [place] [address] Social History Tobacco Use Types Packs/Day Years Used Date Smoking Tobacco: Never Smokeless Tobacco: Never Alcohol Use Standard Drinks/Week Comments No 0 (1 standard drink = 0.6 oz pur e alcohol) Comments No Sex and Gender Information Value Date Recorded Sex Assigned at Not on file Legal Sex Female 4:12 AM LINING CASER Gender Identity Not on file Sexual Orientation Not on file Occupation Industry Job Start Date Job End Date Not on file Not on file Not on file Not on file documented as of this encounter Plan of Treatment Not on file documented as of this encounter Visit Diagnoses Not on filedocumented in this encounter Care Teams Sand Carrier Relationship Specialty Start Date End Date Hilda Del Rio MD PCP - General Pediatrics 09/17/13 documented as of this encounter
--- OUTSIDE RECORDS SUMMARY | 2025-02-16 06:48 | XMS_ITS | Encounter Summary ---
Author Organization [facility] Address [address] [place] [address] Care Team Providers Care Jail Keeper Name Role Phone Maya Uriostegui NP Primary Care Provider Encounter Details Date Type Department Care Team (Late st Contact Info) Description 02/09/2025 Results Follow-Up [facility] Medical Group Primary Care at [address] [address] Maya Uriostegui NP [address] [place] [address] [address] [place] [address] Social History Tobacco Use Types [...] often do you attend chur ch or sikh services? 1 to 4 times per year [...] things needed for daily living? No 09/25/2024 [place] Depression Scale Answer Date Recorded [place] Depression Scale Total 11 11/07/2024 The thought [...] in the past 12 m [facility], were you homeless or living in a usp (including now)? No 09/25/2024 Personal Safety Answer Date Recorded Have you ever been in or are you currently in a harmful physical or emotional relationship or is someone making you feel afraid or unsafe? Denies 09/23/2024 Comments No Sex and Gender Information Value Date Recorded Sex Assigned at Not on file Legal Sex Female 11:28 PM CUSTODIAL WORKER Gender Identity Not on file Sexual [...] on filedocumented in this encounter Care Teams Jail Keeper Relationship Specialty Start Date End Date Maya Uriostegui NP [address] [facility] [address] [place] [address] PCP - General Internal Medicine 02/05/25 documented as of this encounter
--- OUTSIDE RECORDS SUMMARY | 2025-02-16 06:48 | XMS_ITS | Encounter Summary ---
Author Organization [facility] Address [address] [place] [address] Care Team Providers Care Timber Sizer Name Role Phone Hilda Del Rio MD Primary Care Provider [phone] Encounter Details Date Type Department Care Team (Late st Contact Info) Description 05/02/[address] [facility] Support Serv. (Peds Cardiology-[facility]) [address] [place] [address] Gomez Car MD [address] [place] [address] Social History Tobacco Use Types Packs/Day Years Used Date Smoking Tobacco: Never Assessed Comments Unknown Sex and Gender Information Value Date Recorded Sex Assigned at Not on file Legal Sex Female 4:12 AM BLUE PRINTS TRIMMER Gender Identity Not on file Sexual Orientation Not on file documented as of this encounter Plan of Treatment Not on file documented as of this encounter Visit Diagnoses Not on filedocumented in this encounter Care Teams Timber Sizer Relationship Specialty Start Date End Date Hilda Del Rio MD PCP - General Pediatrics 09/17/13 documented as of this encounter
--- OUTSIDE RECORDS SUMMARY | 2025-02-16 06:49 | XMS_ITS | Clinical Summary ---
Author Organization [facility] Address [address] [place] [address] Care Team Providers Care Ceo And President Name Role Phone Maya Uriostegui NP Primary Care Provider [phone] Allergies Active Allergy Reactions Criticality Noted Date [...] 05/12/2023 Assessment & Plan (09/10/2023 10:29 AM PRODUCT ENGINEERING MANAGER): Discussed nature of ovarian cyst. Patient aware to help manage/decrease occurrence of ovarian cyst a low-dose oral combined contraceptive pill is often therapeutic. Patient does not desire to be on a form of hormonal control at this time. Can use [id number] NSAIDs for pain relief if needed. Assessment [...] carried 03/05 in house: R1 (first call) [phone] R1 alt (second call) [phone] R4 (Chief) [phone] Poor growth affecting management of mother in second trimester 07/31/2024 11/07/2024 Overview (09/11/2024): EFW 9%, AC 7%, PI wnl S/p counseling 08/14/2024 PI elevated- >99% 08/22/2024 PI 91% 09/11/2024 EFW 4%, AC 3%, PI >99% Plan: Continue q3 week growth US Weekly dopplers with BPP Weekly NSTs Delivery currently scheduled for 37w [facility] precautions reviewed Assessment & Plan (09/04/2024 10:19 AM PRODUCT ENGINEERING MANAGER): PI wnl, BPP 05/18, [facility] precautions reviewed Assessment & Plan (07/31/2024 11:48 AM CDT): Reviewed increased risk of stillbirth with FGR and importance of weekly dopplers and 2x/weekly testing. [facility] precautions reviewed. Maternal varicella, non-immune 06/14/2024 11/07/2024 [...] 2/2 elevated dopplers [x] [facility] of delivery: [facility] [x] Epidural: likely desires but has questions- anesthesia consult placed [x] Blood Products: willing to accept [x] MOC: s/p counseling and pt declines and plans for condoms [x] Method of feeding: breast [x] Conveyor Tender Concrete Mixing Plant: discussed, handouts previously provided [x] PP Depression Discussed: Assessment & Plan (09/11/2024 11:20 AM PRODUCT ENGINEERING MANAGER): Discussed that the plan could change at [...] weeks [x] 2x/weekly testing 2/2 FGR [x] [facility] consultation [x] IOL [...] Department Care Team Description 02/09/2025 Results Follow-Up [facility] Medical Group Primary Care at [address] [address] Maya Uriostegui NP 02/08/[address] [address] 02/05/2025 4:17 PM CDT - 02/05/2025 11:59 PM CDT Hospital Encounter [address] [address] Wellness examination; Dizziness; Near syncope; Screening, lipid Discharge Disposition: Discharge to home or self care 02/05/2025 4:15 PM CDT Lab [facility] Group Outpatient Lab at [address] [address] Wellness examination (Primary Dx) 02/05/2025 3:30 PM CDT Office Visit [facility] Medical Group Primary Care at [address] [address] Maya Uriostegui NP BMI 20.0-20.9, adult (Primary Dx); Wellness examination; Dizziness; Near syncope; Screening, lipid; Anxiety 02/05/[address] [address] 01/26/[address] [address] 01/20/[address] [place] [address] 01/09/2025 Encounter [place] [address] [place] [address] 12/31/[address] [address] 12/23/[address] [address] 12/23/2024 Results Follow-Up [facility] Medical [facility] [place] [address] [place] [address] Eloisa Carr NP 12/21/2024 10:19 AM CDT - 12/21/2024 11:59 PM CDT Hospital Encounter [address] [address] Sore throat Discharge Disposition: Discharge to home or self care 12/21/2024 9:00 AM CDT Office Visit [facility] Medical [facility] [place] [address] [place] [address] Sapphire Laws NP Allergic rhinitis, unspecified seasonality, unspecified trigger (Primary Dx); Sore throat 12/17/[address] [address] 12/10/2024 Encounter [place] [address] [place] [address] 12/05/2024 Encounter [place] [address] [place] [address] 11/26/[address] [address] from Last 3 Months Immunizations Immunization Administration [...] often do you attend chur ch or caodaism services? 1 to 4 times per year 09/25/2024 Do you belong to any clubs o r organizations such as roman catholic groups, unions, fraternal or athletic groups, or [...] things needed for daily living? No 09/25/2024 [place] Depression Scale Answer Date Recorded [place] Depression Scale Total 11 11/07/2024 The thought [...] any time in the past 12 m [facility], were you homeless or living in [...] on file Legal Sex Female 11:28 PM PRODUCT ENGINEERING MANAGER Gender Identity Not on file Sexual Orientation [...] Mini Diego MD Complications:None Delivery Location:[facility] ([facility] 58LD) Last Filed Vital Signs Vital [...] Completed 07/31/2024 Medical Devices Implanted Type Area Lift Mechanic Device Identifier Shelf Expiration Date Model / [...] GONORRHOEAE/C. TRACHOMATIS AMPLIFICATION Routine 08/24/2024 1:38 PM PRODUCT ENGINEERING MANAGER Supervision of high-risk , unspecified trimester HEPATITIS [...] NP LAB BLOOD ORDERABLES Final Re sult [facility] [address] [place] [address] * Differential, auto (02/05/2025 4:17 PM CDT) Neutrophil abs 3.27 1.50 - 6.50 K/cumm Imm gran abs 0.01 0.00 - 0.10 K/cumm [facility] Lymphocyte abs 2.31 0.80 - 3.30 K/cumm [facility] Monocyte abs 0.42 0.20 - 0.80 K/cumm [facility] Eosinophil abs 0.10 0.00 - 0.50 K/cumm [facility] Basophil abs 0.03 0.00 - 0.10 K/cumm [facility] Neutrophil pct 53.3 % [facility] Comment: Interpretive Data Percent cell count reference ranges are not reported, since discordance with absolute values may lead to misinterpretation of CBC data. Current Interpretive Data was last revised on 2018. Imm gran pct 0.2 % [facility] Comment: Interpretive Data Percent cell count reference ranges are not reported, since discordance with absolute values may lead to misinterpretation of CBC data. Current Interpretive Data was last revised on 2018. Lymphocyte pct 37.6 % [facility] Comment: Interpretive Data Percent cell count reference [...] 4:17 PM CDT 02/05/2025 9:35 PM CDT [employer] PATIENT RELATIONS SPECIALIST LAB BLOOD ORDERABLES Final Re sult Performing Organization Address [facility]/ZIP Co de Phone Number ASHLEY [address] [email or web address] [place], [place] [id number] * Thyroid Function Meta (02/05/2025 4:17 PM CDT) TSH 1.85 0.30 - 4.20 mcIUnit/mL Blood 02/05/2025 4:17 PM CDT 02/05/2025 9:35 PM CDT [employer] PATIENT RELATIONS SPECIALIST LAB BLOOD ORDERABLES Final Re sult Performing Organization Address [facility]/ZIP Co de Phone Number KALPANASANTIAGO AMEZCUA [address] [place] [address] * (ABNORMAL) Iron profile w/ IBC (02/05/2025 4:17 PM CDT) Iron 56 35 - 145 mcg/dl TIBC 313 250 - 400 mcg/dL [facility] Transferrin saturation 18(L) 20 - 50 % [facility] Blood 02/05/2025 4:17 PM CDT 02/05/2025 9:35 PM CDT Maya Uriostegui PATIENT RELATIONS SPECIALIST LAB BLOOD ORDERABLES Final Re sult Performing Organization Address City/[facility]/ZIP Co de Phone Number ASHLEY AMEZCUA [address] [place] [address] * (ABNORMAL) CBC with auto [...] CDT 02/05/2025 9:35 PM CDT Maya Uriostegui PATIENT RELATIONS SPECIALIST LAB BLOOD ORDERABLES Final Re sult Performing Organization Address City/[facility]/ZIP Co de Phone Number ASHLEY AMEZCUA [address] [place] [address] * Vitamin D 25 hydroxy (02/05/2025 4:17 PM CDT) Vitamin D 25-OH 37 30 - 80 ng/mL Blood 02/05/2025 4:17 PM CDT 02/05/2025 9:35 PM CDT us Maya Uriostegui PATIENT RELATIONS SPECIALIST LAB BLOOD ORDERABLES Final Re sult Performing Organization Address [facility] Co de Phone Number ASHLEY AMEZCUA [address] [facility] [place] [address] * Folate (02/05/2025 4:17 PM CDT) Folic acid >20.0 >=5.0 ng/mL Comment:Hemolysis present. R esults may be affected. Blood 02/05/2025 4:17 PM CDT 02/05/2025 9:35 PM CDT us Maya Uriostegui PATIENT RELATIONS SPECIALIST LAB BLOOD ORDERABLES Final Re sult Performing Organization Address [facility] Co de Phone Number KALPANASANTIAGO AMEZCUA [address] [place] [address] * Ferritin (02/05/2025 4:17 PM CDT) Ferritin 39 15 - 150 ng/mL Blood 02/05/2025 4:17 PM CDT 02/05/2025 9:35 PM CDT us Maya Uriostegui PATIENT RELATIONS SPECIALIST LAB BLOOD ORDERABLES Final Re sult Performing Organization Address [facility] Co de Phone Number KALPANASANTIAGO [address] [place] [address] * Vitamin B12 (02/05/2025 4:17 PM CDT) Vitamin B12 637 230 - 1,250 pg/mL Blood 02/05/2025 4:17 PM CDT 02/05/2025 9:35 PM CDT us Maya Uriostegui PATIENT RELATIONS SPECIALIST LAB BLOOD ORDERABLES Final Re sult Performing Organization Address [facility] Co de Phone Number ASHLEY AMEZCUA [address] [place] [address] * Lipid panel (02/05/2025 4:17 PM CDT) [...] BLOOD ORDERABLES Final Re sult ASHLEY AMEZCUA [address] [place] [address] * (ABNORMAL) Comprehensive metabolic panel [...] CDT 02/05/2025 9:35 PM CDT Maya Uriostegui PATIENT RELATIONS SPECIALIST LAB BLOOD ORDERABLES Final Re sult [facility] [address] [place] [address] * Throat culture Throat (12/21/2024 10:19 AM CDT) Report Final Report: No growth of pathogens. Comment:Testing performed by : [facility] [place] [facility], [address] [facility], [place]., [address] Throat 12/21/2024 10:1 9 AM CDT 12/21/2024 10:56 PM CDT Narrative ASHLEY - 12/22/2024 10:04 PM CDT Testing performed by [facility] [place] [facility] Microbiology Laboratory ([phone]). Result [facility] Sapphire Laws NP LAB MICROBIOLOGY - GENERAL ORD ERABLES Final Result [facility] [address] [facility] Department [place] [address] * POCT rapid strep A (12/21/2024 9:51 AM CDT) Rapid Strep A, POC Negative Negative Swab 12/21/2024 9:51 AM CDT Result [facility] Sapphire Laws NP POINT OF CARE TEST ORDERABLES Final Result * N. gonorrhoeae/C. trachomatis Amplification Urine (08/24/2024 1:38 PM PRODUCT ENGINEERING MANAGER) [facility] C. trachomatis Not Detected [facility] N. gonorrhoeae Not Detected [facility] Comment: Interpretive Data This assay detects Chlamydia trachomatis and Neisseria gonorrhoeae by nucleic acid amplification testing (NAAT). This assay has been cleared by the [place] Food and Drug administration. The performance characteristics of this test have been verified by the [facility] [place] [facility] Molecular Infectious Disease laboratory. The performance characteristics of this test have not been evaluated in individuals less than 14 years of age. Current Interpretive Data was last revised on 2023. Urine (None) 08/24/2024 1:38 PM PRODUCT ENGINEERING MANAGER 08/24/2024 2:19 PM PRODUCT ENGINEERING MANAGER Result [facility] Renita Chong NP LAB MICROBIOLOGY - GENERAL ORDERABLES Final Result ASHLEY [facility] [place] [address] [facility] * Hepatitis C antibody Blood (07/31/2024 10:20 AM CDT) Hep C Ab Nonreactive Nonreactive Comment:Antibodies to HCV no t detected. Does NOT exclude the possibility of recent exposure to HCV. Current interpretive data was last revised on 22 Blood 07/31/2024 10:2 0 AM CDT 07/31/2024 11:35 AM CDT Renita Chong NP LAB MICROBIOLOGY - GENERAL ORDERABLES Final Result ASHLEY THOMAS [facility] [place] [address] * Pap with reflex to High Risk HPV (03/19/2023 11:54 AM CDT) CLINICAL INFORMATION: Sis Arana Comment:Routine exam LMP Sis Arana Comment:[id number] Previous Pap Sis Arana Comment:NONE GIVEN Prev. Bx Sis Arana Comment:CE SOURCE: Sis Arana Comment:Cervix, Endocervix Pap, specimen adequacy Sis Arana Comment: Satisfactory for evaluation. Endocervical/transformation zone component present. HPV interp Sis Arana Comment:Negative for intraep ithelial lesion or malignancy. COMMENTS Sis Arana Comment: This Pap test has been evaluated with computer assisted technology. Merchandise Planner Rui Guzman Comment: JAF, CT(ASCP) CT Screening Location: [place] [address] [address] [address] Review metal fabricator helper Sis Arana Comment: DDS, CT(ASCP) CT screening location: [place] [address] [address] [address] Comment Sis Arana Comment: EXPLANATORY NOTE: The [...] LAB CYTOLOGY ORDERABLES Final Re sult [facility] [address] [place] [address] from Last 3 Months or Most Recently Relevant to Health Maintenance Insurance [employer] Advance Directives For more information, please contact: [phone] * Full Code (Latest Code Status on File) Date Activated Date Inactivated Comments 09/24/2024 2:46 AM 09/26/2024 7:22 PM * Full Code Date Activated Date Inactivated Comments 09/23/2024 11:02 AM 09/24/2024 2:46 AM Full CPR in case of cardiopulmonary arrest Care Teams Ceo And President Relationship Specialty Start Date End Date Maya Uriostegui NP [address] [place] [address] PCP - General Internal Medicine 02/05/25
--- OUTSIDE RECORDS SUMMARY | 2025-02-16 06:49 | XMS_ITS | Clinical Summary ---
Author Organization [facility] Address [address] [place] [address] Phone Care Team Providers Care Financial Services Representative Name Role Phone Hilda Del Rio MD Primary Care Provider [phone] Allergies Active Allergy Reactions Criticality Noted Date [...] on file Legal Sex Female 4:12 AM OCCUPATIONAL THERAPY TECHNICIAN Gender Identity Not on file Sexual [...] DETECTED Not Detected 04/12/2017 11:45 AM CDT [facility] GC DNA AMPLIFICATION NOT DETECTED Not Detected 04/12/2017 11:45 AM CDT [facility] Just Soles [facility] Urine URINE SPECIMEN / Unknown Collection / Unknown 04/11/2017 8:41 AM CDT 04/11/2017 8:44 AM CDT [facility] - 04/12/2017 11:45 AM CDT Results should not be used for the evaluation of suspected sexual abuse or for other medico-legal indications. The only legally accepted results are from culture. Results cannot be used to assess therapeutic success or failure since nucleic acids may persist following antimicrobial therapy. This test was developed and its performance characteristics determined by [facility]. It has not been cleared by U.S. [...] Chavira MD URINE ORDERABLES COM Final Result [facility] CLIA# [id number] [address] [id number] from Last 3 Months or Most Recently Relevant to Health Maintenance Insurance RX [employer] RX Member Subscriber Plan / Payer (Ef fective for All Dates) Name:Merly Abad Relation to Subscriber:Child Name:Merly Abad Payer ID:Not on file Group ID:[facility] Type:RX Commercial Address: [address] RX [employer] (INTERNAL) [facility] [place] [id number] [place] [address] Advance Directives For more information, please contact: [phone] * Full Code (Latest Code Status on File) Date Activated Date Inactivated Comments 06/23/2017 4:13 PM 06/29/2017 4:14 PM * Full Code Date Activated Date Inactivated Comments 06/09/2017 12:12 PM 06/16/2017 7:12 PM * Full Code Date Activated Date Inactivated Comments 04/08/2017 9:30 PM 04/14/2017 6:41 PM Care Teams Financial Services Representative Relationship Specialty Start Date End Date Hilda Del Rio MD PCP - General Pediatrics 09/17/13
--- OUTSIDE RECORDS SUMMARY | 2025-02-16 06:49 | XMS_ITS | Encounter Summary ---
Author Organization [facility] Address [address] [place] [address] Phone Care Team Providers Care Water Resource Project Manager Name Role Phone Hilda Del Rio MD Primary Care Pro vider Donna Chaudhary MD Primary Care Provider Ruperto Stovall MD Primary Care Provider + No, Physician Primary Care Provider [phone] Maya Uriostegui NP Primary Care Provider [phone] Encounter Details Date Type Department Care Team (Late st Contact Info) Description 12/13/2018 Ophth Exam [facility] [address] [place] [address] 1st [place] [id number] Christine Miles MD PhD [address] [id number] Social History Tobacco Use Types Packs/Day Years Used Date Smoking Tobacco: Never Smokeless Tobacco: Never Alcohol Use Standard Drinks/Week Comments No 0 (1 standard drink = 0.6 oz pur e alcohol) Comments No Sex and Gender Information Value Date Recorded Sex Assigned at Not on file Legal Sex Female 11:28 PM CONTINUOUS CONVEYOR SCREEN DRIER Gender Identity Not on file Sexual Orientation [...] lesions Normal. No le caryn. Care Teams Water Resource Project Manager Relationship Specialty Start Date End Date Hilda Del Rio MD PCP - General 01/20/12 07/26/19 Donna Chaudhary MD PCP - General Pediatrics 07/27/19 10/20/21 Ruperto tSovall MD [address] [place] [address] PCP - General Internal Medicine 10/21/21 06/06/24 No, Physician PCP - General 06/07/24 02/04/25 Maya Uriostegui NP [address] [address] PCP - General Internal Medicine 02/05/25 documented as of this encounter
--- OUTSIDE RECORDS SUMMARY | 2025-02-16 06:49 | XMS_ITS | Clinical Summary ---
Author Organization [facility] Address [address] [place] [address] Phone Care Team Providers Care Solid Fiber Paster Operator Name Role Phone Provider, None Primary Care [...] Comments Blood Pressure 123/81 09/19/2024 12:11 AM PAINTER AND BODY MECHANIC APPRENTICE Pulse 100 09/19/2024 12:11 AM PAINTER AND BODY MECHANIC APPRENTICE Temperature 36.9 C (98.4 F) 09/18/2024 5:49 PM PAINTER AND BODY MECHANIC APPRENTICE Respiratory Rate 18 09/19/2024 12:11 AM PAINTER AND BODY MECHANIC APPRENTICE Oxygen Saturation 100% 09/19/2024 12:11 AM PAINTER AND BODY MECHANIC APPRENTICE Inhaled Oxygen Concentration - - Weight 59.9 kg (132 lb) 09/18/2024 5:49 PM PAINTER AND BODY MECHANIC APPRENTICE Height 157.5 cm (5' 2 ) 09/18/2024 5:49 PM PAINTER AND BODY MECHANIC APPRENTICE Body Mass Index 24.14 09/18/2024 5:49 PM PAINTER AND BODY MECHANIC APPRENTICE Plan of Treatment Health Maintenance Due Date [...] Date of Phone Billing Address Institutional Other [address] [place] [address] Care Teams Solid Fiber Paster Operator Relationship Specialty Start Date End Date Provider, None [place] PCP - General 09/18/24
--- OUTSIDE RECORDS SUMMARY | 2025-02-16 06:49 | XMS_ITS | Encounter Summary ---
Author Organization [facility] Address [address] [place] [address] Care Team Providers Care Wheel Truer Name Role Phone No, Physician Primary Care Provider [phone] Maya Uriostegui NP Primary Care Provider [phone] Encounter Details Date Type Department Care Team (Late st Contact Info) Description 12/23/2024 Results Follow-Up [facility] Medical Group [facility] [place] [address] [place] [phone] Eloisa Carr, ROGRE [address] [facility] [address] [place] [address] Social History Tobacco Use Types [...] often do you attend chur ch or yazidism services? 1 to 4 times per year 09/25/2024 Do you belong to any clubs o r organizations such as catholic groups, unions, fraternal or athletic groups, [...] things needed for daily living? No 09/25/2024 Cypress Depression Scale Answer Date Recorded Cyp[place] Depression Scale Total 11 11/07/2024 The thought [...] any time in the past 12 m [facility], were you homeless or living in a halfway (including now)? No 09/25/2024 Personal Safety Answer Date Recorded Have you ever been in or are you currently in a harmful physical or emotional relationship or is someone making you feel afraid or unsafe? 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
--- OUTSIDE RECORDS SUMMARY | 2025-02-16 06:49 | XMS_ITS | Referral Summary ---
Author Organization [facility] Address [address] [place] [address] Care Team Providers Care Cattle Driver Name Role Phone Maya Uriostegui NP Primary Care Provider [phone] Encounters Date Type Department Care Team Description 02/09/2025 Results Follow-Up [facility] Primary Care at [address] [address] Maya Uriostegui NP 02/08/[address] [address] 02/05/2025 4:17 PM CDT - 02/05/2025 11:59 PM CDT Hospital Encounter [address] [address] Wellness examination; Dizziness; Near syncope; Screening, lipid Discharge Disposition: Discharge to home or self care 02/05/2025 4:15 PM CDT Lab [facility] Outpatient Lab at [address] [id number] Wellness examination (Primary Dx) 02/05/[address] [address] 02/05/2025 3:30 PM CDT Office Visit [facility] Primary Care at [address] [address] Maya Uriostegui NP BMI 20.0-20.9, adult (Primary Dx); Wellness examination; Dizziness; Near syncope; Screening, lipid; Anxiety 01/26/2025 Encounter [place] [address] [place] [address] 01/20/2025 Encounter [place] [address] [place] [address] 01/09/2025 Encounter [place] [address] [place] [address] 12/31/2024 Encounter [place] [address] [place] [address] 12/23/[address] [place] [address] 12/23/2024 Results Follow-Up [facility] at [place] [address] [place] [address] Eloisa Carr NP 12/21/2024 10:19 AM CDT - 12/21/2024 11:59 PM CDT Hospital Encounter [address] [address] Sore throat Discharge Disposition: Discharge to home or self care 12/21/2024 9:00 AM CDT Office Visit [facility] [place] [address] [place] [address] Sapphire Laws NP Allergic rhinitis, unspecified seasonality, unspecified trigger (Primary Dx); Sore throat 12/17/2024 Encounter [place] [address] [place] [address] 12/10/2024 Encounter [place] [address] [place] [address] 12/05/[address] [address] 11/26/[address] [place] [address] from Last 3 Months Allergies Active Allergy [...] 05/12/2023 Assessment & Plan (09/10/2023 10:29 AM DIRECTOR OF VOCATIONAL GUIDANCE): Discussed nature of ovarian cyst. Patient aware to help manage/decrease occurrence of ovarian cyst a low-dose oral combined contraceptive pill is often therapeutic. Patient does not desire to be on a form of hormonal control at this time. Can use eamo-dyc-mawelnj NSAIDs for pain relief if needed. Assessment [...] carried 03/05 in house: R1 (first call) [phone] R1 alt (second call) [phone] R4 (Chief) [phone] Poor growth affecting management of mother in second trimester 07/31/2024 11/07/2024 Overview (09/11/2024): EFW 9%, AC 7%, PI diamante S/p counseling 08/14/2024 PI elevated- >99% 08/22/2024 PI 91% 09/11/2024 EFW 4%, AC 3%, PI >99% Plan: Continue q3 week growth US Weekly dopplers with BPP Weekly NSTs Delivery currently scheduled for 37w [facility] precautions reviewed Assessment & Plan (09/04/2024 10:19 AM DIRECTOR OF VOCATIONAL GUIDANCE): PI diamante, BPP 05/18, [facility] precautions reviewed Assessment & Plan (07/31/2024 11:48 AM CDT): Reviewed increased risk of stillbirth with FGR and importance of weekly dopplers and 2x/weekly testing. [facility] precautions reviewed. Maternal varicella, non-immune 06/14/2024 11/07/2024 Overview (06/14/2024): For Varivax pp Supervision of high-risk pre gnancy, unspecified trimester 05/17/2024 11/07/2024 Overview (09/21/2024): [x] Full [facility] Care; [x] Blue Team Referring Provider: Danielito [...] 2/2 elevated dopplers [x] Place of delivery: [facility] [x] Epidural: likely desires but has questions- anesthesia consult placed [x] Blood Products: willing to accept [x] MOC: s/p counseling and pt declines and plans for condoms [x] Method of feeding: breast [x] Mailing Jogger: discussed, handouts previously provided [x] PP Depression Discussed: Assessment & Plan (09/11/2024 11:20 AM DIRECTOR OF VOCATIONAL GUIDANCE): Discussed that the plan could change at [...] 09/25/2024 How often do you attend [facility] or mosque services? 1 to 4 times per year 09/25/2024 Do you belong to any clubs o r organizations such as methodist groups, unions, fraternal or athletic groups, or [...] things needed for daily living? No 09/25/2024 [place] Depression Scale Answer Date Recorded [place] Depression Scale Total 11 11/07/2024 The thought [...] any time in the past 12 m [facility], were you homeless or living in a custodial (including now)? No 09/25/2024 Personal Safety Answer Date Recorded Have you ever been in or are you currently in a harmful physical or emotional relationship or is someone making you feel afraid or unsafe? Denies 09/23/2024 Comments No Sex and Gender Information Value Date Recorded Sex Assigned at Not on file Legal Sex Female 11:28 PM DIRECTOR OF VOCATIONAL GUIDANCE Gender Identity Not on file Sexual Orientation [...] on file Medical Devices Implanted Type Area Level Vial Inside Grinder Device Identifier Shelf Expiration Date Model / [...] GONORRHOEAE/C. TRACHOMATIS AMPLIFICATION Routine 08/24/2024 1:38 PM DIRECTOR OF VOCATIONAL GUIDANCE Supervision of high-risk , unspecified trimester HEPATITIS [...] LAB BLOOD ORDERABLES Final Re sult ASHLEY [address] Department [place] [address] * Differential, auto (02/05/2025 4:17 PM CDT) Neutrophil abs 3.27 1.50 - 6.50 K/cumm Imm gran abs 0.01 0.00 - 0.10 K/cumm [facility] Lymphocyte abs 2.31 0.80 - 3.30 K/cumm [facility] Monocyte abs 0.42 0.20 - 0.80 K/cumm [facility] Eosinophil abs 0.10 0.00 - 0.50 K/cumm [facility] Basophil abs 0.03 0.00 - 0.10 K/cumm [facility] Neutrophil pct 53.3 % [facility] Comment: Interpretive Data Percent cell [...] revised on 2018. Eosinophil pct 1.6 % [facility] Comment: Interpretive Data Percent cell count reference ranges are not reported, since discordance with absolute values may lead to misinterpretation of CBC data. Current Interpretive Data was last revised on 2018. Basophil pct 0.5 % [facility] Comment: Interpretive Data Percent cell count reference ranges are not reported, since discordance with absolute values may lead to misinterpretation of CBC data. Current Interpretive Data was last revised on 2018. Blood 02/05/2025 4:17 PM CDT 02/05/2025 9:35 PM CDT Maya Uriostegui TRUCK DRIVER LAB BLOOD ORDERABLES Final Re sult Performing Organization Address [facility] de Phone Number [facility] [address] Department of [employer] [place] [address] * Thyroid Function [place] (02/05/2025 4:17 PM CDT) TSH 1.85 0.30 - 4.20 mcIUnit/mL Blood 02/05/2025 4:17 PM CDT 02/05/2025 9:35 PM CDT Mayatiffanie Uriostegui TRUCK DRIVER LAB BLOOD ORDERABLES Final Re sult Performing Organization Address [facility] de Phone Number [place] [address] Department of [employer] [place] [address] * (ABNORMAL) Iron profile w/ IBC (02/05/2025 4:17 PM CDT) Iron 56 35 - 145 mcg/dl TIBC 313 250 - 400 mcg/dL [facility] Transferrin saturation 18(L) 20 - 50 % [facility] Blood 02/05/2025 4:17 PM CDT 02/05/2025 9:35 PM CDT Maya Uriostegui TRUCK DRIVER LAB BLOOD ORDERABLES Final Re sult Performing Organization Address City/[facility]/ZIP Co de Phone Number ASHLEY [address] Department of [employer] [place] [address] * (ABNORMAL) CBC with auto differential (02/05/2025 4:17 PM CDT) Pathologist [facility] WBC 6.14 3.80 - 9.90 K/cumm Hgb 13.2 11.9 - 15.5 g/dL [facility] Hct 41.1 35.6 - 45.5 % [facility] Plt 247 150 - 400 K/cumm [facility] MPV 10.5 9.1 - 12.3 fL [facility] RBC 4.57 3.90 - 5.20 M/cumm [facility] MCV 89.9 81.3 - 96.4 fL [facility] CH MCH 28.9 27.1 - 33.3 pg [facility] MCHC 32.1(L) 32.3 - 35.7 g/dL [facility] RDW CV 12.6 11.1 - 14.9 % [facility] RDW SD 41.4 35.7 - 48.[address] [facility] NRBC abs 0.00 0.00 - 0.01 K/cumm [facility] Blood 02/05/2025 4:17 PM CDT 02/05/2025 9:35 PM CDT Maya Uriostegui TRUCK DRIVER LAB BLOOD ORDERABLES Final Re sult ASHLEY [address] Department of [employer] [place] [address] * Vitamin D 25 hydroxy (02/05/2025 4:17 PM CDT) Pathologist [facility] Vitamin D 25-OH 37 30 - 80 ng/mL Blood 02/05/2025 4:17 PM CDT 02/05/2025 9:35 PM CDT Maya Uriostegui TRUCK DRIVER LAB BLOOD ORDERABLES Final Re sult Performing Organization Address [facility] Co de Phone Number ASHLEY AMEZCUA [address] [facility] [employer] [place] [address] * Folate (02/05/2025 4:17 PM CDT) Pathologist [facility] Folic acid >20.0 >=5.0 ng/mL Comment:Hemolysis present. R esults may be affected. Blood 02/05/2025 4:17 PM CDT 02/05/2025 9:35 PM CDT Maya Uriostegui TRUCK DRIVER LAB BLOOD ORDERABLES Final Re sult Performing Organization Address [facility] Co de Phone Number ASHLEY AMEZCUA [address] [employer] [place] [address] * Ferritin (02/05/2025 4:17 PM CDT) [facility] Ferritin 39 15 - 150 ng/mL Blood 02/05/2025 4:17 PM CDT 02/05/2025 9:35 PM CDT Maya Uriostegui TRUCK DRIVER LAB BLOOD ORDERABLES Final Re sult Performing Organization Address [facility] Co de Phone Number ASHLEY AMEZCUA [address] Department of [employer] [place] [address] * Vitamin B12 (02/05/2025 4:17 PM CDT) [facility] Vitamin B12 637 230 - 1,250 pg/mL Blood 02/05/2025 4:17 PM CDT 02/05/2025 9:35 PM CDT Maya Uriostegui TRUCK DRIVER LAB BLOOD ORDERABLES Final Re sult Performing Organization Address [facility] Co de Phone Number ASHLEY AMEZCUA [address] Department of [employer] [place] [address] * Lipid panel (02/05/2025 4:17 PM CDT) [...] LAB BLOOD ORDERABLES Final Re sult ASHLEY [address] Department [place] [address] * (ABNORMAL) Comprehensive metabolic panel (02/05/2025 4:17 [...] 02/05/2025 9:35 PM CDT us Maya Uriostegui TRUCK DRIVER LAB BLOOD ORDERABLES Final Re sult [facility] [address] Department [place] [address] * Throat culture Throat (12/21/2024 10:19 AM CDT) Report Final Report: No growth of pathogens. Comment:Testing performed by : [facility], [address] [facility], [place]., [address] Throat 12/21/2024 10:1 9 AM CDT 12/21/2024 10:56 PM CDT Narrative [facility] - 12/22/2024 10:04 PM CDT Testing performed by [facility] Microbiology Laboratory ([phone]). Sapphire Laws NP LAB MICROBIOLOGY - GENERAL ORD ERABLES Final Result ASHLEY AMEZCUA [address] Department [place] [address] * POCT rapid strep A (12/21/2024 9:51 AM CDT) [facility] Rapid Strep A, POC Negative Negative Swab 12/21/2024 9:51 AM CDT Sapphire Laws TRUCK DRIVER POINT OF CARE TEST ORDERABLES Final Result * N. gonorrhoeae/C. trachomatis Amplification Urine (08/24/2024 1:38 PM DIRECTOR OF VOCATIONAL GUIDANCE) [facility] C. trachomatis Not Detected [facility] N. gonorrhoeae Not Detected ASHLEY [facility] Comment: Interpretive Data This assay detects Chlamydia trachomatis and Neisseria gonorrhoeae by nucleic acid amplification testing (NAAT). This assay has been cleared by the [place] Food and Drug administration. The performance characteristics of this test have been verified by the [facility] Molecular Infectious Disease laboratory. The performance characteristics of this test have not been evaluated in individuals less than 14 years of age. Current Interpretive Data was last revised on 2023. Urine (None) 08/24/2024 1:38 PM DIRECTOR OF VOCATIONAL GUIDANCE 08/24/2024 2:19 PM DIRECTOR OF VOCATIONAL GUIDANCE Renita Chong NP LAB MICROBIOLOGY - GENERAL ORDERABLES Final Result ASHLEY [facility] [address] [facility] Department [place] [address] [facility] * Hepatitis C antibody Blood (07/31/2024 10:20 AM CDT) [facility] Hep C Ab Nonreactive Nonreactive Comment:Antibodies to HCV no t detected. Does NOT exclude the possibility of recent exposure to HCV. Current interpretive data was last revised on 22 Blood 07/31/2024 10:2 0 AM CDT 07/31/2024 11:35 AM CDT Renita Chong TRUCK DRIVER LAB MICROBIOLOGY - GENERAL ORDERABLES Final Result ASHLEY THOMAS P[facility] Department [place] [address] * Pap with reflex to High Risk HPV (03/19/2023 11:54 AM CDT) CLINICAL INFORMATION: Sis Arana Comment:Routine exam LMP Sis Arana Comment:[id number] Previous Pap Sis Arana Comment:NONE GIVEN Prev. Bx Sis Arana Comment:CE SOURCE: Sis Arana Comment:Cervix, Endocervix Pap, specimen adequacy Sis Arana Comment: Satisfactory for evaluation. Endocervical/transformation zone component present. HPV interp Sis Arana Comment:Negative for intraep ithelial lesion or malignancy. COMMENTS Sis Arana Comment: This Pap test has been evaluated with computer assisted technology. Advertising Agent Rui Guzman Comment: JAF, CT(ASCP) CT Screening Location: [place] [address] [place] [address] Review motor racer Sis Arana Comment: DDS, CT(ASCP) CT screening location: [place] [address] [place] [address] Comment Sis Arana Comment: EXPLANATORY NOTE: The [...] 03/22/2023 6:46 AM CDT us Annabella Peralta TRUCK DRIVER LAB CYTOLOGY ORDERABLES Final Re sult [facility] Organization Address City/State/ZIP Co de Phone Number [facility] [employer] [facility] [address] [place] [address] from Last 3 Months or Most Recently Relevant to Health Maintenance Insurance [facility] [employer] [facility] Advance Directives For more information, please contact: [phone] * Full Code (Latest Code Status on File) Date Activated Date Inactivated Comments 09/24/2024 2:46 AM 09/26/2024 7:22 PM * Full Code Date Activated Date Inactivated Comments 09/23/2024 11:02 AM 09/24/2024 2:46 AM Full CPR in case of cardiopulmonary arrest Care Teams Cattle Driver Relationship Specialty Start Date End Date Maya Uriostegui NP [address] [address] PCP - General Internal Medicine 02/05/25
--- NOTE | 2025-02-16 06:56 | P.HP_ITS ---
H&P: HPI History of Present Illness Date/Time: 02/16/25 06:56 Chief Complaint: Posttonsillectomy bleed Review of Systems Constitutional: Constitutional: Reports as per HPI ENT: Reports as per HPI Comments: Bleeding from the throat PMFSH Past Medical History Medical History (Updated 02/16/25 @ 06:59 by Phoenix Bradford MD) Post tonsillectomy secondary hemorrhage Allergic rhinitis Chronic dysfunction of both eustachian tubes Cryptic tonsil Chronic tonsillitis Ovarian cyst Encounter for Depo-Provera contraception Surgical History Surgical History History of wisdom tooth extraction No pertinent past surgical history Family History Family History Mother Anxiety Thyroid disorder Grandparent Lung cancer Hypertension Heart disease Cerebrovascular accident Thyroid disorder Social History Social History (Updated 01/08/25 @ 13:41 by Judy Botello) Social History: Caffeine- coffee Smoking status: Never smoker Tobacco type: e-cigarettes/vaping Smoking end date: 02/02/23 Alcohol intake: never Substance use: never Substance use type: does not use Do You Feel Safe in your Home?: Yes Lack of Transportation: No Lack of Food: Never True Current Housing: I Have Housing Concerned About Future Housing: No Difficulty Paying Gas/Electric Bills: No Difficulty Paying for Meds: No Currently Unemployed: No Education: Associate Degree Difficulty w/ Childcare or Family Care: No Living arrangements: other Additional living arrangements comments: partner Occupation/Education: occupation Additional occupation/education comments: Visiting [place] Gender identity (if verbalized by the patient): Female Sexual Orientation (if Verbalized by the Patient): Straight or Heterosexual Spiritual care concerns: No Meds Home Medications and Allergies Home Medications ?Medication ?Instructions ?Recorded ?Confirmed ?Type azelastine 137 mcg (0.1 %) nasal 1 spray intranasal Q12H 3 months 01/08/25 02/02/25 Rx spray #30 mL vit no.95-ferrous 1 tablet PO DAILY 02/02/25 02/02/25 History fumarate 28 mg-folic acid 800 mcg tablet () oxycodone-acetaminophen 5 mg-325 1 tablet PO Q6H PRN pain #40 tabs 02/09/25 Rx mg tablet (Percocet) Allergies Allergy/AdvReac Type Severity Reaction Status Date / Time azithromycin Allergy Severe Hives Verified 02/16/25 05:22 clindamycin Allergy Mild Rash Verified 02/16/25 05:22 doxycycline Allergy Mild rash Verified 02/16/25 05:22 Penicillins Allergy Mild unknown Verified 02/16/25 05:22 amoxicillin AdvReac Rash Verified 02/16/25 05:22 Vital Signs Vital Signs - 24 hr 02/16/25 05:33 02/16/25 05:42 Temperature 36.6 C Pulse Rate 103 H 82 Respiratory Rate 14 17 Blood Pressure 113/74 113/74 Pulse Oximetry 99 100 Exam Const: General: cooperative, healthy appearing, comfortable, no acute distress, well developed, alert, awake and Physically active Orientation/consciousness: oriented to person, oriented to place, oriented to time and patient oriented x3 HENMT: Head: normocephalic and atraumatic Ears: external ears normal and EAC's normal Face/Nose/Sinus: Normal external nose present and Normal nares present Mouth: Yes Normal oral and palatal mucosa present, Yes lip normal and Yes tongue normal Other: Right-sided tonsillar fossa clot with active bleeding H&P: Results Labs Labs: Short CBC 02/16/25 Range/Units 06:11 WBC 4.7 (4.5-10.0) K/mm3 Hgb 13.9 (12.0-15.0) g/dL Hct 42.9 (37.0-47.0) % Plt Count 207 (150-375) k/mm3 [facility] 02/16/25 06:11 Sodium 142 Potassium 3.6 Chloride 101 Carbon Dioxide 26 BUN 20 H Creatinine 0.52 L Glucose 76 Calcium 9.9 Assessment and Plan Assessment and plan (1) Post tonsillectomy secondary hemorrhage: Code(s): J95.830 - Postprocedural hemorrhage of a respiratory system organ or structure following a respiratory system procedure Status: Acute Plan 24-year-old female status post tonsillectomy on 02/09/2025 with post tonsillectomy bleed. We will to control of tonsil bleed under general anesthesia
--- NOTE | 2025-02-16 07:00 | WPDHPUPDATE1 ---
History and Physical Update Update Date/Time: 02/16/25 07:00 History and Physical has been reviewed, including an updated exam of the patient. There are NO changes in the patient's condition. Risks, benefits, and alternatives have been discussed and questions answered. Patient agrees to proceed with procedure.
[2025-02-16] MEDS: LACTATED RINGERS 1,000 ML 30 ML IV CONT ×2 (07:13→09:40)
--- NOTE | 2025-02-16 07:14 | P.PNAN_ITS ---
Anes - Initial Pre Proc Eval Procedure: Operation Date: 02/16/25 07:30 Proposed Procedures p Post Op Tonsil Bleed - Phoenix Bradford MD Date/Time: 02/16/25 07:14 Surgeon: Phoenix Bradford MD Pre Op Diagnosis: post op bleeding Patient Data Age: 24 Gender: F Height: 1.57 m Weight: 46.5 kg Last Vital Signs Temp 36.6 C 02/16/25 05:33 Pulse 82 02/16/25 05:42 Resp 17 02/16/25 05:42 BP 113/74 02/16/25 05:42 Pulse Ox 100 02/16/25 05:42 Allergies Allergy/AdvReac Type Severity Reaction Status Date / Time azithromycin Allergy Severe Hives Verified 02/16/25 05:22 clindamycin Allergy Mild Rash Verified 02/16/25 05:22 doxycycline Allergy Mild rash Verified 02/16/25 05:22 Penicillins Allergy Mild unknown Verified 02/16/25 05:22 amoxicillin AdvReac Rash Verified 02/16/25 05:22 Home Medications ?Medication ?Instructions ?Recorded ?Confirmed ?Type azelastine 137 mcg (0.1 %) nasal 1 spray intranasal Q12H 3 months 01/08/25 02/02/25 Rx spray #30 mL vit no.95-ferrous 1 tablet PO DAILY 02/02/25 02/02/25 History fumarate 28 mg-folic acid 800 mcg tablet () oxycodone-acetaminophen 5 mg-325 1 tablet PO Q6H PRN pain #40 tabs 02/09/25 Rx mg tablet (Percocet) Laboratory Tests 02/16/25 06:11 WBC 4.7 K/mm3 (4.5-10.0) RBC 4.85 M/mm3 (4.2-5.4) Hgb 13.9 g/dL (12.0-15.0) Hct 42.9 % (37.0-47.0) MCV 88.5 fl (80-100) MCH 28.7 pg (26-34) MCHC 32.4 g/dl (32-36) RDW 11.9 % (11.5-14.5) Plt Count 207 k/mm3 (150-375) MPV 10.7 H fl (7.4-10.4) Immature Gran % (Auto) 0.2 % (0-0.5) Neut % (Auto) 49.0 % (45.5-73.1) Lymph % (Auto) 38.9 % (18.3-44.2) [place] % (Auto) 9.4 H % (2.6-8.5) Eos % (Auto) 2.1 % (0-4.4) Baso % (Auto) 0.4 % (0.2-1.2) Lymph # (Auto) 1.83 K/mm3 (0.9-3.2) [place] # (Auto) 0.4 K/mm3 (0.1-0.6) Eos # (Auto) 0.1 K/mm3 (0-0.3) Baso # (Auto) 0.0 K/mm3 (0.0-0.1) Abs Immat Gran (auto) 0.01 K/mm3 (0.00-0.031) Absolute Neuts (auto) 2.3 K/mm3 (1.3-6.7) Absolute Nucleated RBC 0.000 K/mm3 (0.0-0.012) Nucleated RBC % 0.0 % (0.0-0.2) PT 14.1 Seconds (11.1-14.7) INR 1.0 Sodium 142 mmol/L (137-145) Potassium 3.6 mmol/L (3.4-5.0) Chloride 101 mmol/L (98-107) Carbon Dioxide 26 mmol/L (22-30) Anion Gap 15 H mmol/L (4-12) BUN 20 H mg/dL (7-17) Creatinine 0.52 L mg/dL (0.7-1.0) Estim Creat Clear Calc 103 ml/min Estimated GFR > 60 (59 - ) Glucose 76 mg/dL (65-110) Calcium 9.9 mg/dL (8.4-10.2) Patient hx anesthesia problems: none Family hx anesthesia problems: none Results Review: All pre-operative results and documents have been reviewed as part of the pre- operative evaluation. [facility] Past Medical History Medical History Post tonsillectomy secondary hemorrhage Allergic rhinitis Chronic dysfunction of both eustachian tubes Cryptic tonsil Chronic tonsillitis Ovarian cyst Encounter for Depo-Provera contraception Surgical History Surgical History History of wisdom tooth extraction No pertinent past surgical history Family History Family History Mother Anxiety Thyroid disorder Grandparent Lung cancer Hypertension Heart disease Cerebrovascular accident Thyroid disorder Social History Social History Social History: Caffeine- coffee Smoking status: Never smoker Tobacco type: e-cigarettes/vaping Smoking end date: 02/02/23 Alcohol intake: never Substance use: never Substance use type: does not use Do You Feel Safe in your Home?: Yes Lack of Transportation: No Lack of Food: Never True Current Housing: I Have Housing Concerned About Future Housing: No Difficulty Paying Gas/Electric Bills: No Difficulty Paying for Meds: No Currently Unemployed: No Education: Associate Degree Difficulty w/ Childcare or Family Care: No Living arrangements: other Additional living arrangements comments: partner Occupation/Education: occupation Additional occupation/education comments: [employer] Gender identity (if verbalized by the patient): Female Sexual Orientation (if Verbalized by the Patient): Straight or Heterosexual Spiritual care concerns: No Anes - Eval Final PreProcedure Day of Procedure 02/16/25 07:14 Patient weight: normal Heart: regular rate and rhythm Lungs: clear to auscultation Airway: Mallampati scale class II Neurological: alert and oriented Last oral intake: >/= 8 hours ASA classification: II Emergent: yes Anesthetic plan: proceed Anesthesia type and monitoring: general ETT and standard monitoring Results Review: All pre-operative results and documents have been reviewed as part of the pre- operative evaluation. Informed Consent: The patient's anesthetic plan and its attendant risks and benefits were discussed with the patient/family/POA. Questions were solicited and answers provided to the satisfaction of the patient/family/POA.
[2025-02-16] MEDS: ceFAZolin SODIUM 1 GM VIAL IV PUSH (07:32)
--- NOTE | 2025-02-16 08:27 | PM.OP ---
Procedure Note - Brief Procedure Note - Brief Date of procedure: 02/16/25 post op bleeding Procedure performed: POST TONSILLECTOMY BLEED CONTROL UNDER GA Surgeon: Phoenix Bradford MD Anesthesia: GLMA Description of procedure: UNDER GA ,THE RIGHT SIDE BLEEDING TONSIL BED WAS CAUTERIZED USING BIPOLAR CAUTER Estimated blood loss (mL): 5 (ML) Drains: No Packing: No Complications: No immediate complications Condition: Stable Disposition: PACU
[2025-02-16] MEDS: fentaNYL CITRATE INJ (*CRX) 100 MCG/2 ML VIAL 25 MCG IV PUSH ×2 (08:54→09:00)
--- NOTE | 2025-02-16 09:10 | W.PM.PROC2 ---
Procedure Note - Detailed Date of Procedure 02/16/25 Pre-op Diagnosis post op bleeding Post-op Diagnosis Same Procedure Performed Control of oropharyngeal hemorrhage Surgeon Phoenix Bradford MD Anesthesia General Indications Secondary post-tonsillectomy hemorrhage Findings right tonsillar fossa had 2 bleeding points in the middle and the lower pole of the tonsillar bed a clot was found in the middle part of the right tonsillar fossa Description of Procedure Following documented informed consent and a discussion of procedural risks, including pain and bleeding recurrence, the patient was taken to the operating room. Under general anesthesia with endotracheal intubation, a time-out was performed to confirm patient identity, procedure, and other safety measures. A McGivor retractor provided access to the oral cavity, revealing the bleeding originated from the right tonsillar fossa. A clot in the mid-portion of this area was removed with a Yanker suction tip, and bipolar cautery was used to achieve hemostasis. A raw, oozing area at the lower pole was also addressed with suction Bovie cautery. After closing and reopening the retractor after five minutes confirmed no further bleeding, the procedure was complete. The patient was extubated and transferred to the PACU with an estimated blood loss of 5 mL. Estimated Blood Loss 5 (ml) Drains No Packing No Complications None Condition Stable Disposition PACU [facility] Billing Surgery - Charge Forward: Surgery Billing
--- NOTE | 2025-02-16 11:02 | ADMGEN ---
This patient, Merly Vitale, was admitted to 3 Med Surg Room 311-01. Patient/family oriented to hospital policies and general routines including ID bracelet, bed and alarms, visiting hours, pain management, procedures, bathroom and other care routines, personal items, smoking policy, room service/diet, and visiting hours. Information on how to activate the Rapid Response Team has been discussed. Patient/Family are encouraged to report perceived risks to care and to ask questions if they do not understand what they are told or what they should do.
[2025-02-16] MEDS: SODIUM CHLORIDE 0.9% IV 1,000 ML 80 ML IV CONT (11:06)
[2025-02-16] MEDS: ACETAMINOPHEN ELIXIR 325 MG/10.15 ML UDC 650 MG PO (11:14)
[2025-02-16 13:14] LABS: Hematocrit 39.3 % (37.0-47.0); Hemoglobin 12.7 g/dL (12.0-15.0)
--- NOTE | 2025-02-16 13:56 | PM.DS ---
DS: Admitting Diagnosis Discharge Date secondary post tonsillectomy bleed Admitting Diagnosis secondary post tonsillectomy bleed DS: Discharge Diagnosis Discharge Diagnosis Plan 24-year-old female with post tonsillectomy bleed. patient bleeding was controlled in the OR under general anesthesia. DS: Summary Hospital Course Reason for hospitalization: Post tonsillectomy secondary bleed Hospital Course: 24-year-old female status post tonsillectomy on 02/09/2025 started bleeding on 02/16/2025 at 3:00 a.m.. 1. Patient was seen in the emergency room [facility] and a clot was seen in the right tonsillar fossa with Active bleeding. 2. A decision was made to take the patient to the operating room and to control the the bleeding . 3. patient bleeding was successfully controlled using bipolar cautery suction cautery . 4. Patient was kept admitted for observation where we started clear fluid diet until 12:00 noon . then liquid diet was given which she tolerated well 5.Patient will be discharged at 18:00 02/16/2025 6.f/p in 3 days in the clinic 7 .Discharge medication were provided as print out (tylenol codeine to be used as needed for throat pain ) Time spent discussing smoking cessation with patient: 3 to 10 minutes Status at Discharge Functional status at discharge: independent ambulation Overall status at discharge: patient is back to baseline Time Spent with Patient Time attestation: Total time spent providing and/or coordinating discharge services: Time spent: Less than 30 minutes Exam Narrative: No bleedinbg could be seen in both tonsillar bed Const: General: comfortable HENMT: Ears: TM's normal bilaterally Eyes: General: appearance normal, both eyes and all related structures Neck: Neck: supple Resp: Effort & Inspection: normal respiratory effort Cardio: Rate: regular rate Psych: Mental Status: mental status grossly normal DS: Data Data Completed and Pending Labs on day of discharge: Labs from last 24 hours 02/16/25 02/16/25 13:04 06:11 WBC 4.7 RBC 4.85 Hgb 12.7 13.9 Hct 39.3 42.9 MCV 88.5 MCH 28.7 MCHC 32.4 RDW 11.9 Plt Count 207 MPV 10.7 H Immature Gran % (Auto) 0.2 Neut % (Auto) 49.0 Lymph % (Auto) 38.9 [place] % (Auto) 9.4 H Eos % (Auto) 2.1 Baso % (Auto) 0.4 Lymph # (Auto) 1.83 [place] # (Auto) 0.4 Eos # (Auto) 0.1 Baso # (Auto) 0.0 Abs Immat Gran (auto) 0.01 Absolute Neuts (auto) 2.3 Absolute Nucleated RBC 0.000 Nucleated RBC % 0.0 PT 14.1 INR 1.0 Sodium 142 Potassium 3.6 Chloride 101 Carbon Dioxide 26 Anion Gap 15 H BUN 20 H Creatinine 0.52 L Estim Creat Clear Calc 103 Estimated GFR > 60 Glucose 76 Calcium 9.9 Procedures/Treatments: Control of oropharyngeal hemorrhage Discharge Plan Discharge Attending physician on discharge: Phoenix Bradford Discharging Clinician: Phoenix Bradford Patient Disposition: Home Activity: may shower and no straining Diet: other - see discharge instructions Discharge Instructions: soft cold diet for the next 7 days Patient Language: Bengali Stand Alone Forms: General Discharge Instructions Follow-up/Referrals: Heriberto,Dima Briscoe MD [Primary Care Provider] - Phoenix Bradford MD [Physician] - Discharge Medications: Continued PNV cmb#95-ferrous fumarate-FA [] 28 mg iron- 800 mcg tablet 1 tablet PO DAILY Discontinued oxycodone-acetaminophen [Percocet] 5-325 mg tablet 1 tablet PO Q6H PRN (Reason: pain) Qty: 40 0RF Rx Instructions: to be taken for severe pain 7/10 and above No Action acetaminophen-codeine 120 mg-12 mg /5 mL (5 mL) solution 5 ml PO Q6H PRN (Reason: pain) Qty: 100 0RF Date of admission: 02/16/25 10:53 Primary Care Provider: Heriberto,Dima Briscoe Admitting Provider: Phoenix Bradford Attending physician on admission: Phoenix Bradford Condition: Stable Quality If No VTE Prophylaxis Answer both mechanical and pharmacologic: Reason no mechanical VTE proph: low risk/not indicated
[2025-02-16] MEDS: ACETAMINOPHEN/CODEINE ELIXIR (*CRX) 120-12 MG/5 ML UDC PO (16:14)
== END 2025-02-16 18:00 | disposition home or self-care (01) ==
LOC: ANHED 06:29 → ANHSURGERY 06:46 → ANH3MEDSUR 12:00
PROVIDERS: Admitting Provider Otolaryngology Otolaryngology/Facial Plastic Surgery; Emergency Provider Family Medicine; PCP Family Medicine; Visit Provider Otolaryngology Otolaryngology/Facial Plastic Surgery
PROC: (CPT 42960; principal; 2025-02-16 07:30)
DX: J95.830 Postprocedural hemorrhage of a respiratory system organ or structure following a respiratory system procedure (principal); Y83.8 Other surgical procedures as the cause of abnormal reaction of the patient, or of later complication, without mention of misadventure at the time of the procedure
CPT/HCPCS: 42960; 36415; 80048; 85014; 85018; 85025; 85610; 96361; 96374; 96375; 99285; A9270; G0378; G0379; J0690; J1100; J2003; J2405; J2704; J3010; J7030; J7120

== ENCOUNTER 2025-10-06 19:09 | Emergency (ER) | payer OTHER, SELFPAY ==
--- OUTSIDE RECORDS SUMMARY | 2025-10-06 19:11 | XMS_ITS | Encounter Summary ---
Author Organization [facility] Address [address] [place] [address] Care Team Providers Care Works Manager Name Role Phone Hilda Del Rio MD Primary Care Provider [phone] Reason for Visit * Reason Comments Medication Refill Encounter Details Date Type Department Care Team (Late st Contact Info) Description 11/20/2013 Refill [place] [address] [place] [id number] Saundra Suarez MD [address] [place] [address] [address] [place] [id number] Social History Tobacco Use Types Packs/Day Years Used Date Smoking Tobacco: Never Smokeless Tobacco: Never Alcohol Use Standard Drinks/Week Comments No 0 (1 standard drink = 0.6 oz pur e alcohol) Comments No Sex and Gender Information Value Date Recorded Sex Assigned at Not on file 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
--- OUTSIDE RECORDS SUMMARY | 2025-10-06 19:11 | XMS_ITS | Data Portability ---
Author Organization [facility] [place] Address [address] [place] [address] Assessment No assessment recorded. Plan of Treatment Reminders Order Date Submit Date Provider Last Modified By Organization Details Last Modified Time Details Appointments None recorded. Lab None recorded. Referral None recorded. Procedures None recorded. Surgeries None recorded. Imaging US, obstetric, transvagina l 2023 [id number], [address], [place], [address], 20:58:23 US, obstetric, transvagina l [address], [address], [address], [place], [address], 22:05:31 Medication Orders None recorded. Patient TargetsNo targets recorded. Patient InstructionsNo instructions recorded. Reason for Referral None Reported. Results Created Date Observation Date Name Description Value Unit Range Abnormal Flag Note LastModifiedBy Organization Detail LastModifiedTime 02/21/20 24 02/21/2024 US, obste tric, trans vagin al No observ ation record ed. [email or web address] [place] [address], [place], [address], 02/21/2024 16:48:36 02/21/20 24 02/21/2024 US, obste tric, follo w-up No observ ation record ed. [email or web address] [address], [place], [address], 02/22/2024 12:18:58 02/29/20 24 02/29/2024 US, obste tric, trans vagin al No observ ation record ed. [email or web address] [place] [address], [place], [address], 02/29/2024 12:25:35 02/29/20 24 02/29/2024 US, obste tric, trans vagin al No observ ation record ed. [email or web address] [address], [place], [address], 03/01/2024 13:03:17 Result Notes None recorded. Procedures Surgical History Date Name Laterality Status Provider Name and Address Organization Details Recorded Time 4 Date of Last Pap Smear completed [facility] 02/21/2024 16:11:17 3 Date of Last Mammogram completed [facility] 02/21/2024 16:11:17 Imaging Results None recorded. Procedure Notes None recorded. Medical Equipment None Reported. Allergies Allergen ID Allergen Name Allergen Category Reaction Reaction Severity Criticality Documentation Date Start Date Code Code System Note Provider Name and Address Organization Details Recorded Time 30255 Product containin g penicilli n (product) medicatio n Not available Not available Not available 02/21/[address] [facility] 4 16:11:32 Medications Name Sig Start Date Stop [...] Body mass index (BMI) Body weight Systolic And Diastolic Provider Name and Address Organization Details Last Updated DateTime 02/21/2024 154.94 cm 18.9 kg/m2 11855.24 g 104/69 mm[Hg] Corinna Johnstonen [facility] 02/21/2024 16:11:06 Social History Question Answer Notes LastModified by Organizat ion Details LastModified Time Are You Blind Or Do You Have Difficulty Seeing? No Information not available 02/21/2024 What Is Your Level Of Caffeine Consumption? Moderate [email or web address] Information not available 02/21/2024 How Much Tobacco Do You Chew? None Information not available 02/21/2024 In The 14 Days Before Symptom Onset, Have You Had Close Contact With A Laboratory-confirme d COVID-19 While That Case Was Ill? No [email or web address] Information n ot available 02/21/2024 In The 14 Days Before Symptom Onset, Have You Had Close Contact With A Person Who Is Under Investigation For COVID-19 While That Person Was Ill? No [email or web address] Information not available 02/21/2024 Have You Been To An Area Known To Be High Risk For COVID-19? No [email or web address] Information not available 02/21/2024 Are You Deaf Or Do You Have Serious Difficulty Hearing? No [email or web address] Information not available 02/21/2024 What Type Of Diet Are You Following? REGULAR [email or web address] Information n ot available 02/21/2024 What Is The Highest Grade Or Level Of School You Have Completed Or The Highest Degree You Have Received? KJ13473-2 [email or web address] Information not available 02/21/2024 Are There Any Guns Present In Your Home? No [email or web address] Information not available 02/21/2024 Do You Use Protection During Sex? No [email or web address] Information not available 02/21/2024 Do You Use Your Seat Belt Or Car Seat Routinely? Yes [email or web address] Information not available 02/21/2024 Are You Sexually Active? Yes Information not available 02/21/2024 Do You Have Smoke And Carbon Monoxide Detectors In Your Home? No [email or web address] Information not available 02/21/2024 How Much Tobacco Do You Smoke? No Information not available 02/21/2024 Do You Use Sunscreen Routinely? No [email or web address] Information not available 02/21/2024 Have You Used IV Drugs? No [email or web address] Information not available 02/21/2024 Do You Have Difficulty Walking Or Climbing Stairs? No [email or web address] Information not available 02/21/2024 Sex: Unknown Functional Status Question Answer Note LastModified by Organizat ion Details LastModified Time Do you use any illicit or recreational drugs? No [email or web address] Information not available 02/21/2024 What is your level of alcohol consumption? None [email or web address] Information not available 02/21/2024 Are you able to walk independently without assistance or assistive devices? YESWOREST [email or web address] Information not available 02/21/2024 Are you able to care for yourself independently? Yes [email or web address] Information not available 02/21/2024 Do you have difficulty dressing, bathing, grooming, or toileting? No [email or web address] Information not available 02/21/2024 What is your exercise level? Occasional Information not available 02/21/2024 Mental Status Question Answer Note LastModified by Organization D etails LastModified Time Do you feel stressed (tense, restless, nervous, or anxious, or unable to sleep at night)? [id number] [email or web address] Information not available 02/21/2024 Family History Nothing Reported. Medical History Condition Response Other N Blood Transfusion N Dermatologic Disorders N Gestational Diabetes N Anxiety Disorder N Autoimmune disease N Arthritis N Polyps N Infertility N Acid Reflux (GERD) N Cancer N Varicosities N Stroke N Neurologic/Epilepsy N Fibromyalgia N Headaches N Kidney Disease N Heart Problems N Kidney or Bladder Problems N Eating Disorder N Art (IVF or FET) N Hepatitis/Liver Disease N No Past Medical History N Urinary Tract Infection N Asthma N Trauma/Violence N Thrombophilias N Allergies (Food, seasonal, environmental ) N Breast Cancer N Drug/Latex Allergies/Reactions N Lung Disease N Defects or Inherited Disease N Breast Problem N Hematologic disorders N Anesthesia Complications N History of STI N Deep Vein Thrombosis N Polycystic ovary syndrome N History of abnormal pap N Endometriosis N High Cholesterol N Thyroid Problems N GI Problems N Anemia N Psychiatric Illness N Ovarian Cancer N Diabetes N Pulmonary (TB, Asthma) N Eczema N Abuse/Domestic Violence N Depression/ depression N Heart Disease N Pre-Eclampsia N Hypertension N Osteoporosis N Gynecological History Statement/Question Response Abnormal Pap [...] Diagnosis SNOMED-CT Code Diagnosis ICD10 Code Diagnosis IMO Codes Diagnosis Note [id number] Abdulaziz Benedict MD [place] [address] [address] 02/21/2024 15:07:11 02/21/2024 16:23:46 Uncertain viability of [id number] O36.80X0 O20.0 Z3A.01 [id number] Abdulaziz Benedict MD [place] [address],[facility] [place] [address] 02/21/2024 15:07:45 02/22/2024 01:44:20 of unknown location [id number] O26.90 This patient is a 23-year-ol d [...] up with her after the 2nd set. [id number] Abdulaziz Benedict MD [place] [address] [address] 02/29/2024 09:56:36 02/29/2024 10:35:51 screening [id number] Z36.87 Z3A.01 Health Concerns Section Related Observation LastModified by Organization Detai ls LastModified Time None Recorded Concern Status LastModified by Organization Details LastModified Time None Recorded Advance Directives Directive None Recorded Payers Insurance Date Sequence Insurance Name Policy Number Policy Grimm Covered Member ID Grimm Member ID Guarantor Name 02/22/2024 1 [facility] [id number] Merly Vitale [id number] Merly Vitale 02/22/2024 1 [facility] Merly Vitale [id number] Merly Vitale 03/13/2024 1 [facility] [id number] Charles Vitale [id number] Merly Vitale Notes Date Note Type Note [...] precautions for pain. Spent over 20 minutes [id number]-[id number]. More than 50% was counseling. We will perform serial HCGs. We will follow up with her after the 2nd set. Abdulaziz Benedict MD [address], [place], [address], [facility] 02/21/2024 22:41:54 OBGyn Episode No OBEpisode recorded.
--- OUTSIDE RECORDS SUMMARY | 2025-10-06 19:11 | XMS_ITS | Encounter Summary ---
Author Organization [facility] Address [address] [place] [address] Care Team Providers Care Assistant Community Director Name Role Phone Hilda Del Rio MD Primary Care Provider [phone] Encounter Details Date Type Department Care Team (Late st Contact Info) Description 05/02/2007 Outpatient Historical [facility] [address] [facility] [address] [phone] Gomez Car MD [address] 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
--- OUTSIDE RECORDS SUMMARY | 2025-10-06 19:11 | XMS_ITS | Encounter Summary ---
Author Organization [facility] Address [address] [place] [address] Phone Care Team Providers Care Gasoline Pump Installer Name Role Phone Hilda Del Rio MD Primary Care Pro vider Donna Chaudhary MD Primary Care Provider [phone] Ruperto Stovall MD Primary Care Provider + No, Physician Primary Care Provider [phone] Maya Uriostegui NP Primary Care Provider [phone] Encounter Details Date Type Department Care Team (Late st Contact Info) Description 12/13/2018 Ophth Exam [facility] Ophthalmology [address] [place] [address] 1[address] [place] [address] Christine Miles MD PhD [address] [id number] Social History Tobacco Use Types Packs/Day Years Used Date Smoking Tobacco: Never Smokeless Tobacco: Never Alcohol Use Standard Drinks/Week Comments No 0 (1 standard drink = 0.6 oz pur e alcohol) Comments No Sex and Gender Information Value Date Recorded Sex Assigned at Not on file 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 No le caryn. Care Teams Gasoline Pump Installer Relationship Specialty Start Date End Date Hilda Del Rio MD PCP - General 01/20/12 07/26/19 Donna Chaudhary MD PCP - General Pediatrics 07/27/19 10/20/21 Ruperto Stovall MD [address] [facility] [place] [address] PCP - General Internal Medicine 10/21/21 06/06/24 No, Physician PCP - General 06/07/24 02/04/25 Maya Uriostegui NP [address] [facility] [address] [place] [address] PCP - General Internal Medicine 02/05/25 documented as of this encounter
--- OUTSIDE RECORDS SUMMARY | 2025-10-06 19:11 | XMS_ITS | Encounter Summary ---
Author Organization [facility] Address [address] [place] [address] Care Team Providers Care Progress Developer Name Role Phone Hilda Del Rio MD Primary Care Provider [phone] Encounter Details Date Type Department Care Team (Latest Contact Info) Description 05/02/2007 Outpatient Historical [facility] JosepGomez MD [address] 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
--- OUTSIDE RECORDS SUMMARY | 2025-10-06 19:11 | XMS_ITS | Encounter Summary ---
Author Organization [facility] Address [address] [place] [address] Phone Care Team Providers Care Stereotype Finisher Name Role Phone Ruperto Stovall MD Primary Care Provider [phone] Provider, None Primary Care Provider Unavailabl e Provider, None Primary Care Provider Unavailabl e Encounter Details Date Type Department Care Team (Late st Contact Info) Description 09/22/2023 [facility] [address] [place] [address] Steve Del Cid, PAC [address] [place] [address] Encounter for pre-employment examination Social [...] QUANTIFERON-TB GOLD PLUS Routine 09/22/2023 10:50 AM APPLICATION LEAD Encounter for pre-employment examination documented in this encounter Results * QUANTIFERON-TB GOLD PLUS (09/22/2023 10:50 AM APPLICATION LEAD) NIL CONTROL 0.00 <8.01 IU/mL 09/24/2023 10:[address] [facility] TB ANTIGEN 1 0.04 <0.35 IU/mL 09/24/2023 10:[address] [facility] TB ANTIGEN 2 0.00 <0.35 IU/mL 09/24/2023 10:[address] [facility] MITOGEN CONTROL 10.00 >0.49 IU/mL 09/24/20 10:[address] [facility] INTEPRETATION TB NEGATIVE NEGATIVE, NEGATIVE (TB antigen response less than 25% of internal negative control value) 09/24/2023 10:[address] [facility] Comment:No immune response t o Mycobacterium tuberculosis antigens was noted. M. tuberculosis infection unlikely. Blood No Phlebotomy Charged / Unknown 09/22/2023 10:50 AM APPLICATION LEAD 09/22/2023 12:21 PM [facility] - 09/24/2023 10:22 AM [facility] A POSITIVE QUANTIFERON-TB GOLD PLUS RESULT [...] immunocompromised individuals. https://www.cdc.gov/tb/publications/guidelines/testing.htm us Steve Del Cid [facility] IMMUNOLOGY ORDERABLES Final Result [facility] [address] [place] [address], documented in this encounter Visit Diagnoses Diagnosis Encounter for pre-employment examination Health examination of defined subpopulation documented in this encounter Additional Health Concerns Infection Onset Date Last Indicated Resolved Time COVID - 19 08/21/2024 08/21/2024 08/21/2024 10:3 0 AM APPLICATION LEAD COVID - 19 09/18/2024 09/18/2024 09/18/2024 6:53 PM APPLICATION LEAD documented as of this encounter Care Teams Stereotype Finisher Relationship Specialty Start Date End Date Ruperto Stovall MD [address] [place] [address] PCP - General Internal Medicine 05/18/23 12/12/23 Provider, None [place] PCP - General 12/13/23 09/17/24 Provider, None [place] PCP - General 09/18/24 documented as of this encounter
--- OUTSIDE RECORDS SUMMARY | 2025-10-06 19:11 | XMS_ITS | Encounter Summary ---
Author Organization [facility] Address [address] [place] [address] Care Team Providers Care Eviscerator Name Role Phone Hilda Del Rio MD Primary Care Provider [phone] Encounter Details Date Type Department Care Team (Late st Contact Info) Description 05/02/2007 Outpatient Historical [facility] Support Serv. (Peds Cardiology-[facility]) [address] [place] [address] Gomez Car MD 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
--- OUTSIDE RECORDS SUMMARY | 2025-10-06 19:11 | XMS_ITS | Encounter Summary ---
Author Organization [facility] Address [address] [place] [address] Care Team Providers Care Treating Inspector Name Role Phone Hilda Del Rio MD Primary Care Provider [phone] Encounter Details Date Type Department Care Team (Late st Contact Info) Description 06/03/2007 Outpatient Historical [facility] JosepGomez alexander MD [address] 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
--- OUTSIDE RECORDS SUMMARY | 2025-10-06 19:12 | XMS_ITS | Clinical Summary ---
Author Organization [facility] Address [address] [place] [address] Phone Care Team Providers Care Hazard Mitigation Officer Name Role Phone Provider, None Primary Care [...] Comments Blood Pressure 123/81 09/19/2024 12:11 AM PROVIDER RELATIONS ADVOCATE Pulse 100 09/19/2024 12:11 AM PROVIDER RELATIONS ADVOCATE Temperature 36.9 C (98.4 F) 09/18/2024 5:49 PM PROVIDER RELATIONS ADVOCATE Respiratory Rate 18 09/19/2024 12:11 AM PROVIDER RELATIONS ADVOCATE Oxygen Saturation 100% 09/19/2024 12:11 AM PROVIDER RELATIONS ADVOCATE Inhaled Oxygen Concentration - - Weight 59.9 kg (132 lb) 09/18/2024 5:49 PM PROVIDER RELATIONS ADVOCATE Height 157.5 cm (5' 2) 09/18/2024 5:49 PM PROVIDER RELATIONS ADVOCATE Body Mass Index 24.14 09/18/2024 5:49 PM PROVIDER RELATIONS ADVOCATE Plan of Treatment Health Maintenance Due Date Last Done Comments Hepatitis C Virus (HCV) Screening 2001 Meningococcal B Immunization (1 of 2 - Standard) 2017 Pap Smear 2022 Influenza Immunization (#1) 2025 100 10/2023, 07/12/2019, 08/07/2015, Additional history exists SARS-COV-2 Immunization ( season) 2025 Pneumococcal Immunization Combined Aged Out 03/14/2003, 08/24/2002, 05/24/2002, Additional history exists No longer eligible based on patient's age to complete this topic Hepatitis B Immunization Completed 003, 08/24/2002, 01/04/2002, Additional history exists Varicella Immunization Completed 03/01/2007, 2002 Human Papillomavirus (HPV) Immunization Completed 12/28/2013, 08/21/2013, 06/26/2013 Meningococcal Immunization (ACWY) Completed 07/12/2019, 06/26/2013 DTaP/Tdap/Td Immunization Discontinued 2023, 06/22/2012, 03/01/2007, Additional history exists TdaP Immunization Completed 08/14/2024, 06/22/2012 Respiratory Syncytial Virus (RSV) Immunization (Adult) Completed 08/31/2024 Rotavirus Immunization Aged Out No lo nger eligible based on patient's age to complete this topic Insurance [place] * Guarantor: [employer] Account Type Relation to Patient Date of Phone Billing Address Institutional Other [address] [place] [address] Care Teams Hazard Mitigation Officer Relationship Specialty Start Date End Date Provider, None [place] PCP - General 09/18/24
--- OUTSIDE RECORDS SUMMARY | 2025-10-06 19:12 | XMS_ITS | Clinical Summary ---
Author Organization [facility] Address [address] [place] [address] Care Team Providers Care Cream Ripener Name Role Phone Maya Uriostegui NP Primary Care Provider [phone] Allergies Active Allergy Reactions Criticality Noted Date Comments Amoxicillin Rash Medium 12/21/2024 Azithromycin Hives Medium 08/11/2023 Clindamycin Rash,Hives Medium 12/13/2018 Doxycycline Hives Medium 11/08/2022 Penicillins Hives,Rash Medium 11/08/2022 Reaction: RASH as child Has tolerated cephalosporins Medications vit no.124/iron/fol ic ( VITAMIN ORAL) Take 1 capsule by mouth daily 02/09/2024 Active buPROPion XL (WELLBUTRIN XL) 150 mg 24 hr tablet Take 1 tablet (150 mg total) by mouth daily 30 tablet 3 02/20/2025 Active Active Problems Problem Noted Date Diagnosed Date Concentration deficit 02/23/2025 Assessment & Plan (02/23/2025 9:22 AM CDT): Discussed relationship of anxiety and concentrating. Encouraged patient to have full evaluation from Psychiatry. Discussed with her that given the comorbidities and previous negative evaluation from Psychiatry I would not be able to do a complete evaluation here. Provided her with information on someone who could treat her. Discussed off-label use of Wellbutrin for ADHD and concentration deficits. Side effects of Wellbutrin discussed with patient. She is in agreement to give it a try. -Referral given to psychiatry options who take her insurance -We will start Wellbutrin 150 mg daily S/P tonsillectomy 02/20/2025 Assessment & Plan (02/23/2025 9:22 AM CDT): History of pre-eclampsia 02/05/2025 Wellness examination 02/05/2025 [...] panel; Future Anxiety 02/05/2025 Assessment & Plan (02/23/2025 9:22 AM CDT): Discussed relationship of anxiety and effects on overall well-being. Patient has significant reasons to be in an anxious state. Advised patient discuss it with Psychiatry for evaluation of anxiety and ADHD. Given previous negative evaluation with Psychiatry for ADHD I will not be able to do a full inappropriate evaluation here in the office. Advised her that once she is diagnosed with ADHD I can prescribe medication as appropriate. Discussed potential for mood disorder. -Prescribe Wellbutrin 150 mg daily. -Follow up with me in six weeks. For evaluation of how you are doing on the medication. Assessment & Plan (02/05/2025 4:38 PM CDT): Patient would like to hold off on any anxiety medication at this time. BMI 20.0-20.9, adult 02/05/2025 Assessment & Plan (02/05/2025 4:38 PM CDT): History of ovarian cyst 05/12/2023 Assessment & Plan (09/10/2023 10:29 AM WIRE LATHER): Discussed nature of ovarian cyst. Patient aware to help manage/decrease occurrence of ovarian cyst a low-dose oral combined contraceptive pill is often therapeutic. Patient does not desire to be on a form of hormonal control at this time. Can use [id number] NSAIDs for pain relief if needed. Assessment [...] # Disposition: Follow up task visit with M scheduled 10/12. Desires discharge home today. Service Coverage These phones are service phones and carried 03/05 in house: R1 (first call) [phone] R1 alt (second call) [phone] R4 (Chief) [phone] Poor growth affecting management of mother in second trimester 07/31/2024 11/07/2024 Overview (09/11/2024): EFW 9%, AC 7%, PI wnl S/p counseling 08/14/2024 PI elevated- >99% 08/22/2024 PI 91% 09/11/2024 EFW 4%, AC 3%, PI >99% Plan: Continue q3 week growth US Weekly dopplers with BPP Weekly NSTs Delivery currently scheduled for 37w FK precautions reviewed Assessment & Plan (09/04/2024 10:19 AM WIRE LATHER): PI wnl, BPP 05/18, FKC precautions reviewed Assessment & Plan (07/31/2024 11:48 AM CDT): Reviewed increased risk of stillbirth with FGR and importance of weekly dopplers and 2x/weekly testing. FK precautions reviewed. Maternal varicella, non-immune 06/14/2024 11/07/2024 Overview (06/14/2024): For Varivax pp Supervision of high-risk pre gnancy, unspecified trimester 05/17/2024 11/07/2024 Overview (09/21/2024): [x] Full [facility] Care; [x] Blue Team Referring Provider: Danielito [...] 2/2 elevated dopplers [x] Place of delivery: [facility] [x] Epidural: likely desires but has questions- anesthesia consult placed [x] Blood Products: willing to accept [x] MOC: s/p counseling and pt declines and plans for condoms [x] Method of feeding: breast [x] Catering Coordinator: discussed, handouts previously provided [x] PP Depression Discussed: Assessment & Plan (09/11/2024 11:20 AM WIRE LATHER): Discussed that the plan could change at [...] weeks [x] 2x/weekly testing 2/2 FGR [x] [facility] and pediatric surgery consultation [x] IOL [...] Comments WISDOM TOOTH EXTRACTION AVULSION TOENAIL PLATE TONSILLECTOMY 02/09/2025 OTHER SURGICAL HISTORY 02/16/2025 blood clot emergency surgery Medical History Medical History Date Comments Anxiety [...] e alcohol) Social Connection and Isolation Panel Answer Date Recorded In a typical week, how many times do you talk on the phone with family, friends, or neighbors? Three times a week 09/25/20 How often do you get togethe r with friends or relatives? Three times a week 09/25/2024 How often do you attend [facility] or yarsani services? 1 to 4 times per year [...] things needed for daily living? No 09/25/2024 Eden Depression Scale Answer Date Recorded Eden Depression Scale Total 11 11/07/2024 The thought [...] any time in the past 12 m [facility], were you homeless or living in a [...] on file Legal Sex Female 11:28 PM WIRE LATHER Gender Identity Not on file Sexual Orientation [...] al Livin g 5 5 Inder w Adali manzano, Mini Esteves MD Complications:None Delivery Location:[facility] Main C ampus ([facility]LD) Last Filed Vital Signs Vital Sign Reading Time Taken Comments Blood Pressure 82/60 02/20/2025 2:18 PM CDT Pulse 91 02/20/2025 2:18 PM CDT Temperature 37.1 C (98.8 F) 02/20/2025 2:18 PM CDT Respiratory Rate 16 02/20/2025 2:18 PM CDT Oxygen Saturation 99% 02/20/2025 2:18 PM CDT Inhaled Oxygen Concentration - - Weight 47.2 kg (104 lb) 02/20/2025 2:18 PM CDT Height 157.5 cm (5' 2) 02/20/2025 2:18 PM CDT Body Mass Index 19.02 02/20/2025 2:18 PM CDT Plan of Treatment Health Maintenance Due Date Last Done Comments Meningococcal B Vaccine (1 o f 2 - Standard) 2017 Influenza Vaccine (#1) 2025 , 07/12/2019, 08/07/2015, Additional history exists Chlamydia and Gonorrhea (GC/ CT) Screening 08/24/2025 [...] 12/12/2002 HPV Vaccines Completed 12/28/2013, 08/11, 06/26/2013 Hepatitis C Screening Completed 07/31/2024 Medical Devices Implanted Type Area Electrical Sign Wirer Device Identifier Shelf Expiration Date Model / Serial / Lot Nexplanon Left: Arm Procedures Procedure Name Priority Date/Time Associated Diagnosis Comments N. GONORRHOEAE/C. TRACHOMATIS AMPLIFICATION Routine 08/24/2024 1:38 PM WIRE LATHER Supervision of high-risk , unspecified trimester HEPATITIS C ANTIBODY Routine 07/31/2024 10:20 AM CDT Supervision of high-risk , unspecified trimester PAP WITH REFLEX TO HIGH RISK HPV Routine 03/19/2023 11:54 AM CDT Well woman exam from Last 3 Months or Most Recently Relevant to Health Maintenance Results * N. gonorrhoeae/C. trachomatis Amplification Urine (08/24/2024 1:38 PM WIRE LATHER) C. trachomatis Not Detected [facility] N. gonorrhoeae Not Detected ASHLEY THOMAS Comment: Interpretive Data This assay detects Chlamydia trachomatis and Neisseria gonorrhoeae by nucleic acid amplification testing (NAAT). This assay has been cleared by the [place] Food and Drug administration. The performance characteristics of this test have been verified by the [facility] Molecular Infectious Disease laboratory. The performance characteristics of this test have not been evaluated in individuals less than 14 years of age. Current Interpretive Data was last revised on 2023. Urine (None) 08/24/2024 1:38 PM WIRE LATHER 08/24/2024 2:19 PM WIRE LATHER Renita Chong NP LAB MICROBIOLOGY - GENERAL ORDERABLES Final Result ASHLEY [facility] Department [place] [address] [facility] * Hepatitis C antibody Blood (07/31/2024 10:20 AM CDT) Hep C Ab Nonreactive Nonreactive Comment:Antibodies to HCV no t detected. Does NOT exclude the possibility of recent exposure to HCV. Current interpretive data was last revised on 22 Blood 07/31/2024 10:2 0 AM CDT 07/31/2024 11:35 AM CDT Renita Chong BURLAP SPREADER LAB MICROBIOLOGY - GENERAL ORDERABLES Final Result Performing Organization Address [facility] Co de Phone Number ASHLEY [facility] Department [place] [address] * Pap with reflex to High Risk HPV (03/19/2023 11:54 AM CDT) CLINICAL INFORMATION: Sis Arana Comment:Routine exam LMP Sis Arana Comment:[id number] Previous Pap Sis Arana Comment:NONE GIVEN Prev. Bx Sis Arana Comment:CE SOURCE: Sis Arana Comment:Cervix, Endocervix Pap, specimen adequacy Sis Araan Comment: Satisfactory for evaluation. Endocervical/transformation zone component present. HPV interp Sis Arana Comment:Negative for intraep ithelial lesion or malignancy. COMMENTS Sis Arana Comment: This Pap test has been evaluated with computer assisted technology. Digital Forensics Investigator Rui Guzman Comment: JAF, CT(ASCP) CT Screening Location: [place] [address] [place] [address] Review regional clinical research associate Sis Arana Comment: DDS, CT(ASCP) CT screening location: [place] [address] [place] [address] Comment Sis Arana Comment: EXPLANATORY NOTE: The [...] 4 AM CDT 03/22/2023 6:46 AM CDT Annabella Peralta [employer]URL[employer] SPREADER LAB CYTOLOGY ORDERABLES Final Re sult [facility] [employer] [address] [place] [address] from Last 3 Months or Most Recently Relevant to Health Maintenance Insurance [facility] [employer] [facility] Advance Directives For more information, please contact: [phone] * Full Code (Latest Code Status on File) Date Activated Date Inactivated Comments 09/24/2024 2:46 AM 09/26/2024 7:22 PM * Full Code Date Activated Date Inactivated Comments 09/23/2024 11:02 AM 09/24/2024 2:46 AM Full CPR in case of cardiopulmonary arrest Care Teams Cream Ripener Relationship Specialty Start Date End Date Maya Uriostegui NP [address] [address] PCP - General Internal Medicine 02/05/25"
--- OUTSIDE RECORDS SUMMARY | 2025-10-06 19:12 | XMS_ITS | Clinical Summary ---
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 Gender Identity Not on file Sexual Orientation [...] 9:38 AM CDT Height 149.9 cm (4' 11) 06/23/2017 3:28 PM CDT Body Mass Index [...] 2022 PAP SMEAR 2022 INFLUENZA VACCINE (#1) 2025 Procedures Procedure Name Priority Date/Time Associated Diagnosis Comments GC/CHLAMYDIA, URINE Routine 04/11/2017 8 :41 AM CDT from Last 3 Months or Most Recently Relevant to Health Maintenance Results * GC/CHLAMYDIA, URINE (04/11/2017 8:41 AM CDT) CHLAMYDIA DNA AMPLIFICATION NOT DETECTED Not Detected 04/12/2017 11:45 AM CDT [facility] GC DNA AMPLIFICATION NOT DETECTED Not Detected 04/12/2017 11:45 AM CDT [facility] Urine URINE SPECIMEN / Unknown Collection / Unknown 04/11/2017 8:41 AM CDT 04/11/2017 8:44 AM CDT [facility] - 04/12/2017 11:45 AM CDT Results should not be used for the evaluation of suspected sexual abuse or for other medico-legal indications. The only legally accepted results are from culture. Results cannot be used to assess therapeutic success or failure since nucleic acids may persist following antimicrobial therapy. This test was developed and its performance characteristics determined by [facility]. It has not been [...] Chavira MD URINE ORDERABLES COM Final Result [facility] CLIA# [id number] [address] [place] [address] from Last 3 Months or Most Recently Relevant to Health Maintenance Insurance RX [employer] RX Member Subscriber Plan / Payer (Ef fective for All Dates) Name:Merly Abad Relation to Subscriber:Child Name:Merly Abad Payer ID:Not on file Group ID:[id number] Type:RX Commercial Address: [place] RX [employer] PL[employer] (INTERNAL) [facility] [employer] [facility] OPTIONS PPO [id number] [facility] OPTIONS PPO [id number] Advance Directives For more information, please contact: [phone] * Full Code (Latest Code Status on File) Date Activated Date Inactivated Comments 06/23/2017 4:13 PM 06/29/2017 4:14 PM * Full Code Date Activated Date Inactivated Comments 06/09/2017 12:12 PM 06/16/2017 7:12 PM * Full Code Date Activated Date Inactivated Comments 04/08/2017 9:30 PM 04/14/2017 6:41 PM Care Teams Rig Mechanic Relationship Specialty Start Date End Date Hilda Del Rio MD PCP - General Pediatrics 09/17/13
[2025-10-06 19:25] VITALS: BP 138/92; PULSE 105; RESP 14; TEMP 36.6; O2SAT 100
[2025-10-06 19:31] LABS: BEDSIDEPREGUCG Negative (Negative); EDINFLUASCREEN Positive (Negative); EDINFLUBSCREEN Negative (Negative); EDSTREPNEGPOS1 Negative (Negative); EDUAAPPEAR Clear; EDUABILI Negative (Negative); EDUABLOOD Negative (Negative); EDUACOLOR1 Yellow; EDUAGLUCOSE Negative (Negative); EDUAKETONE Negative (Negative); EDUALEUKO Negative (Negative); EDUANITRATE Negative (Negative); EDUAPH 6.0; EDUAPROTEIN 1+ (Negative); EDUASPGRAVITY 1.025; EDUAUROBILI 0.2
[2025-10-06 19:33] LABS: EDCOVIDSCREEN Negative (Negative)
--- NOTE | 2025-10-06 19:43 | ED.URI ---
HPI - URI/Sore Throat General Chief Complaint: Urogenital-Female Stated Complaint: cough/congestion/throat Time Seen by Provider: 10/06/25 19:35 Source: patient and RN notes reviewed Mode of arrival: ambulatory Limitations: no limitations History of Present Illness HPI Narrative: 24-year-old female presents Express Care complaining of upper respiratory symptoms for 8 days. Patient reports having cough, congestion, body aches, chills, fevers. Also says the last 8 days she has also had urinary frequency but denies any dysuria, abdominal pain, suprapubic pain, hesitancy, or any other symptoms. Patient taking [id number] cold and flu medication of relief. Patient says her daughter is currently in the hospital with influenza a. Patient denies any significant past medical problems. Related Data Allergies Allergy/AdvReac Type Severity Reaction Status Date / Time azithromycin Allergy Severe Hives Verified 10/06/25 19:18 clindamycin Allergy Mild Rash Verified 10/06/25 19:18 doxycycline Allergy Mild rash Verified 10/06/25 19:18 Penicillins Allergy Mild unknown Verified 10/06/25 19:18 amoxicillin AdvReac Rash Verified 10/06/25 19:18 Review of Systems Review of Systems: CONSTITUTIONAL: Positive for fever, body aches, chills,. Negative for sweats. EYES: Denies visual changes, redness, or discharge. ENT: Denies rhinorrhea, or otalgia. Positive for congestion, sore throat. CARDIOVASCULAR: Denies chest pain, palpitations, or edema. RESPIRATORY: Positive for cough. Negative for wheezing or dyspnea. GASTROINTESTINAL: Denies abdominal pain, nausea, vomiting, or diarrhea. GENITOURINARY: Denies dysuria or hematuria. Positive for frequency. SKIN: Denies rash or itching. MUSCULOSKELETAL: Denies back pain, joint pain, or myalgia. NEUROLOGIC: Denies headache, numbness, or weakness. PSYCHIATRIC: Denies anxiety or depression. All other systems reviewed are negative, except as documented in HPI. [facility] Past Medical History Medical History Postoperative pain Post tonsillectomy secondary hemorrhage Allergic rhinitis Chronic dysfunction of both eustachian tubes Cryptic tonsil Chronic tonsillitis Ovarian cyst Encounter for Depo-Provera contraception Surgical History Surgical History Status post tonsillectomy History of wisdom tooth extraction No pertinent past surgical history Family History Family History Mother Anxiety Thyroid disorder Grandparent Lung cancer Hypertension Heart disease Cerebrovascular accident Thyroid disorder Social History Social History Social History: Caffeine- coffee Smoking status: Never smoker Second hand tobacco smoke exposure: No Alcohol intake: never Substance use: never Substance use type: does not use Lack of Transportation: No Lack of Food: Never True Current Housing: I Have Housing Concerned About Future Housing: No Difficulty Paying Gas/Electric Bills: No Difficulty Paying for Meds: No Currently Unemployed: No Education: Bachelor's Degree Difficulty w/ Childcare or Family Care: No Living arrangements: other Additional living arrangements comments: partner Occupation/Education: occupation Additional occupation/education comments: Visiting [employer] Gender identity (if verbalized by the patient): Female Sexual Orientation (if Verbalized by the Patient): Straight or Heterosexual Spiritual care concerns: No Comments At the time of my signature, I reviewed and agree with the nursing past medical, surgical, social, and family history. There is no relevant family history pertinent to the patient complaint. Exam Narrative: GENERAL: This is a well-nourished, well-developed adult, in no apparent distress. They are non ill-appearing, nontoxic appearing. HEAD: normocephalic, atraumatic. EYES: Sclera clear/white. Conjunctiva normal. Vision is grossly intact. Extraocular movements intact EARS: External ears normal, auditory canals clear and without drainage, right TM normal without perforation. Left TM erythematous with suppuration. No perforation. Hearing grossly intact. NOSE: External nose normal with no obvious nasal discharge, nasal turbinates erythematous, no rhinorrhea. THROAT: Mucous membranes moist, posterior pharynx erythematous. PND present. Uvula midline. NECK: Neck supple, non-tender without lymphadenopathy, masses or thyromegaly. CARDIOVASCULAR: Regular rate and rhythm without murmurs, gallops, or rubs. RESPIRATORY: Clear to auscultation. Breath sounds equal bilaterally. No wheezes, rales, or rhonchi. GASTROINTESTINAL: Abdomen soft, non-tender, nondistended. Bowel sounds are active. No hepato-splenomegaly, or palpable masses. No guarding or rigidity. SKIN: warm, Dry, intact with no suspicious lesions or rash, good texture and turgor. NEURO: awake, alert, and oriented to person, place and time. There were no obvious focal neurologic abnormalities. EXTREMITIES: No joint tenderness, effusion, or edema noted. BACK: Nontender without deformity. No CVA tenderness. Course Course Level of Care: Express Care Visit Vital Signs Vital signs: Vital Signs Temperature 97.8 F 10/06/25 19:25 Pulse Rate 105 H 10/06/25 19:25 Respiratory Rate 14 10/06/25 19:25 Blood Pressure 138/92 H 10/06/25 19:25 Pulse Oximetry 100 10/06/25 19:25 Oxygen Delivery Room Air 10/06/25 19:25 Temperature 97.8 F 10/06/25 19:25 Pulse Rate 105 H 10/06/25 19:25 Respiratory Rate 14 10/06/25 19:25 Blood Pressure 138/92 H 10/06/25 19:25 Pulse Oximetry 100 10/06/25 19:25 Oxygen Delivery Room Air 10/06/25 19:25 MDM MDM Narrative Medical decision making narrative: Rapid flu a is positive. Negative COVID and strep. Throat culture pending. Appears patient has a left-sided otitis media. Given patient's length of symptoms of the flu for last 8 days with no symptom improvement discussed through shared decision making about starting Tamiflu, patient like to go ahead and start treatment. Also send patient home with cefdinir for ear infection. Patient has allergy to penicillins, azithromycin, doxycycline, and clindamycin. Patient reports history of rashes to these medications, no history of anaphylaxis. No history any reaction to cephalosporins. Urine dipstick negative for urinary tract infection, urine culture is pending. Urine test is negative as patient was concerned about . Patient nontoxic appearing, no apparent distress. Vital signs hemodynamically stable. Discussed physical exam findings. Advised supportive measures and signs/symptoms to go to the ER. Pt is appropriate for outpt treatment and f/u. Differential Diagnosis Differential Diagnosis: Differential diagnostic considerations for upper respiratory infection include upper respiratory infection, croup, otitis media, sinusitis, viral infection, bronchitis, influenza, pharyngitis, strep, uvulitis, urinary tract infection, pyelonephritis, cystitis. Lab Data [facility] Lab Attestation statement: I personally reviewed the patient's lab results. Labs: Lab Results 10/06/25 Range/Units 19:18 POC Urine Color Yellow POC Urine Clarity Clear POC Urine pH 6.0 POC Ur Specif [place] 1.025 POC Urine Protein 1+ (Negative) POC Ur Glucose (UA) Negative (Negative) POC Urine Ketones Negative (Negative) POC Urine Blood Negative (Negative) POC Urine Nitrite Negative (Negative) POC Urine Bilirubin Negative (Negative) POC Urine Urobilinogen 0.2 POC U Leukocyte Esteras Negative (Negative) POC Urine HCG, Qual Negative (Negative) POC Influenza A Ag Positive (Negative) POC Influenza B Ag Negative (Negative) POC SARS CoV-2 Ag Negative (Negative) POC Grp A Strep Screen Negative (Negative) Critical Care Time Critical Care Time Critical Care Time: No Discharge Plan Discharge Clinical Impression: Influenza Otitis media Qualifiers: Otitis media type: suppurative Chronicity: acute Laterality: left Recurrence: non-recurrent Spontaneous tympanic membrane rupture: without spontaneous rupture Qualified Code(s): H66.002 - Acute suppurative otitis media without spontaneous rupture of ear drum, left ear Patient Disposition: Home Condition: Stable Instructions: Antibiotic Form, Influenza (ED), Ear Infection (ED) Additional Instructions: Your rapid strep is negative throat culture be sent off it is positive for strep you will be contacted. Urine culture will be sent off and if it is positive for bacteria will be contacted started on appropriate antibiotics. You tested positive for flu A. Also appears to have an ear infection in the left ear. Urine test is negative today. Take the Tamiflu as directed. Take the cefdinir as directed for ear infection. You should avoid crowds until you are fever free for 24 hours without the use of fever reducing medications, or the symptoms are improved Rest. Drink plenty of fluids. Tylenol or ibuprofen as needed for pain or fevers. Recommend Flonase spray and Zyrtec (or Claritin/Pauline) for sinus pressure/congestion over the counter Cough syrup may cause drowsiness; avoid driving or take it at night time. Follow up with your primary care provider 3-5 days. Go to the ER for worsening symptoms, chest pain, breathing problems, weakness, vomiting, abdominal pain, or any other serious concerns Patient Language: Telugu Prescriptions: New cefdinir 300 mg capsule 300 mg PO Q12H 7 Days Qty: 14 0RF oseltamivir [Tamiflu] 75 mg capsule 75 mg PO Q12H 5 Days Qty: 10 0RF No Action medroxyprogesterone [Provera] 10 mg tablet 10 mg PO DAILY Qty: 10 0RF Follow-up/Referrals: PHYSICIAN,REGULATORY AFFAIRS STRATEGY SPECIALIST [Primary Care Provider, Internal Medicine] Stand Alone Forms: Work/School Release IP Time of Disposition: 19:39
== END 2025-10-06 19:45 | disposition home or self-care (01) ==
DX: J10.1 Influenza due to other identified influenza virus with other respiratory manifestations (principal); H66.002 Acute suppurative otitis media without spontaneous rupture of ear drum, left ear; Z20.822 Contact with and (suspected) exposure to COVID-19
CPT/HCPCS: 81003; 81025; 87081; 87086; 87426; 87804; 87880; 99213; G0463